=== PATIENT | female | born 1935 | race Caucasian/White ===

== ENCOUNTER → 2018-06-23 11:07 | Outpatient (CLI) | payer MEDICARE, SELFPAY ==
[2018-06-23 12:11] LABS: Prothrombin Time 27.8 sec (9.3-10.8)
== END ==
DX: I26.99 Other pulmonary embolism without acute cor pulmonale (principal); Z79.01 Long term (current) use of anticoagulants
CPT/HCPCS: 36415; 85610

== ENCOUNTER 2018-07-22 13:01 | Outpatient (CLI) | payer MEDICARE, SELFPAY ==
[2018-07-22 14:17] LABS: Prothrombin Time 27.9 sec (9.3-10.8)
== END 2018-07-22 13:21 ==
DX: I26.99 Other pulmonary embolism without acute cor pulmonale (principal); Z79.01 Long term (current) use of anticoagulants
CPT/HCPCS: 36415; 85610

== ENCOUNTER 2018-09-18 12:52 | Outpatient (CLI) | payer MEDICARE, SELFPAY ==
[2018-09-18 13:20] LABS: INR 2.2 (1.0-3.5); Prothrombin Time 20.5 sec (9.3-10.8)
== END 2018-09-18 13:12 ==
DX: I26.99 Other pulmonary embolism without acute cor pulmonale (principal); Z79.1 Long term (current) use of non-steroidal anti-inflammatories (NSAID)
CPT/HCPCS: 36415; 85610

== ENCOUNTER 2018-10-14 12:44 | Outpatient (CLI) | payer MEDICARE, SELFPAY ==
--- NOTE | 2018-10-14 12:45 | DI.RAD_ITS ---
SYMPTOMS/DIAGNOSIS: RT HIP PAIN, ALYSSA ROSA, M25.551 AP PELVIS: Comparison 03/18/17. There are again seen post surgical changes of bilateral total hip replacements. No evidence of hardware failure is seen. The bones are intact and normally mineralized. The soft tissues are unremarkable. IMPRESSION: Stable bilateral THR.
== END 2018-10-14 13:04 ==
PROVIDERS: Visit Provider Orthopaedic Surgery
DX: M25.551 Pain in right hip (principal); Z96.643 Presence of artificial hip joint, bilateral
CPT/HCPCS: 72170

== ENCOUNTER 2018-10-14 12:46 | Outpatient (CLI) | payer MEDICARE, SELFPAY ==
[2018-10-14 13:10] LABS: INR 2.5 (1.0-3.5)
== END 2018-10-14 13:06 ==
DX: I26.99 Other pulmonary embolism without acute cor pulmonale (principal); Z79.01 Long term (current) use of anticoagulants
CPT/HCPCS: 36415; 72170; 85610

== ENCOUNTER → 2018-10-17 08:49 | Outpatient (BNVA) | payer MEDICARE, SELFPAY | PROVIDERS: Visit Provider Orthopaedic Surgery | DX: M79.604 Pain in right leg (principal); I10 Essential (primary) hypertension | CPT/HCPCS: 99211; 99213 ==

== ENCOUNTER 2018-11-19 16:14 | Outpatient (CLI) | payer MEDICARE, SELFPAY ==
[2018-11-19 16:58] LABS: INR 2.9 (0.9-1.1); Prothrombin Time 29.7 sec (9.3-11.0)
== END 2018-11-19 16:34 ==
DX: I26.99 Other pulmonary embolism without acute cor pulmonale (principal); Z79.01 Long term (current) use of anticoagulants
CPT/HCPCS: 36415; 85610

== ENCOUNTER → 2018-11-25 08:45 | Outpatient (BNVA) | payer MEDICARE, SELFPAY | PROVIDERS: Visit Provider Orthopaedic Surgery | DX: M17.0 Bilateral primary osteoarthritis of knee (principal); I10 Essential (primary) hypertension | CPT/HCPCS: 20610; 99213; J7325 ==

== ENCOUNTER 2018-12-06 09:51 | Outpatient (CLI) | payer MEDICARE, SELFPAY ==
[2018-12-06 12:01] LABS: ALT 30 U/L (12-78); AST 18 U/L (15-37); Albumin 3.9 g/dL (3.4-5.0); Alkaline Phosphatase 74 U/L (46-116); Anion Gap 6.5 mmol/L (3-11); BUN 31 mg/dL (7-18); Bilirubin, Total 0.9 mg/dL (0.2-1.0); CO2 30.5 mmol/L (21.0-32.0); CREATININE 0.86 mg/dL (0.55-1.02); Chloride 104 mmol/L (98-107); Glucose 96 mg/dL (70-100); Sodium 141 mmol/L (136-145); TSH (W/Ref FT4) 2.39 uIU/mL (0.358-3.74); Total Protein 6.7 g/dL (6.4-8.2)
== END 2018-12-06 10:11 ==
DX: E03.9 Hypothyroidism, unspecified (principal); I10 Essential (primary) hypertension; G47.00 Insomnia, unspecified
CPT/HCPCS: 36415; 80053; 84443

== ENCOUNTER 2019-01-20 07:56 | Outpatient (CLI) | payer MEDICARE, SELFPAY ==
--- NOTE | 2019-01-20 12:00 | DI.MAMMO_ITS ---
SYMPTOMS/DIAGNOSIS: SCREENING, Z12.31 MAMMOGRAM: Mammograms were interpreted according to the usual protocol including computer analysis with CAD system, tomosynthesis and C view imaging. Comparison is made with prior examinations. Breast density B. No suspicious masses or microcalcifications are seen. The skin and axilla are unremarkable. There is appears to be artifact over the posterior right breast on the mediolateral oblique view. A repeat view of the right MLO should be obtained at no charge to the patient. IMPRESSION: No evidence for malignancy. Category 0. MQSA ASSESSMENT OF FINDINGS: Incomplete: Needs additional imaging evaluation. Category 0. Patient will receive a letter notifying them of these results. BI-RADS category B. There are scattered areas of fibroglandular density.
== END 2019-01-20 08:16 ==
DX: Z12.31 Encounter for screening mammogram for malignant neoplasm of breast (principal); N64.59 Other signs and symptoms in breast; R92.8 Other abnormal and inconclusive findings on diagnostic imaging of breast
CPT/HCPCS: 77063; 77067

== ENCOUNTER 2019-01-29 00:39 | Outpatient (CLI) | payer MEDICARE, SELFPAY ==
--- NOTE | 2019-01-29 10:00 | DI.MAMMO_ITS ---
SYMPTOMS/DIAGNOSIS: F/U MAMMO, ARTIFACT OVER POSTERIOR RT BREAST ON MLO VIEW REPEAT MLO VIEWS OF THE RIGHT BREAST: Additional images are interpreted according to the usual protocol including tomosynthesis and 2D imaging. The follow up images are of good technical quality and reveal no findings to suggest a malignancy. Category I examination. Yearly screening mammography is recommended. Breast density Category B. MQSA ASSESSMENT OF FINDINGS: Negative. Category 1. Patient will receive a letter notifying them of these results. BI-RADS category B. There are scattered areas of fibroglandular density.
== END 2019-01-29 00:59 ==
DX: Z12.31 Encounter for screening mammogram for malignant neoplasm of breast (principal); R92.8 Other abnormal and inconclusive findings on diagnostic imaging of breast; N64.59 Other signs and symptoms in breast
CPT/HCPCS: 77063; 77067

== ENCOUNTER 2019-02-18 12:29 | Outpatient (CLI) | payer MEDICARE, SELFPAY ==
[2019-02-18 13:09] LABS: INR 2.5 (0.9-1.1); Prothrombin Time 24.8 sec (9.3-11.0)
== END 2019-02-18 12:49 ==
DX: I26.99 Other pulmonary embolism without acute cor pulmonale (principal); Z79.01 Long term (current) use of anticoagulants
CPT/HCPCS: 36415; 85610

== ENCOUNTER 2019-03-10 09:49 | Outpatient (CLI) | payer MEDICARE, SELFPAY ==
[2019-03-10 11:21] LABS: INR 2.4 (0.9-1.1)
== END 2019-03-10 10:09 ==
DX: I26.99 Other pulmonary embolism without acute cor pulmonale (principal); Z79.01 Long term (current) use of anticoagulants
CPT/HCPCS: 36415; 85610

== ENCOUNTER 2019-03-26 09:41 | Outpatient (CLI) | payer MEDICARE, SELFPAY ==
[2019-03-26 10:14] LABS: INR 2.3 (0.9-1.1); Prothrombin Time 22.7 sec (9.3-11.0)
== END 2019-03-26 10:01 ==
DX: I26.99 Other pulmonary embolism without acute cor pulmonale (principal); Z79.01 Long term (current) use of anticoagulants
CPT/HCPCS: 36415; 85610

== ENCOUNTER 2019-04-28 10:14 | Outpatient (CLI) | payer MEDICARE, SELFPAY ==
[2019-04-28 11:13] LABS: INR 2.4 (0.9-1.1); Prothrombin Time 23.9 sec (9.3-11.0)
== END 2019-04-28 10:34 ==
DX: I26.99 Other pulmonary embolism without acute cor pulmonale (principal); Z79.01 Long term (current) use of anticoagulants
CPT/HCPCS: 36415; 85610

== ENCOUNTER → 2019-05-26 09:43 | Outpatient (BNVA) | payer MEDICARE, SELFPAY | PROVIDERS: Visit Provider Orthopaedic Surgery | DX: M17.0 Bilateral primary osteoarthritis of knee (principal); M17.11 Unilateral primary osteoarthritis, right knee; M17.12 Unilateral primary osteoarthritis, left knee; I10 Essential (primary) hypertension | CPT/HCPCS: 20610; 99213; J7325 ==

== ENCOUNTER 2019-05-28 10:21 | Outpatient (CLI) | payer MEDICARE, SELFPAY ==
[2019-05-28 11:14] LABS: INR 2.8 (0.9-1.1); Prothrombin Time 28.4 sec (9.3-11.0)
== END 2019-05-28 10:41 ==
DX: I26.99 Other pulmonary embolism without acute cor pulmonale (principal); Z79.01 Long term (current) use of anticoagulants
CPT/HCPCS: 36415; 85610

== ENCOUNTER 2019-06-30 13:31 | Outpatient (CLI) | payer MEDICARE, SELFPAY ==
[2019-06-30 14:35] LABS: INR 2.9 (0.9-1.1); Prothrombin Time 29.1 sec (9.3-11.0)
== END 2019-06-30 13:51 ==
DX: I26.99 Other pulmonary embolism without acute cor pulmonale (principal); Z79.01 Long term (current) use of anticoagulants
CPT/HCPCS: 36415; 85610

== ENCOUNTER 2019-07-30 09:35 | Outpatient (CLI) | payer MEDICARE, SELFPAY ==
[2019-07-30 10:05] LABS: INR 2.6 (0.9-1.1); Prothrombin Time 25.8 sec (9.3-11.0)
== END 2019-07-30 09:55 ==
DX: I26.99 Other pulmonary embolism without acute cor pulmonale (principal); Z79.01 Long term (current) use of anticoagulants
CPT/HCPCS: 36415; 85610

== ENCOUNTER 2019-09-08 10:35 | Outpatient (CLI) | payer MEDICARE, SELFPAY ==
[2019-09-08 11:52] LABS: INR 2.1 (0.9-1.1); Prothrombin Time 20.8 sec (9.3-11.0)
== END 2019-09-08 10:55 ==
DX: I26.99 Other pulmonary embolism without acute cor pulmonale (principal); Z79.01 Long term (current) use of anticoagulants
CPT/HCPCS: 36415; 85610

== ENCOUNTER 2019-10-12 13:48 | Outpatient (CLI) | payer MEDICARE, SELFPAY ==
[2019-10-12 14:30] LABS: INR 2.7 (0.9-1.1); Prothrombin Time 26.9 sec (9.3-11.0)
== END 2019-10-12 14:08 ==
DX: I26.99 Other pulmonary embolism without acute cor pulmonale (principal); Z79.01 Long term (current) use of anticoagulants
CPT/HCPCS: 36415; 85610

== ENCOUNTER 2019-11-12 10:18 | Outpatient (CLI) | payer MEDICARE, SELFPAY ==
[2019-11-12 10:45] LABS: INR 2.7 (0.9-1.1); Prothrombin Time 26.9 sec (9.3-11.0)
== END 2019-11-12 10:38 ==
DX: I26.99 Other pulmonary embolism without acute cor pulmonale (principal); Z79.01 Long term (current) use of anticoagulants
CPT/HCPCS: 36415; 85610

== ENCOUNTER → 2019-11-23 08:47 | Outpatient (BNVA) | payer MEDICARE, SELFPAY | PROVIDERS: Visit Provider Student in an Organized Health Care Education/Training Program | DX: M17.11 Unilateral primary osteoarthritis, right knee (principal); M17.12 Unilateral primary osteoarthritis, left knee; M25.561 Pain in right knee; M25.562 Pain in left knee | CPT/HCPCS: 20610; 99214; J7325 ==

== ENCOUNTER 2019-12-19 01:38 | Outpatient (CLI) | payer MEDICARE, SELFPAY ==
[2019-12-19 09:28] LABS: INR 2.4 (0.9-1.1); Prothrombin Time 23.9 sec (9.3-11.0)
[2019-12-19 11:12] LABS: ALT 26 U/L (14-59); AST 22 U/L (15-37); Alkaline Phosphatase 76 U/L (46-116); BUN 22 mg/dL (7-18); Bilirubin, Total 0.9 mg/dL (0.2-1.0); CREATININE 0.74 mg/dL (0.55-1.02); Calcium 8.8 mg/dL (8.5-10.1); Chloride 102 mmol/L (98-107); Glucose 83 mg/dL (74-106); Potassium 3.9 mmol/L (3.5-5.1); Sodium 141 mmol/L (136-145); TSH (W/Ref FT4) 4.26 uIU/mL (0.36-3.74); Total Protein 7.1 g/dL (6.4-8.2)
[2019-12-19 11:42] LABS: FREE T4 0.93 ng/dL (0.76-1.46)
== END 2019-12-19 01:58 ==
DX: E03.9 Hypothyroidism, unspecified (principal); E05.00 Thyrotoxicosis with diffuse goiter without thyrotoxic crisis or storm; I10 Essential (primary) hypertension; F32.9 Major depressive disorder, single episode, unspecified; I26.99 Other pulmonary embolism without acute cor pulmonale; Z79.01 Long term (current) use of anticoagulants; G47.33 Obstructive sleep apnea (adult) (pediatric); R94.31 Abnormal electrocardiogram [ECG] [EKG]; M15.9 Polyosteoarthritis, unspecified
CPT/HCPCS: 36415; 80053; 84439; 84443; 85610

== ENCOUNTER 2020-01-22 02:08 | Outpatient (CLI) | payer MEDICARE, SELFPAY ==
--- NOTE | 2020-01-22 13:28 | DI.MAMMO_ITS ---
EXAM: MG MAMMO SCREENING CLINICAL HISTORY: SCREENING, Z12.39 TECHNIQUE: Bilateral full field digital CC and MLO mammographic images were obtained with 3D tomosyn thesis and utilizing computer aided detection (CAD). COMPARISON: Available for comparison. FINDINGS: Masses/Architectural Distortion: None seen. Microcalcifications: No suspicious pleomorphic-type are seen. Skin Thickening/Nipple Retraction: None. IMPRESSION: 1. No significant interval change with no specific features of malignancy noted. 2. Unless there is more urgent need, screening mammography is recommended, as per [employer] guidelines. BI-RADS Cat 1 - Negative Breast Density - Category B - Scattered areas of fibroglandular density A negative radiographic report should not delay biopsy if a dominant or clinically suspicious mass is present. Up to ten percent of cancers are not identified on mammography. A negative report may reinforce clinical impression. Adenosis and dense breasts may obscure an underlying neoplasm. False positive reports average 6 to 10%. Patient will receive a letter notifying them of these results.
== END 2020-01-22 02:28 ==
DX: Z12.31 Encounter for screening mammogram for malignant neoplasm of breast (principal)
CPT/HCPCS: 77063; 77067

== ENCOUNTER 2020-01-26 02:17 | Outpatient (CLI) | payer MEDICARE, SELFPAY ==
[2020-01-26 09:51] LABS: INR 2.1 (0.9-1.1); Prothrombin Time 20.6 sec (9.3-11.0)
[2020-01-26 10:37] LABS: Calculated LDL 151 mg/dL (<100); Cholesterol 249 mg/dL (<200); HDL Cholesterol 78 mg/dL (40-60); TSH (W/Ref FT4) 4.23 uIU/mL (0.36-3.74); Triglyceride 100 mg/dL (<150)
[2020-01-26 10:55] LABS: FREE T4 0.81 ng/dL (0.76-1.46)
== END 2020-01-26 02:37 ==
DX: E78.5 Hyperlipidemia, unspecified (principal); E05.00 Thyrotoxicosis with diffuse goiter without thyrotoxic crisis or storm; G47.00 Insomnia, unspecified; I26.99 Other pulmonary embolism without acute cor pulmonale; Z79.01 Long term (current) use of anticoagulants
CPT/HCPCS: 36415; 80061; 84439; 84443; 85610

== ENCOUNTER → 2020-05-23 08:56 | Outpatient (BNVA) | payer MEDICARE, SELFPAY | PROVIDERS: Visit Provider Student in an Organized Health Care Education/Training Program | DX: M17.11 Unilateral primary osteoarthritis, right knee (principal); M17.12 Unilateral primary osteoarthritis, left knee; I10 Essential (primary) hypertension | CPT/HCPCS: 20610; 99212; 99213; J7325 ==

== ENCOUNTER 2020-08-17 01:22 | Outpatient (CLI) | payer MEDICARE, SELFPAY ==
[2020-08-17 11:51] LABS: INR 2.7 (0.9-1.1); Prothrombin Time 26.1 sec (9.3-11.0)
== END 2020-08-17 01:42 ==
DX: I26.99 Other pulmonary embolism without acute cor pulmonale (principal); Z79.01 Long term (current) use of anticoagulants
CPT/HCPCS: 36415; 85610

== ENCOUNTER 2020-09-20 01:56 | Outpatient (CLI) | payer MEDICARE, SELFPAY ==
[2020-09-20 10:01] LABS: Prothrombin Time 24.1 sec (9.3-11.0)
[2020-09-20 10:09] LABS: INR 2.4 (0.9-1.1)
== END 2020-09-20 02:16 ==
DX: Z79.01 Long term (current) use of anticoagulants (principal); I26.99 Other pulmonary embolism without acute cor pulmonale
CPT/HCPCS: 36415; 85610

== ENCOUNTER 2020-10-24 02:36 | Outpatient (CLI) | payer MEDICARE, SELFPAY ==
[2020-10-24 11:37] LABS: INR 1.7 (0.9-1.1)
== END 2020-10-24 02:56 ==
DX: I26.99 Other pulmonary embolism without acute cor pulmonale (principal); Z79.01 Long term (current) use of anticoagulants
CPT/HCPCS: 36415; 85610

== ENCOUNTER 2020-11-07 15:21 | Outpatient (CLI) | payer MEDICARE, SELFPAY ==
[2020-11-07 12:53] LABS: INR 2.6 (0.9-1.1); Prothrombin Time 25.2 sec (9.3-11.0)
== END 2020-11-07 15:41 ==
DX: I26.99 Other pulmonary embolism without acute cor pulmonale (principal); Z79.01 Long term (current) use of anticoagulants
CPT/HCPCS: 36415; 85610

== ENCOUNTER 2020-11-22 02:58 | Outpatient (CLI) | payer MEDICARE, SELFPAY ==
[2020-11-22 13:37] LABS: INR 2.9 (0.9-1.1); Prothrombin Time 28.2 sec (9.3-11.0)
== END 2020-11-22 03:18 ==
DX: I26.99 Other pulmonary embolism without acute cor pulmonale (principal); Z79.01 Long term (current) use of anticoagulants
CPT/HCPCS: 36415; 85610

== ENCOUNTER → 2020-11-28 08:53 | Outpatient (BNVA) | payer MEDICARE, SELFPAY | PROVIDERS: Visit Provider Student in an Organized Health Care Education/Training Program | DX: M17.11 Unilateral primary osteoarthritis, right knee (principal); M17.12 Unilateral primary osteoarthritis, left knee | CPT/HCPCS: 20610; 99212; J7325 ==

== ENCOUNTER 2021-01-12 04:07 | Outpatient (CLI) | payer MEDICARE, SELFPAY ==
[2021-01-12 12:08] LABS: ALT 24 U/L (14-59); AST 19 U/L (15-37); Albumin 3.9 g/dL (3.4-5.0); Alkaline Phosphatase 74 U/L (46-116); BUN 26 mg/dL (7-18); Bilirubin, Total 0.7 mg/dL (0.2-1.0); CREATININE 0.8 mg/dL (0.55-1.02); Calcium 8.9 mg/dL (8.5-10.1); Chloride 101 mmol/L (98-107); Glucose 88 mg/dL (74-106); Potassium 4.1 mmol/L (3.5-5.1); Sodium 138 mmol/L (136-145); TSH (W/Ref FT4) 3.64 uIU/mL (0.36-3.74)
== END 2021-01-12 04:08 | disposition home or self-care (01) ==
LOC: LBO 04:07
DX: I10 Essential (primary) hypertension (principal); E05.00 Thyrotoxicosis with diffuse goiter without thyrotoxic crisis or storm
CPT/HCPCS: 36415; 80053; 84443

== ENCOUNTER 2021-01-24 10:37 | Outpatient (REF) | payer MEDICARE, SELFPAY ==
--- NOTE | 2021-01-24 09:00 | SKI_PTH ---
PATIENT: Aziza Victor LOC: [facility] U#:[id number] AGE/SX: 85/F ROOM: RE01/24/[address]: Caroline Greenberg APRN : 1935 BED: DIS: 01/24/2021 SPEC #: [id number] RECD: 01/24/21 12:53 STATUS: VIKTOR REQ #: [id number] LUIS ARMANDO: 01/24/21 09:[address]: Caroline Greenberg DEPT: Surgical Specimen RECD BY: Melanie Reis Tissues: 1 - SKIN CYST/TAG/DEBRIDEMENT Procedures: GROSS AND MICRO LEVEL 3 Comments: [id number]
== END 2021-01-24 10:38 | disposition home or self-care (01) ==
LOC: LBN 10:37
DX: B07.8 Other viral warts (principal); Z85.828 Personal history of other malignant neoplasm of skin
CPT/HCPCS: 88304

== ENCOUNTER 2021-02-01 01:46 | Outpatient (CLI) | payer MEDICARE, SELFPAY ==
--- NOTE | 2021-02-01 10:49 | DI.MAMMO_ITS ---
EXAM: MG MAMMO SCREENING CLINICAL HISTORY: screening,Z12.39. TECHNIQUE: Bilateral full field digital CC and MLO mammographic images were obtained with 3D tomosyn thesis and utilizing computer aided detection (CAD). COMPARISON: Prior mammograms dating back to 2010, the most recent being January 2020. FINDINGS: There are no new spiculated masses nor malignant appearing microcalcification groups. Peripherally calcified small benign oil cyst in the medial right breast is unchanged. There is no significant architectural distortion nor skin thickening-retraction. IMPRESSION: No radiographic evidence of malignancy. BI-RADS Category 1 - Negative Breast Density - Category B - Scattered areas of fibroglandular density Breast density Category C or D implies that the patient has dense breast tissue. Dense breast tissue can make it harder to find cancer on a mammogram. Dense breast tissue is also associated with an incr eased risk of breast cancer. This information about the result of the mammogram report was provided to the patient to raise their awareness. Use this report when you speak with the patient about their risks for breast cancer, which includes their family history. At that time, you may recommend additional screening tests (Ultrasoun d or MRI) as these tests may add significant information. A negative radiographic report should not delay biopsy if a dominant or clinically suspicious mass is present. Up to ten percent of cancers are not identified on mammography. A negative report may reinforce clinical impression. Adenosis and dense breasts may obscure an underlying neoplasm. False positive reports average 6 to 10%. Patient will receive a letter notifying them of these results.
== END 2021-02-01 02:06 ==
DX: Z12.31 Encounter for screening mammogram for malignant neoplasm of breast (principal)
CPT/HCPCS: 77063; 77067

== ENCOUNTER 2021-03-06 04:28 | Outpatient (CLI) | payer MEDICARE, SELFPAY ==
[2021-03-06 13:15] LABS: INR 2.5 (0.9-1.1); Prothrombin Time 24.6 sec (9.3-11.0)
== END 2021-03-06 04:29 | disposition home or self-care (01) ==
LOC: LBO 04:28
DX: I26.99 Other pulmonary embolism without acute cor pulmonale (principal); Z79.01 Long term (current) use of anticoagulants
CPT/HCPCS: 36415; 85610

== ENCOUNTER 2021-04-07 02:06 | Outpatient (CLI) | payer MEDICARE, SELFPAY ==
[2021-04-07 16:35] LABS: INR 1.7 (0.9-1.1); Prothrombin Time 17.2 sec (9.3-11.0)
== END 2021-04-07 02:07 | disposition home or self-care (01) ==
LOC: LBO 02:07
DX: I26.99 Other pulmonary embolism without acute cor pulmonale (principal); Z79.01 Long term (current) use of anticoagulants
CPT/HCPCS: 36415; 85610

== ENCOUNTER 2021-04-18 04:02 | Outpatient (CLI) | payer MEDICARE, SELFPAY ==
[2021-04-18 08:25] LABS: INR 2.4 (0.9-1.1); Prothrombin Time 23.9 sec (9.3-11.0)
== END 2021-04-18 04:03 | disposition home or self-care (01) ==
LOC: LBO 04:02
DX: I26.99 Other pulmonary embolism without acute cor pulmonale (principal); Z79.01 Long term (current) use of anticoagulants
CPT/HCPCS: 36415; 85610

== ENCOUNTER 2021-04-26 03:07 | Outpatient (CLI) | payer MEDICARE, SELFPAY ==
[2021-04-26 12:59] LABS: INR 2.8 (0.9-1.1); Prothrombin Time 27.5 sec (9.3-11.0)
== END 2021-04-26 03:08 | disposition home or self-care (01) ==
LOC: LOS 03:08
DX: I26.99 Other pulmonary embolism without acute cor pulmonale (principal); Z79.01 Long term (current) use of anticoagulants
CPT/HCPCS: 36415; 85610

== ENCOUNTER 2021-05-23 04:07 | Outpatient (CLI) | payer MEDICARE, SELFPAY ==
[2021-05-23 08:32] LABS: INR 2.5 (0.9-1.1); Prothrombin Time 24.5 sec (9.3-11.0)
== END 2021-05-23 04:08 | disposition home or self-care (01) ==
LOC: LBO 04:07
DX: I26.99 Other pulmonary embolism without acute cor pulmonale (principal); Z79.01 Long term (current) use of anticoagulants
CPT/HCPCS: 36415; 85610

== ENCOUNTER 2021-06-08 11:05 | Outpatient (CLI) | payer MEDICARE, SELFPAY ==
--- OUTSIDE RECORDS SUMMARY | 2021-06-08 11:07 | XMS_ITS ---
:1935 Author Care Team Providers Name Role Phone ELENA ALIZE Primary Care Provider [phone] ELENA HERRMANN Referring Provider [phone] ELENA HERRMANN Primary Care Provider [phone] Allergies Code Code System Name Reaction Severity Status Onset 108364 RxNorm Escitalopram ? ? Active ? 50253 RxNorm Simvastatin ? ? Active ? Sulfa ? ? Active ? (Sulfonamide Antibiotics) Medications Name Status Start Date Stop Date ? ? acetaminophen 500 mg tablet Active ? Not available Take 2 tablets twice a day by oral route as needed. amlodipine 2.5 mg tablet Active ? Not kerry ilable Take 1 tablet every day by oral route. bupropion HCl 100 mg tablet Active ? Not available Take 1 tablet twice a day by oral route. Claritin-D 12 Hour Active ? Not available levothyroxine 50 mcg tablet Active ? Not available Take 1 tablet every day by oral route. losartan 100 mg tablet Active ? Not avail able Take 1 tablet every day by oral route. multivitamin tablet Active ? Not availabl e Take by oral route. Vitamin D2 10 mcg (400 unit) tablet Active ? Not available Take 1 tablet every day by oral route. warfarin 5 mg tablet Active ? Not availab le TAKE 0-2 TABLET (5 MG) BY ORAL ROUTE ONCE DAILY Problems Name Status Onset Date Source ? Hypothyroidism Active ? ? Depressive Disorder Active ? ? Hypertensive Disorder Active ? ? Sleep Apnea Active ? ? Procedures None recorded. Results Lab Results None recorded. Past Encounters None recorded. Social History None recorded. Vaccine List None recorded. Plan of Care Reminders Provider Appointments None ? ? recorded. Lab None ? ? recorded. Referral None ? ? recorded. Procedures None ? ? recorded. Surgeries None ? ? recorded. Imaging None ? ? recorded. Vitals Height Weight BMI Blood Pressure 167.01 cm 72.57 kg 26 kg/m2 146/60 mm[Hg]
--- OUTSIDE RECORDS SUMMARY | 2021-06-08 11:07 | XMS_ITS ---
:1935 Author Care Team Providers Name Role Phone [facility] Primary Care Provider [phone] ELENA HERRMANN Primary Care Provider [phone] Allergies Code Code System Name Reaction Severity Status Onset 368208 RxNorm Lexapro ? ? Active ? 96702 RxNorm Simvastatin ? ? Active ? Sulfa ? ? Active ? (Sulfonamide Antibiotics) Medications Name Status Start Date Stop Date ? ? acetaminophen 500 mg tablet Active ? Not available Take 1000 mg twice a day by oral route. amlodipine 2.5 mg tablet Active ? Not kerry ilable Take 1 tablet every day by oral route. bupropion HCl 100 mg tablet Active ? Not available Take 1 tablet every day by oral route. doxepin 10 mg capsule Completed ? 05/10/2020 Take 1 PO QHS Flonase Allergy Relief 50 mcg/actuation nasal spray,suspension A ctive ? Not available [place] 1 spray every day by intranasal route as needed. levothyroxine 50 mcg tablet Active ? Not available Take 1 tablet every day by oral route. loratadine 10 mg tablet Active ? Not avai lable Take 1 tablet every day by oral route as needed. losartan 100 mg tablet Active ? Not avail able Take 1 tablet every day by oral route. multivitamin Active ? Not available 1 tab daily Silenor 3 mg tablet Completed ? 02/09/2020 Take 1 tablet every day by oral route at bedtime for 30 days. triamcinolone acetonide 0.5 % topical cream Active ? Not available APPLY A THIN LAYER TO THE AFFECTED AREA(S) BY TOPICAL ROUTE 2 T IMES PER DAY warfarin Active ? Not available 5mg four days week. 2.5mg three days week Problems Name Status Onset Date Source ? Polyp of Colon Active 06/24/2019 ? Graves' Disease Active 06/24/2019 ? Hyperlipidemia Active 06/24/2019 ? Depressive Disorder Active 06/24/2019 ? Obstructive Sleep Apnea Syndrome Active 06/24/2019 ? Otitis Externa Active 06/24/2019 ? Hypertensive Disorder Active 06/24/2019 ? Pulmonary Embolism Active 06/24/2019 ? Chronic Rhinitis Active 06/24/2019 ? Genuine Stress Incontinence Active 06/24/2019 ? Chronic Dermatitis Active 06/24/2019 ? Eczema Active 06/24/2019 ? Osteoarthritis of Knee Active 06/24/2019 ? Low Back Pain Active 06/24/2019 ? Electrocardiogram Abnormal Active 06/24/2019 ? Insomnia Active 09/01/2019 ? Procedures None recorded. Results Lab Results None recorded. Past Encounters 11/23/2020 Obstructive Sleep Apnea Syndrome; Insomn ia Suzanne Leo POULTRY SCALDER: [address] [place] [phone], Ph. Social History Tobacco Smoking Status Former Smoker Notes: quit in 1966 Vaccine List None recorded. Plan of Care Reminders Provider Appointments None ? ? recorded. Lab None ? ? recorded. Referral None ? ? recorded. Procedures None ? ? recorded. Surgeries None ? ? recorded. Imaging None ? ? recorded. Vitals 11/23/2020 09:00AM Office 30 Weight Blood Pressure 73.94 kg 128/60 mm[Hg] 11/17/2019 10:30AM Office 30 Height Weight BMI Blood Pressure 165.1 cm 73.94 kg 27.1 kg/m2 138/64 mm[Hg] 09/01/2019 11:15AM Office 30 Height Weight BMI Blood Pressure 165.1 cm 72.21 kg 26.5 kg/m2 130/70 mm[Hg] 06/25/2019 09:15AM New Patient 47 Height Weight BMI Blood Pressure 165.1 cm 71.99 kg 26.4 kg/m2 120/70 mm[Hg]
== END 2021-06-08 11:06 | disposition home or self-care (01) ==
LOC: DIORS 11:05
PROVIDERS: Visit Provider Student in an Organized Health Care Education/Training Program
DX: M17.12 Unilateral primary osteoarthritis, left knee (principal); M17.11 Unilateral primary osteoarthritis, right knee
CPT/HCPCS: 20610; J7325

== ENCOUNTER 2021-06-27 03:47 | Outpatient (CLI) | payer MEDICARE, SELFPAY ==
[2021-06-27 11:19] LABS: INR 2.6 (0.9-1.1); Prothrombin Time 25.3 sec (9.3-11.0)
== END 2021-06-27 03:48 | disposition home or self-care (01) ==
LOC: LBO 03:47
DX: I26.99 Other pulmonary embolism without acute cor pulmonale (principal); Z79.01 Long term (current) use of anticoagulants
CPT/HCPCS: 36415; 85610

== ENCOUNTER 2021-07-31 02:51 | Outpatient (CLI) | payer MEDICARE, SELFPAY ==
[2021-07-31 10:34] LABS: Prothrombin Time 29.6 sec (9.3-11.0)
== END 2021-07-31 02:52 | disposition home or self-care (01) ==
LOC: LBO 02:51
DX: I26.99 Other pulmonary embolism without acute cor pulmonale (principal); Z79.01 Long term (current) use of anticoagulants
CPT/HCPCS: 36415; 85610

== ENCOUNTER 2021-09-07 02:03 | Outpatient (CLI) | payer MEDICARE, SELFPAY ==
[2021-09-07 10:47] LABS: INR 2.6 (0.9-1.1); Prothrombin Time 25.6 sec (9.3-11.0)
== END 2021-09-07 02:04 | disposition home or self-care (01) ==
LOC: LBO 02:04
DX: Z51.81 Encounter for therapeutic drug level monitoring (principal)
CPT/HCPCS: 36415; 85610

== ENCOUNTER 2021-10-06 02:45 | Outpatient (CLI) | payer MEDICARE, SELFPAY ==
[2021-10-06 09:14] LABS: INR 2.7 (0.9-1.1); Prothrombin Time 26.1 sec (9.3-11.0)
== END 2021-10-06 02:46 | disposition home or self-care (01) ==
LOC: LBO 02:45
DX: Z51.81 Encounter for therapeutic drug level monitoring (principal)
CPT/HCPCS: 36415; 85610

== ENCOUNTER 2021-11-15 04:17 | Outpatient (CLI) | payer MEDICARE, SELFPAY ==
[2021-11-15 14:04] LABS: INR 2.6 (0.9-1.1); Prothrombin Time 25.7 sec (9.3-11.0)
== END 2021-11-15 04:18 | disposition home or self-care (01) ==
LOC: LBO 04:17
DX: Z51.81 Encounter for therapeutic drug level monitoring (principal)
CPT/HCPCS: 36415; 85610

== ENCOUNTER → 2021-12-11 13:30 | Outpatient (BNVA) | payer MEDICARE, SELFPAY | PROVIDERS: Visit Provider Student in an Organized Health Care Education/Training Program | DX: M17.11 Unilateral primary osteoarthritis, right knee (principal); M17.12 Unilateral primary osteoarthritis, left knee | CPT/HCPCS: 20610; J7325 ==

== ENCOUNTER 2022-01-05 04:25 | Outpatient (CLI) | payer MEDICARE, SELFPAY ==
[2022-01-05 14:11] LABS: INR 2.5 (0.9-1.1); Prothrombin Time 24.7 sec (9.3-11.0)
== END 2022-01-05 04:26 | disposition home or self-care (01) ==
LOC: LBO 04:25
DX: Z51.81 Encounter for therapeutic drug level monitoring (principal); I26.99 Other pulmonary embolism without acute cor pulmonale
CPT/HCPCS: 36415; 85610

== ENCOUNTER 2022-02-09 02:29 | Outpatient (CLI) | payer MEDICARE, SELFPAY ==
[2022-02-09 11:50] LABS: INR 2.4 (0.9-1.1); Prothrombin Time 23.2 sec (9.3-11.0)
== END 2022-02-09 02:30 | disposition home or self-care (01) ==
DX: Z51.81 Encounter for therapeutic drug level monitoring (principal)
CPT/HCPCS: 36415; 85610

== ENCOUNTER 2022-03-13 02:21 | Outpatient (CLI) | payer MEDICARE, SELFPAY | END 2022-03-13 02:22 | disposition home or self-care (01) | LOC: LBO 02:21 ==

== ENCOUNTER 2022-03-16 01:31 | Outpatient (CLI) | payer MEDICARE, SELFPAY ==
--- NOTE | 2022-03-16 08:22 | DI.MAMMO_ITS ---
Exam(s) MAMMO SCREENING EXAM: MAMMO SCREENING CLINICAL HISTORY: screening,z12.39. TECHNIQUE: Bilateral full field digital CC and MLO mammographic images were obtained with 3D tomosyn thesis and utilizing computer aided detection (CAD). COMPARISON: Prior mammograms were reviewed, the most recent being January 2021. FINDINGS: There has been no significant change in the appearance and distribution of the fibroglandular tissue. Benign peripherally calcified small oil cyst in the medial aspect the right breast is unchanged There are no new spiculated masses nor malignant appearing microcalcification groups. There is no significant architectural distortion nor skin thickening-retraction. IMPRESSION: No radiographic evidence of malignancy. BI-RADS Category 1 - Negative Breast Density - Category B - Scattered areas of fibroglandular density Breast density Category C or D implies that the patient has dense breast tissue. Dense breast tissue can make it harder to find cancer on a mammogram. Dense breast tissue is also associated with an incr eased risk of breast cancer. This information about the result of the mammogram report was provided to the patient to raise their awareness. Use this report when you speak with the patient about their risks for breast cancer, which includes their family history. At that time, you may recommend additional screening tests (Ultrasoun d or MRI) as these tests may add significant information. A negative radiographic report should not delay biopsy if a dominant or clinically suspicious mass is present. Up to ten percent of cancers are not identified on mammography. A negative report may reinforce clinical impression. Adenosis and dense breasts may obscure an underlying neoplasm. False positive reports average 6 to 10%. Patient will receive a letter notifying them of these results.
== END 2022-03-16 01:51 ==
DX: Z12.31 Encounter for screening mammogram for malignant neoplasm of breast (principal); N60.01 Solitary cyst of right breast
CPT/HCPCS: 36415; 77063; 77067; 80053; 80061; 84443; 85610

== ENCOUNTER 2022-03-16 02:54 | Outpatient (CLI) | payer MEDICARE, SELFPAY ==
[2022-03-16 08:45] LABS: INR 2.4 (0.9-1.1); Prothrombin Time 23.5 sec (9.3-11.0)
[2022-03-16 10:26] LABS: ALT 25 U/L (14-59); AST 19 U/L (15-37); Alkaline Phosphatase 77 U/L (46-116); Anion Gap 8.1 mmol/L (3-11); BUN 23 mg/dL (7-18); CO2 27.9 mmol/L (21.0-32.0); CREATININE 0.8 mg/dL (0.55-1.02); Calcium 8.5 mg/dL (8.5-10.1); Calculated LDL 157 mg/dL (<100); Chloride 102 mmol/L (98-107); Cholesterol 259 mg/dL (<200); Glucose 97 mg/dL (74-106); HDL Cholesterol 87 mg/dL (40-60); Potassium 4.2 mmol/L (3.5-5.1); Sodium 138 mmol/L (136-145); TSH (W/Ref FT4) 2.62 uIU/mL (0.36-3.74); Total Protein 7.2 g/dL (6.4-8.2); Triglyceride 76 mg/dL (<150)
== END 2022-03-16 02:55 | disposition home or self-care (01) ==
LOC: LBO 02:55
DX: E05.00 Thyrotoxicosis with diffuse goiter without thyrotoxic crisis or storm (principal); E78.5 Hyperlipidemia, unspecified; I48.91 Unspecified atrial fibrillation; Z79.01 Long term (current) use of anticoagulants
CPT/HCPCS: 36415; 80053; 80061; 84443; 85610

== ENCOUNTER 2022-04-18 03:51 | Outpatient (CLI) | payer MEDICARE, SELFPAY ==
[2022-04-18 16:57] LABS: INR 2.6 (0.9-1.1); Prothrombin Time 24.5 sec (9.3-11.0)
== END 2022-04-18 03:52 | disposition home or self-care (01) ==
LOC: LBO 03:51
DX: I48.91 Unspecified atrial fibrillation (principal); Z79.01 Long term (current) use of anticoagulants
CPT/HCPCS: 36415; 85610

== ENCOUNTER 2022-06-08 01:20 | Outpatient (CLI) | payer MEDICARE, SELFPAY ==
--- OUTSIDE RECORDS SUMMARY | 2022-06-08 01:23 | XMS_ITS | Encounter Summary ---
:1935 Author Organization [facility] [place] [address] Care Team Providers Name Role Phone Unknown Primary Care Provider Unavailable Encounter Details Date Type Department Care Team Description 04/12/2020 External Results Medical Records Provider, Scanning [facility] [place] [address] Social History Tobacco Use Types Packs/Day Years Used Date Former Smoker Sex Assigned at Date Recorded Not on file documented as of this encounter Plan of Treatment Upcoming Encounters Date Type Specialty Care Team Description 07/23/2022 Office Visit Ophthalmology Lalit Willoughby MD [facility] OPHTHALMOLOGY [place], [place] [address] (Wo rk) documented as of this encounter Procedures Procedure Name Priority Date/Time Associated Diagnosis Comme nts SURGICAL PATHOLOGY Routine 04/12/2020 Results f or this SCAN procedure are i n the results section . documented in this encounter Results Scan Doc: Surgical Pathology (04/12/2020) Narrative This result has an attachment that is no t available. Historical Provider MD ABREU MGR SCAN EXT ORDR/RSLT documented in this encounter Visit Diagnoses Not on filedocumented in this encounter Care Teams Farm Manager Relationship Specialty Start Date End Date Unknown PCP - General 10/03/10 06/15/20 None documented as of this encounter
--- OUTSIDE RECORDS SUMMARY | 2022-06-08 01:23 | XMS_ITS | Clinical Summary ---
:1935 Author Organization [facility] Address [address] [place] [address] Care Team Providers Name Role Phone Astrid Neil MD Primary Care Provider Social History Tobacco Use Types Packs/Day Years Used Date Never Assessed Sex Assigned at Date Recorded Not on file Plan of Treatment Health Maintenance Due Date Last Done Comments Fall Risk Screening 2002 Insurance Payer Benefit Plan Subscriber ID Effective Phone Address Typ e / Group Dates MEDICARE MEDICARE A/B [id number] 2002-Pres [address] edicare ent [id number] [place] [address] [facility] [id number] 2020-Pres [phone] [address] [facility] ent [phone] [place] [address] ([place]) [place] [address] Care Teams Business Analyst Sales Operations Relationship Specialty Start Date End Date Astrid Neil MD PCP - General 01/23/[address] [place] [address] [address] [place], [place] [phone]
--- OUTSIDE RECORDS SUMMARY | 2022-06-08 01:23 | XMS_ITS | Encounter Summary ---
:1935 Author Organization [facility] Address [address] [place] [address] Care Team Providers Name Role Phone Unavailable Primary Care Provider Unavailable Encounter Details Date Type Department Care Team Description 09/26/2000 Results Only [facility] [place] - Kelly Florez, Chr istopher, conversion DO [address]IM [address] [place], [place] [id number] [place] [id number] (Wo rk) Social History Tobacco Use Types Packs/Day Years Used Date Never Assessed Sex Assigned at Date Recorded Not on file documented as of this encounter Plan of Treatment Not on filedocumented as of this encounter Procedures Procedure Name Priority Date/Time Associated Diagnosis Comme [facility] SURGICAL PATHOLOGY Routine 09/26/2000 0:00 EST Re sults for this procedure are i n the results section. documented in this encounter Results SURGICAL PATHOLOGY (09/26/2000 0:00 EST) Pathology Report: SURGICAL PATHOLOGY REPORT NIRALI NOLASCO Reports generated via electronic interface contain cody ginal data; LAB however they are lacking the format of the original re port. Caution should be taken when reading/interpreting unfo rmatted reports. Name: ? FEDERICO VICTOR TTE ? Accession #: ? [id number] ? : ? 1935 (Age: 65) ??F ? Collect Date: ? 09/26/2000 ? Location: ? [facility] ? Receive Date: ? 000 ? Provider: EVERT FLOREZ DO Copy to: PETER TEXIEIRA MD ? Final Pathologic Diagnosis: A. ?Cecum, biopsy: 1. ?Acute cryptitis and detached fragment of lymphoid follicle. B. ?Colon, biopsy at 60.0 cm: 1. ?Hyperplastic polyp. Document reviewed and electronically signed by: ANJELICA MICHELLE MD Report ??Date: 09/30/2000 15:29 By the signature above, the attending physician certif ies that he/she has personally conducted a gross and/or microscopic examin ation of the described specimens and rendered or confirmed the above diagnosi s. Specimen(s) Received: ? Biopsy: A. ?Cecum (#1) B. ?@ 60 cm (#2) Clinical History: ? Hs of adenomatous polyps Gross Description: ? Received in [place]e' s fixative labelled Nuevo and 1. Bx cecum is a jimenez irregular 0.3 x 0.2 x 0.2 cm soft tissue fragmen t. ??The specimen is entirely submitted as (A). Received in Hollande' s fixa tive labelled Kayleigh and 2. Bx at ??60 is a jimenez irregular 0.5 x 0.2 x 0.2 cm soft tissue fragmen t. ??The specimen is entirely submitted as (B). ??(Lakshmi Sheehan)/[facility] End of Report Specimen Performing Organization Address City/State/ZIP Code Phon e Number [facility] [address] [place] [address] SERVICES [facility] [address] [place] [address] documented in this encounter Visit Diagnoses Not on filedocumented in this encounter
--- OUTSIDE RECORDS SUMMARY | 2022-06-08 01:23 | XMS_ITS | Encounter Summary ---
:1935 Author Organization [facility] [place] [address] Care Team Providers Name Role Phone Caroline Greenberg DERIAN Primary Care Provider Reason for Visit Reason Onset Date Comments Follow-up 10/20/2020 Encounter Details Date Type Department Care Team Description 10/20/2020 Telephone Ophthalmology at [facility] Lalit Bhagat MD Follow-up [facility] [place] [address] OPHTHALMOLOGY DEPT [phone] [place], [place] [address] (Wo rk) Social History Tobacco Use Types Packs/Day Years Used Date Former Smoker Smokeless Tobacco: Former User Alcohol Use Standard Drinks/Week Comments Yes 0 (1 standard drink = 0.6 oz pure alcoho l) Sex Assigned at Date Recorded Not on file documented as of this encounter Miscellaneous Notes Telephone Encounter - Eusebia Sullivan - 10/20/2020 2:35 PM EST Patient scheduled Telephone Encounter - Kimberly Mercado - 10/20/2020 11:43 AM EST Called and left message to call and schedule appointments with Dr Willoughby: for at least first 2 pleasetry for Saturday injection clinics: Avastin OS #1/3 Today 6 weeks Avastin OS #2/3 MSO only 6 weeks Avastin OS #3/3 MSO only 6 weeks for Re-eval FV+MSO with DFE/OCT documented in this encounter Plan of Treatment Upcoming Encounters Date Type Specialty Care Team Description 07/23/2022 Office Visit Ophthalmology Lalit Willoughby MD [facility] ER OPHTHALMOLOGY [place], [place] [address] (Wo rk) documented as of this encounter Visit Diagnoses Not on filedocumented in this encounter Care Teams Financial Sales Representative Relationship Specialty Start Date End Date Caroline Greenberg APRN PCP - General Family Medicine 06/16/[address] [place] [address] documented as of this encounter
--- OUTSIDE RECORDS SUMMARY | 2022-06-08 01:23 | XMS_ITS | Encounter Summary ---
:1935 Author Organization [facility] [place] [address] Care Team Providers Name Role Phone Caroline Greenberg APRN Primary Care Provider Reason for Visit Reason Comments Procedure Avastin OU for Wet AMD Encounter Details Date Type Department Care Team Description 07/01/2021 Procedure visit Ophthalmology at Lalit Willoughby Exudati ve age-related [facility] NMD macular degeneration of [facility] both eyes with active Drive [address] [place], [place] OPHTHALMOLOGY neovasculariza tion [phone] DEPT [phone] [place] [address] Social History Tobacco Use Types Packs/Day Years Used Date Former Smoker Quit: 1966 Smokeless Tobacco: Former User Alcohol Use Standard Drinks/Week Comments Yes 0 (1 standard drink = 0.6 oz pure alcoho l) Sex Assigned at Date Recorded Not on file documented as of this encounter Patient Instructions Patient InstructionsBrooke Taylor - 07/01/2021 10:15 AM EDT Today you had your both eye(s) injected with a medication called Avastin. -Please pay attention to your future scheduled appointments if you are having repeat injections. Future injections in the same eye must be at least 28 days apart. -Please, do not rub or wipe your eye for 24-48 hours after the injection as it would create more irritation.If you feel you must, close your eyes, dab gently, and use the sterile pink saline bullets toflush your eyes. -Try to avoid getting tap water or bath water in the eye for 48 hours. Do not swim for 48 hours. -Caution about driving: We always recommend having a cdl a driver on the day you get an injection. If you do not feel comfortable driving after your procedure, please allow your vision to recover or make alternate arrangements. - Here are the Normal and Expected side effects: -Do not be surprised or worried if you have a few bloody tears after the injection. You may have a small blood spot on the white of your eye (subconjunctival hemorrhage) or the appearance of a small blister or bump where the injection was given. -You may notice your vision seems a bit hazy and you may see floaters. -All of these things should gradually become less noticeable over the next few days. -You may also have some mild irritation or a foreign body sensation for up to 24 hours. - Here are the Not Normal and Not Expected side effects: Call [phone] (Eye Clinic) DAY or NIGHT, HOLIDAY or WEEKEND if you experience any of the following: = Severe, increasing pain in the eye = Significant, dramatic vision loss = Redness on and around the eye that gets worse, not better = Severe light sensitivity Call 911 or go to the Emergency room immediately if you experience = Chest pain = Abdominal pain = Weakness or numbness on any part of your body = Slurred speech = Or any other symptoms of concern documented in this encounter Progress Notes Brooke Taylor - 07/01/2021 10:15 AM EDT ASSESSMENT: 1. Exudative age-related macular degeneration of both eyes with active choroidal neovascularization treating right eye Q4 weeks, and continue left eye Q 8 weeks. Today: 4-5 weeks Avastin OU MSO only. PLAN: Date for next injection on 07/24 is too soon. Please cancel future appointments and instead Please schedule the followin-5 weeks Avastin OD MSO only. 4-5 weeks DFE/OCT. Re-eval with planned Avastin OU. FV + MSO. DFE in procedure room OK. Lalit Willoughby MD documented in this encounter Plan of Treatment Upcoming Encounters Date Type Specialty Care Team Description 07/23/2022 Office Visit Ophthalmology Lalit Willoughby MD [facility] OPHTHALMOLOGY [place], [place] [address] (Wo rk) documented as of this encounter Procedures Procedure Name Priority Date/Time Associated Diagnosis Comme nts INTRAVITREAL Routine 07/01/2021 10:30 Exudative age-related Re sults for INJECTION AM EDT macular degeneration of this procedure PHARMACOLOGIC AGENT both eyes with active are in the - OS - LEFT EYE choroidal results neovascularization section. INTRAVITREAL Routine 07/01/2021 10:30 Exudative age-related Re sults for INJECTION AM EDT macular degeneration of this procedure PHARMACOLOGIC AGENT both eyes with active are in the - OD - RIGHT EYE choroidal results neovascularization section. documented in this encounter Results Intravitreal Injection Pharmacologic Agent - OS - Left Eye (07/01/2021 10:30 AM EDT) Anatomical Region Laterality Modality Other Specimen (Source) Anatomical Location Collection Method / Collectio n Time Received Time / Laterality Volume Narrative 07/01/2021 10:30 AM EDT Pre Operative Diagnosis: Age-related Exudative Macular Degenerati on with Choroidal Neovascularization Post Operative Diagnosis: Age-related Exudative Macular Degenerati on with Choroidal Neovascularization Procedure: Intravitreal injection of Christi stin 1.25 mg left eye Assist: Supervisor Garment Manufacturing Anesthesia: Topical Proparacaine and Top ical 4% Lidocaine Complications: None Procedure: The patient was taken to the minor treat ment suite where the patient was reidentified using name and birthdate as critical identifiers. The correct eye as the operative site was reidentifi ed by preplaced site donnie, and the consent form was actively reviewed by mauricio tracey credit assistant and the surgeon. The left eye was prepped including insti llation of Betadine 5% into the left cul de sac for 5 minutes, facial pr ep with ophthalmic Betadyie and placement of a lid speculum. The Surgeon performed hand washing preop eratively, used gloves, and wore a face mask or used no talking technique during the procedure, as did the surgical elastic knitter hand frame. After topical anesthesia of the injectio n site using multiple Q-tips soaked in 4% Lidocaine, Bevacizumab (Christi stin) 1.25 mg was injected with a 30 gauge needle directed toward the cent er of the vitreous cavity, a measured 4 mm posterior to the limbus at the 0430 o'clock meridian. The patient demonstrated a minimum of counti ng fingers vision post injection, and received a post injection drop of Be tadine OS. An optional patch OS was offered to the patient, and the oneil ent was asked to call the Eye Clinic or Eye Doctor sales promotion representative, should the y develop pain in the treated eye, increasing redness or a discharge from t he eye. Condition on Discharge: Stable. Lalit Willoughby MD OPHTHALMOLOGY SERVICES ORDER ROWENA Intravitreal Injection Pharmacologic Agent - OD - Right Eye (07/01/2021 10:30 AM EDT) Anatomical Region Laterality Modality Other Specimen (Source) Anatomical Location Collection Method / Collectio n Time Received Time / Laterality Volume Narrative 07/01/2021 10:30 AM EDT Pre Operative Diagnosis: Age-related Exudative Macular Degenerat ion with Choroidal neovascularization Post Operative Diagnosis: Age-related Exudative Macular Degenerat ion with Choroidal neovascularization Procedure: Intravitreal injection of Christi stin 1.25 mg right eye Assist: Supervisor Garment Manufacturing Anesthesia: Topical proparacaine and top ical 4% lidocaine Complications: None Procedure: The patient was taken to the minor treat ment suite where the patient was reidentified using name and birthdate as critical identifiers. The correct eye as the operative site was reidentifi ed by preplaced site donnie, and the consent form was actively reviewed by mauricio tracey credit assistant and the surgeon. The right eye was prepped including inst illation of Betadine 5% into the right cul de sac for 5 minutes, facial p rep with ophthalmic Betadine, placement of a lid speculum. The Surgeon performed hand washing preop eratively, used gloves, and wore a face mask or used no talking technique during the procedure, as did the surgical elastic knitter hand frame. After topical anesthesia of the injectio n site using multiple Q-tips soaked in Lidocaine, Bevacizumab (Avasti n) 1.25 mg was injected with a 30 gauge needle directed toward the center of the vitreous cavity, a measured 4 mm posterior to the limbus at the ??07 30 o'clock meridian. The patient demonstrated a minimum of counting finge rs vision post injection, and received a post injection drop of Betadi ne OD. An optional patch OD was offered to the patient, and the patient was asked to call the Eye Clinic or Eye Doctor sales promotion representative, should they devel op pain in the treated eye, increasing redness or a discharge from t he eye. Condition on Discharge: Stable. Lalit Willoughby MD OPHTHALMOLOGY SERVICES ORDER ROWENA documented in this encounter Visit Diagnoses Diagnosis Exudative age-related macular degenerati on of both eyes with active choroidal neovascularization documented in this encounter Administered Medications Inactive Administered Medications - up to 3 most recent administrations Medication Order MAR Action Action Date Dose Rate Site BEVACizumab (Avastin) Given 07/01/2021 11:00 AM EDT 1.25 mg Left Eye ophthalmic injection 1.25 mg 1.25 mg, Intravitreal, ONCE, 1 dose, On 07/01/21 at 1100, For ophthalmic use only. Syringe contains 0.1 mL of overfill , Routine BEVACizumab (Avastin) ophthalmic Given 07/01/2021 11:00 AM EDT 1 .25 mg Right Eye injection 1.25 mg 1.25 mg, Intravitreal, ONCE, 1 dose, On 07/01/21 at 1100, For ophthalmic use only. Syringe contains 0.1 mL of overfill , Routine documented in this encounter Care Teams Dipper And Baker Relationship Specialty Start Date End Date Caroline Greenberg APRN PCP - General Family Medicine 06/16/[address] [place] [address] documented as of this encounter
--- OUTSIDE RECORDS SUMMARY | 2022-06-08 01:23 | XMS_ITS | Encounter Summary ---
:1935 Author Organization [facility] Address [facility] [place] [address] Care Team Providers Name Role Phone Caroline Greenberg APRN Primary Care Provider Reason for Visit Reason Comments Procedure Encounter Details Date Type Department Care Team Description 10/17/2020 Procedure visit Ophthalmology at Lalit Willoughby Exudati ve age-related [facility] NMD macular degeneration of [facility] left eye with active Drive [address] [place] OPHTHALMOLOGY neovasculariza tion [phone] DEPT [phone] [place] [address] Social History Tobacco Use Types Packs/Day Years Used Date Former Smoker Smokeless Tobacco: Former User Alcohol Use Standard Drinks/Week Comments Yes 0 (1 standard drink = 0.6 oz pure alcoho l) Sex Assigned at Date Recorded Not on file documented as of this encounter Patient Instructions Patient InstructionsAlexa Pinon - 10/17/2020 6:30 PM EST Today you had your left eye(s) injected with a medication called Avastin. [...] about driving: We always recommend having a truck driver helper on the day you get an injection. [...] Normal and Not Expected side effects: Call [phone] (Eye Clinic) DAY or NIGHT, HOLIDAY or [...] symptoms of concern documented in this encounter Plan of Treatment Upcoming Encounters Date Type Specialty Care Team Description 07/23/2022 Office Visit Ophthalmology Lalit Willoughby MD [facility] OPHTHALMOLOGY [place] [address] (Wo rk) documented as of this encounter Procedures Procedure Name Priority Date/Time Associated Diagnosis Comme nts INTRAVITREAL Routine 10/17/2020 12:33 Exudative age-related Re sults for INJECTION PM EST macular degeneration of this procedure PHARMACOLOGIC AGENT left eye with active are in the - OS - LEFT EYE choroidal results neovascularization section. documented in this encounter Results Intravitreal Injection Pharmacologic Agent - OS - Left Eye (10/17/2020 12:33 PM EST) Anatomical Region Laterality Modality Other Specimen (Source) Anatomical Location Collection Method / Collectio n Time Received Time / Laterality Volume Narrative 10/17/2020 12:33 PM EST Pre Operative Diagnosis: Age-related Exudative Macular Degenerati on with Choroidal Neovascularization Post Operative Diagnosis: Age-related Exudative Macular Degenerati on with Choroidal Neovascularization Procedure: Intravitreal injection of Christi stin 1.25 mg left eye Assist: Athlete Marketing Agent Anesthesia: Topical Proparacaine and Top ical 4% Lidocaine Complications: None Procedure: The patient was taken to the minor treat ment suite where the patient was reidentified using name and birthdate as critical identifiers. The correct eye as the operative site was reidentifi ed by preplaced site donnie, and the consent form was actively reviewed by mauricio tracey loan assistant and the surgeon. The left eye was prepped including insti llation of Betadine 5% into the left cul de sac for 5 minutes, facial pr ep with ophthalmic Betadyie and placement of a lid speculum. The Surgeon performed hand washing preop eratively, used gloves, and wore a face mask or used no talking technique during the procedure, as did the medical surgical tech. After topical anesthesia of the injectio n [...] call the Eye Clinic or Eye Doctor logistics operations manager, should the y develop pain in the treated eye, increasing redness or a discharge from t he eye. Condition on Discharge: Stable. Lalit Willoughby MD OPHTHALMOLOGY SERVICES ORDER ROWENA documented in this encounter Visit Diagnoses Diagnosis Exudative age-related macular degenerati on of left eye with active choroidal neovascularization documented in this encounter Care Teams Imaging Nurse Relationship Specialty Start Date End Date Caroline Greenberg, PET FEEDER PCP - General Family Medicine 06/16/[address] [place] [address] documented as of this encounter
--- OUTSIDE RECORDS SUMMARY | 2022-06-08 01:23 | XMS_ITS | Encounter Summary ---
:1935 Author Organization [facility] [place] [address] Care Team Providers Name Role Phone Caroline Greenberg APRN Primary Care Provider Reason for Visit Reason Comments Procedure Avastin #2/3 OU Macular Degeneration OU Encounter Details Date Type Department Care Team Description 10/27/2021 Procedure visit Ophthalmology at Lalit Willoughby Exudati ve age-related [facility] MD Leia macular degeneration of [facility] both eyes with active Drive [address] [place], [place] OPHTHALMOLOGY neovasculariza tion [address] DEPT [phone] [place] [address] Social History Tobacco Use Types Packs/Day Years Used Date Former Smoker Quit: 1966 Smokeless Tobacco: Former User Alcohol Use Standard Drinks/Week Comments Yes 0 (1 standard drink = 0.6 oz pure alcoho l) Sex Assigned at Date Recorded Not on file documented as of this encounter Patient Instructions Patient InstructionsSaira Lopez - 10/27/2021 1:15 PM EST Today you had your both eye(s) injected [...] about driving: We always recommend having a diesel truck driver on the day you get an [...] Normal and Not Expected side effects: Call [phone] (Eye Clinic) DAY or NIGHT, HOLIDAY or [...] concern documented in this encounter Progress Notes Lalit Willoughby MD - 10/27/2021 1:15 PM EST ASSESSMENT: 1. Exudative age-related macular degeneration of both eyes with active choroidal neovascularization Avastin OU #2/3 today PLAN: Follow up as scheduled 8 weeks Avastin OU #3/3 MSO only 8 weeks for Re-eval FV+MSO with DFE/OCT. DFE in procedure room OK. I, Bib Wong, have performed the documentation for this encounter in the presence of and actingas a scribe for Lalit Willoughby MD. I performed the services which were documented by the scribe, and I agree with the accuracy of the documentation in this encounter. documented in this encounter Plan of Treatment Upcoming Encounters Date Type Specialty Care Team Description 07/23/2022 Office Visit Ophthalmology Lalit Willoughby MD [facility] OPHTHALMOLOGY [place], [place] [address] (Wo rk) documented as of this encounter Procedures Procedure Name Priority Date/Time Associated Diagnosis Comme nts INTRAVITREAL Routine 10/27/2021 2:35 Exudative age-related Res ults for INJECTION PM EST macular degeneration of this procedure PHARMACOLOGIC AGENT both eyes with active are in the - OD - RIGHT EYE choroidal results neovascularization section. INTRAVITREAL Routine 10/27/2021 2:35 Exudative age-related Res ults for INJECTION PM EST macular degeneration of this procedure PHARMACOLOGIC AGENT both eyes with active are in the - OS - LEFT EYE choroidal results neovascularization section. documented in this encounter Results Intravitreal Injection Pharmacologic Agent - OD - Right Eye (10/27/2021 2:35 PM EST) Anatomical Region Laterality Modality Other Specimen (Source) Anatomical Location Collection Method / Collectio n Time Received Time / Laterality Volume Narrative 10/27/2021 2:35 PM EST Pre Operative Diagnosis: Age-related Exudative Macular Degenerat ion with Choroidal neovascularization Post Operative Diagnosis: Age-related Exudative Macular Degenerat ion with Choroidal neovascularization Procedure: Intravitreal injection of Christi stin 1.25 mg right eye Assist: Optimization Manager Anesthesia: Topical proparacaine and top ical 4% lidocaine Complications: None Procedure: The patient was taken to the minor treat ment suite where the patient was reidentified using name and birthdate as critical identifiers. The correct eye as the operative site was reidentifi ed by preplaced site donnie, and the consent form was actively reviewed by mauricio tracey personal injury legal assistant and the surgeon. The right eye was prepped including inst illation of Betadine 5% into the right cul de sac for 5 minutes, facial p rep with ophthalmic Betadine, placement of a lid speculum. The Surgeon performed hand washing preop eratively, used gloves, and wore a face mask or used no talking technique during the procedure, as did the surgical manager. After topical anesthesia of the injectio n [...] call the Eye Clinic or Eye Doctor rack production worker, should they devel op pain in the treated eye, increasing redness or a discharge from t he eye. Condition on Discharge: Stable. Lalit Willoughby MD OPHTHALMOLOGY SERVICES ORDER ROWENA Intravitreal Injection Pharmacologic Agent - OS - Left Eye (10/27/2021 2:35 PM EST) Anatomical Region Laterality Modality Other Specimen (Source) Anatomical Location Collection Method / Collectio n Time Received Time / Laterality Volume Narrative 10/27/2021 2:35 PM EST Pre Operative Diagnosis: Age-related Exudative Macular Degenerati on with Choroidal Neovascularization Post Operative Diagnosis: Age-related Exudative Macular Degenerati on with Choroidal Neovascularization Procedure: Intravitreal injection of Christi stin 1.25 mg left eye Assist: Optimization Manager Anesthesia: Topical Proparacaine and Top ical 4% Lidocaine Complications: None Procedure: The patient was taken to the minor treat ment suite where the patient was reidentified using name and birthdate as critical identifiers. The correct eye as the operative site was reidentifi ed by preplaced site donnie, and the consent form was actively reviewed by mauricio tracey personal injury legal assistant and the surgeon. The left eye was prepped including insti llation of Betadine 5% into the left cul de sac for 5 minutes, facial pr ep with ophthalmic Betadyie and placement of a lid speculum. The Surgeon performed hand washing preop eratively, used gloves, and wore a face mask or used no talking technique during the procedure, as did the surgical manager. After topical anesthesia of the injectio n [...] call the Eye Clinic or Eye Doctor rack production worker, should the y develop pain in the treated eye, increasing redness or a discharge from t he eye. Condition on Discharge: Stable. Lalit Willoughby MD OPHTHALMOLOGY SERVICES ORDER ROWENA documented in this encounter Visit Diagnoses Diagnosis Exudative age-related macular degenerati on of both eyes with active choroidal neovascularization documented in this encounter Care Teams Regulatory Compliance Coordinator Relationship Specialty Start Date End Date Caroline Greenberg, DERIAN PCP - General Family Medicine 06/16/[address] [place] [address] documented as of this encounter
--- OUTSIDE RECORDS SUMMARY | 2022-06-08 01:23 | XMS_ITS | Encounter Summary ---
:1935 Author Organization [facility] Address [address] [place] [address] Care Team Providers Name Role Phone Dionicio Caroline Collin MENARD Primary Care Provider Reason for Visit Reason Comments Procedure Encounter Details Date Type Department Care Team Description 09/17/2020 Procedure visit Ophthalmology at Lalit Willoughby Exudati ve age-related [facility] NMD macular degeneration of [facility] left eye with active [address] [place] OPHTHALMOLOGY neovasculariza tion [id number] DEPT [phone] [place] [address] Social History Tobacco Use Types Packs/Day Years Used Date Former Smoker Smokeless Tobacco: Former User Sex Assigned at Date Recorded Not on file documented as of this encounter Patient Instructions Patient InstructionsAlexa Pinon - 09/17/2020 9:15 AM EST Today you had your left eye(s) [...] driving: We always recommend having a cdl company driver on the day you get an [...] Normal and Not Expected side effects: Call [phone] (Eye Clinic) DAY or NIGHT, HOLIDAY or [...] encounter Progress Notes Lalit Willoughby MD - 09/17/2020 9:15 AM EST ASSESSMENT: 1. Exudative age-related macular degeneration of left eye with active choroidal neovascularization Avastin #3/3 OS for new Wet AMD PLAN: Follow up as scheduled: 4-6 weeks for Re-eval FV+MSO with DFE/OCT, Planned Avastin OS Lalit Willoughby MD documented in this encounter Plan of Treatment Upcoming Encounters Date Type Specialty Care Team Description 07/23/2022 Office Visit Ophthalmology Lalit Willoughby MD [facility] OPHTHALMOLOGY [place], [place] [address] (Wo rk) documented as of this encounter Procedures Procedure Name Priority Date/Time Associated Diagnosis Comme nts INTRAVITREAL Routine 09/17/2020 9:52 Exudative age-related Res ults for INJECTION AM EST macular degeneration of this procedure PHARMACOLOGIC AGENT left eye with active are in the - OS - LEFT EYE choroidal results neovascularization section. documented in this encounter Results Intravitreal Injection Pharmacologic Agent - OS - Left Eye (09/17/2020 9:52 AM EST) Anatomical Region Laterality Modality Other Specimen (Source) Anatomical Location Collection Method / Collectio n Time Received Time / Laterality Volume Narrative 09/17/2020 9:52 AM EST Pre Operative Diagnosis: Age-related Exudative Macular Degenerati on with Choroidal Neovascularization Post Operative Diagnosis: Age-related Exudative Macular Degenerati on with Choroidal Neovascularization Procedure: Intravitreal injection of Christi stin 1.25 mg left eye Assist: Online Journalist Anesthesia: Topical Proparacaine and Top ical 4% Lidocaine Complications: None Procedure: The patient was taken to the minor treat ment suite where the patient was reidentified using name and birthdate as critical identifiers. The correct eye as the operative site was reidentifi ed by preplaced site donnie, and the consent form was actively reviewed by mauricio tracey assistant reading teacher and the surgeon. The left eye was prepped including insti llation of Betadine 5% into the left cul de sac for 5 minutes, facial pr ep with ophthalmic Betadyie and placement of a lid speculum. The Surgeon performed hand washing preop eratively, used gloves, and wore a face mask or used no talking technique during the procedure, as did the evaluation assistant. After topical anesthesia of the injectio n [...] call the Eye Clinic or Eye Doctor account resolution expert, should the y develop pain in the [...] Action Action Date Dose Rate Site BEVACizumab (AVASTIN) Given 09/17/2020 10:15 AM EST 1.25 mg Left Eye ophthalmic injection 1.25 mg 1.25 mg, Intravitreal, ONCE, 1 dose, On 09/17/20 at 1015, For ophthalmic use only. Syringe contains 0.1 mL of overfill , Routine documented in this encounter Care Teams Awnings Mechanic Relationship Specialty Start Date End Date Caroline Greenberg, DERIAN PCP - General Family Medicine 06/16/[address] [place] [address] documented as of this encounter
--- OUTSIDE RECORDS SUMMARY | 2022-06-08 01:23 | XMS_ITS | Encounter Summary ---
:1935 Author Organization [facility] [place] [address] Care Team Providers Name Role Phone Caroline Greenberg Collin MENARD Primary Care Provider Reason for Visit Reason Onset Date Comments Eye Problem 04/03/2021 Calling with selam e reading difficulty Encounter Details Date Type Department Care Team Description 04/03/2021 Telephone Ophthalmology at [facility] Lalit Bhagat, Eye Problem (Calling [facility] Alexia marquez [place] [address] [facility] difficulty) [phone] OPHTHALMOLOGY DE PT [place], [place] [address] Social History Tobacco Use Types Packs/Day Years Used Date Former Smoker Smokeless Tobacco: Former User Alcohol Use Standard Drinks/Week Comments Yes 0 (1 standard drink = 0.6 oz pure alcoho l) Sex Assigned at Date Recorded Not on file documented as of this encounter Miscellaneous Notes Telephone Encounter - Astrid Matthews COT - 04/04/2021 4:50 PM EDT Patient advised per NB review. Okay to keep scheduled appt as is. Telephone Encounter - Astrid Matthews COT - 04/03/2021 2:30 PM EDT Patient reporting general foggy vision RE and was told by NB to report any RE changes. She denies any smudge or central area of concern like LE, more a foggy feeling at distance and near. Discussed possibility of cataract progression vs AMD changes. She has pending appt in 2 1/2 weeks with NB and comfortable just keeping that appointment. She will report these changes to drug abuse technician at start of exam and will forward this to NB for FYI as well. Telephone Encounter - Astrid Matthews COT - 04/03/2021 9:24 AM EDT Patient states via VM; sees Dr. Willoughby for injections and was advised to call with any changes. Has pending appt 04/17 but is aware of increased difficulty reading. This is not an emergency Lalit Willoughby MD at 02/24/2021 ??1:00 PM Author Type: Physician Status: Signed Controls Engineer: Lalit Willoughby MD (Physician) ASSESSMENT: 1. Exudative age-related macular degeneration of left eye with active choroidal neovascularization 2. 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 Combined forms of age-related cataract of both eyes ?? New wet AMD noted June 2020 left eye. Treatments extended to 6-8 weeks. ?? Visual Acuity ?? Visual Acuity (Snellen - Linear) ?? Right Left ?? Dist cc 20/40 +1 20/50 +1 ?? Dist ph cc NI NI ?? Near cc 20/20-3 20/25-3 ?? Correction: Glasses ? OD: Moderate/advanced dry AMD OS: collapsed PED OU lens status: 1-2+ NS, 2+ Cortical ?? OCT: Stable. OD with trace IRF, OS dry PED ? PLAN: ?? Extend treatments to 8 weeks ?? Avastin OS #1/3 Today ?? Please schedule the followin weeks Avastin OS #2/3 MSO only 8 weeks Avastin OS #3/3 MSO only 8 weeks for Re-eval FV+MSO with DFE/OCT ?? Sooner PRN ? I, Stefany Mccain, have performed the documentation for this encounter in the presence of and actingas a scribe for Lalit Willoughby MD. I performed the services which were documented by the scribe, and I agree with the accuracy of the documentation in this encounter. ?? Lalit Willoughby MD ?? documented in this encounter Plan of Treatment Upcoming Encounters Date Type Specialty Care Team Description 07/23/2022 Office Visit Ophthalmology Lalit Willoughby MD [facility] [address] DR OPHTHALMOLOGY [place], [place] [address] (Wo rk) documented as of this encounter Visit Diagnoses Not on filedocumented in this encounter Care Teams V Block Saw Operator Relationship Specialty Start Date End Date Caroline Greenberg APRN PCP - General Family Medicine 06/16/[address] [place] [address] documented as of this encounter
--- OUTSIDE RECORDS SUMMARY | 2022-06-08 01:23 | XMS_ITS | Encounter Summary ---
:1935 Author Organization [facility] [place] [address] Care Team Providers Name Role Phone Caroline Greenberg APRN Primary Care Provider Reason for Visit Reason Comments Macular Degeneration Encounter Details Date Type Department Care Team Description 04/17/2021 Procedure visit Ophthalmology at Lalit Willoughby Exudati ve age-related [facility] NMD macular degeneration of [facility] left eye with active Drive [address] [address] [place] OPHTHALMOLOGY neovasculariza tion [id number] DEPT [phone] [place] [id number] Social History Tobacco Use Types Packs/Day Years Used Date Former Smoker Smokeless Tobacco: Former User Alcohol Use Standard Drinks/Week Comments Yes 0 (1 standard drink = 0.6 oz pure alcoho l) Sex Assigned at Date Recorded Not on file documented as of this encounter Patient Instructions Patient InstructionsBrooke Taylor - 04/17/2021 2:45 PM EDT Today you had your left eye(s) injected [...] driving: We always recommend having a diesel pile driver operator on the day you get an injection. [...] Normal and Not Expected side effects: Call [phone] (Eye Clinic) DAY or NIGHT, HOLIDAY or [...] encounter Progress Notes Lalit Willoughby MD - 04/17/2021 2:45 PM EDT ASSESSMENT: 1. Exudative age-related macular degeneration of left eye with active choroidal neovascularization 8 weeks Avastin OS #2/3 MSO only OCT shows new Wet AMD OD developing. PLAN: Will start treating right eye Q4 weeks, and continue left eye Q 8 weeks. Cancel future appointments and instead Please schedule the following: Within 2 weeks for MSO only Avastin OD # 1. 4-5 weeks Avastin OD MSO only 4-5 weeks Avastin OU (Both eyes) MSO only. 4-5 weeks Avastin OD MSO only. 4-5 weeks DFE/OCT. Re-eval with planned Avastin OU. FV + MSO. Sooner PRN Lalit Willoughby MD documented in this encounter Plan of Treatment Upcoming Encounters Date Type Specialty Care Team Description 07/23/2022 Office Visit Ophthalmology Lalit Willoughby MD [facility] [place], [place] [address] (Wo rk) documented as of this encounter Procedures Procedure Name Priority Date/Time Associated Diagnosis Comme nts OCT RETINA - OU - Routine 04/17/2021 4:08 Exudative age-relate d Results for BOTH EYES PM EDT macular degeneration of this procedure left eye with active are in the choroidal results neovascularization section. INTRAVITREAL Routine 04/17/2021 4:04 Exudative age-related Res ults for INJECTION PM EDT macular degeneration of this procedure PHARMACOLOGIC AGENT left eye with active are in the - OS - LEFT EYE choroidal results neovascularization section. documented in this encounter Results OCT Retina - OU - Both Eyes (04/17/2021 4:08 PM EDT) Anatomical Region Laterality Modality Other Specimen (Source) Anatomical Location Collection Method / Collectio n Time Received Time / Laterality Volume Narrative 04/17/2021 4:08 PM EDT Right Eye Quality was good. Scan locations include d subfoveal. Progression has worsened. Findings include normal observ ations, abnormal foveal contour, pigment epithelial detachment. Left Eye Quality was good. Scan locations include d subfoveal. Progression has been stable. Findings include normal observat ions, abnormal foveal contour, subretinal scarring. Notes OD: drusen, CNV developing with IRF and PED OS: collapsed PED Lalit Willoughby MD OPHTHALMOLOGY SERVICES ORDER ROWENA Intravitreal Injection Pharmacologic Agent - OS - Left Eye (04/17/2021 4:04 PM EDT) Anatomical Region Laterality Modality Other Specimen (Source) Anatomical Location Collection Method / Collectio n Time Received Time / Laterality Volume Narrative 04/17/2021 4:04 PM EDT Pre Operative Diagnosis: Age-related Exudative Macular Degenerati on with Choroidal Neovascularization Post Operative Diagnosis: Age-related Exudative Macular Degenerati on with Choroidal Neovascularization Procedure: Intravitreal injection of Christi stin 1.25 mg left eye Assist: Chief Business Development Officer Anesthesia: Topical Proparacaine and Top ical 4% Lidocaine Complications: None Procedure: The patient was taken to the minor treat ment suite where the patient was reidentified using name and birthdate as critical identifiers. The correct eye as the operative site was reidentifi ed by preplaced site donnie, and the consent form was actively reviewed by mauricio tracey assistant director of plant operations and the surgeon. The left eye was prepped including insti llation of Betadine 5% into the left cul de sac for 5 minutes, facial pr ep with ophthalmic Betadyie and placement of a lid speculum. The Surgeon performed hand washing preop eratively, used gloves, and wore a face mask or used no talking technique during the procedure, as did the ophthalmology surgical technician. After topical anesthesia of the injectio n [...] call the Eye Clinic or Eye Doctor contract negotiation specialist, should the y develop pain in the [...] Date Dose Rate Site BEVACizumab (Avastin) Given 04/17/2021 4:30 PM EDT 1.25 mg Left Eye ophthalmic injection 1.25 mg 1.25 mg, Intravitreal, ONCE, 1 dose, On Sat04/17/21 at 1630, For ophthalmic use only. Syringe contains 0.1 mL of overfill , Routine documented in this encounter Care Teams Business Analyst Sales Operations Relationship Specialty Start Date End Date Caroline Greenberg, WOOD HEEL FLAP RUBBER PCP - General Family Medicine 06/16/[address] [facility] [address] [place] [address] documented as of this encounter
--- OUTSIDE RECORDS SUMMARY | 2022-06-08 01:23 | XMS_ITS | Encounter Summary ---
:1935 Author Organization [facility] [place] [address] Care Team Providers Name Role Phone Unknown Primary Care Provider Unavailable Encounter Details Date Type Department Care Team Description 04/11/2020 Hospital [facility] [place] [address] Social History Tobacco Use Types Packs/Day Years Used Date Former Smoker Sex Assigned at Date Recorded Not on file documented as of this encounter Medications at Time of Discharge Medication Sig Dispensed Refills Start Date End Date oxygen-air delivery 0 09/12/2013 systems (HORIZON NASAL CPAP SYSTEM MISC) levothyroxine (SYNTHROID) Take 50 mcg by 0 50 mcg tablet mouth daily. warfarin (COUMADIN) 5 mg Take 5 mg by mouth 0 tablet daily. 4 days weekly patient takes 1 tablet; all other days of the week patient takes 2.5 mg. polyethylene glycol 0 11/14/2010 (MIRALAX) 17 gram packet ACETAMINOPHEN (TYLENOL 0 11/14/2010 ORAL) LOSARTAN POTASSIUM Take 100 mg by 0 (LOSARTAN ORAL) mouth. BUPROPION HCL (WELLBUTRIN Take 100 mg by 0 06/16/2020 ORAL) mouth. AMLODIPINE BESYLATE Take 2.5 mg by 0 0 06/16/2020 (AMLODIPINE ORAL) mouth. documented as of this encounter Plan of Treatment Upcoming Encounters Date Type Specialty Care Team Description 07/23/2022 Office Visit Ophthalmology Lalit Willoughby MD [facility] O[place]THALMOLOGY [place], [place] [address] (Wo rk) documented as of this encounter Procedures Procedure Name Priority Date/Time Associated Diagnosis Comme nts SURGICAL PATHOLOGY Routine 04/11/2020 1:10 PM Res ults for this REPORT EDT procedure are i n the results section. documented in this encounter Results Surgical Pathology Report (04/11/2020 1:10 PM EDT) Component Value Ref Test Analysis Performed At [facility] gist Range Method Time Signature Surgical [id number] ? Location: [facility] Pathology [place] Report The signing pathologist has (i) examined the relevant preparation(s) for the [facility] specimen(s) and (ii) rendered or confirmed the diagnosis(es) . HOSPITAL LABORATORY . ?Surgic al Pathology DIAGNOSIS CORRECTED REPORT (See Discussion) A. Right shoulder, skin punch biopsy: - ??Seborrheic keratosis B. Left shoulder, skin punch biopsy: - Verrucoid epidermal hyperp lasia, ?? consistent with portion of seborrheic keratosis (see discussion) Electronically signed by: ??Dayami Koo MD Verified: ??04/13/2020 ?Dermatopathologist Performed at: ??-[facility] Dept. of [place]ology, [place], [place] DISCUSSION Should the biopsy represents small component of larger or clinically heterogeneous lesion, then the diagnosis may not be extrapolated to the l esions in its entirety. ??Clinical correl ation is recommended to determine if this is digital media representative of the lesion. Correction Note: ??Opened in error. ??T here are no other changes to the text of this report. _ ADDITIONAL STUDIES B. Multiple step-leveled sections were reviewed. SPECIMEN(S) SUBMITTED A - right shoulder, 2 mm punch (1) B - left shoulder, 2 mm punch (1) CLINICAL INFORMATION A - skin lesion increasing in size B - Skin lesion becoming darker Both appear to be seborrheic keratosis Referring Identifier: ?(not provided) SPECIMEN PROCESSING A - Labeled/Fixative: Right shoulder, formalin. Quantity/Size: ??Single, 0.4 x 0.3 cm. Tissue Description: Punch bi opsy of laurent-white skin and subcutaneous tissue, excised to 0.4 cm. There is an ecce ntric 0.3 x 0.2 x 0.2 cm coarsely lobulated, granular nodule. Sections/Processing: Bisected and entirely submitted in 1 cassette labeled A1. B - Labeled/Fixative: Left shoulder, formalin. Quantity/Size: ??Single, 0.3 cm diameter. Tissue Description: Punch bi opsy of laurent-jimenez skin and subcutaneous tissue, excised to 0.2 cm. Sections/Processing: Submitted en toto in 1 cassette labeled B1. ??shb Specimen (Source) Anatomical Collection Method Collection Time Re ceived Time Location / / Volume Laterality 04/11/2020 1:10 PM EDT Case Perez DO PATHOLOGY/CYTOLOGY ORDERABL ES Performing Organization Address City/State/[place] [address] documented in this encounter Visit Diagnoses Not on filedocumented in this encounter Care Teams Carbonator Relationship Specialty Start Date End Date Unknown PCP - General 10/03/10 06/15/20 None documented as of this encounter
--- OUTSIDE RECORDS SUMMARY | 2022-06-08 01:23 | XMS_ITS | Encounter Summary ---
:1935 Author Organization [facility] Address [address] [place] [address] Care Team Providers Name Role Phone Astrid Glover MD Primary Care Provider Encounter Details Date Type Department Care Team Description 10/19/2013 Results Only [facility] Case Florez , Laboratory Services - [address] [place] [address] [place], [place] [address] [phone] Social History Tobacco Use Types Packs/Day Years Used Date Never Assessed Sex Assigned at Date Recorded Not on file documented as of this encounter Plan of Treatment Not on filedocumented as of this encounter Procedures Procedure Name Priority Date/Time Associated Diagnosis Comme [facility] SURGICAL PATHOLOGY Routine 10/19/2013 9:15 EST Re sults for this procedure are i n the results section. documented in this encounter Results SURGICAL PATHOLOGY (10/19/2013 9:15 EST) Pathology Report: SURGICAL PATHOLOGY REPORT NIRALI NOLASCO Reports generated via electronic interface contain cody ginal data; LAB however they are lacking the format of the original re port. Caution should be taken when reading/interpreting unfo rmatted reports. Name: ? FDEERICO VICTOR ? Accession #: ? [id number] ? : ? 1935 (Age: 78) ??F ? Collect Date: ? 10/19/2013 ? Location: ? [facility] ? Receive Date: ? 013 ? Provider: CASE FLOREZ DO Copy to: ASTRID GLOVER MD ? Final Pathologic Diagnosis: SKIN OF CHEEK, LEFT, EXCISION: - Hypertrophic actinic keratosis. ??See comment. Comment: The features are those of a hypertrophic actinic kerat osis. ??The lesion is encompassed by the excision specimen. ??Also present w ithin the excision are smaller actinic keratoses, some of which extend to margins. ??(Dr. Corral)/critical [facility] hospital Document reviewed and electronically signed by: ADA CORRAL MD Report ??Date: 10/22/2013 12:54 By the signature above, the attending physician certif ies that he/she has personally conducted a gross and/or microscopic examin ation of the described specimens and rendered or confirmed the above diagnosi s. Specimen(s) Received: Lesion left cheek Clinical History: Skin lesion left cheek, gradual increase in size Gross Description: ? Received in formalin labelled with proper patient identification (initials H, C) and lesion left cheek is an unoriented elliptical excision of jimenez-laurent, focally laurent-white skin (1.0 x 0.6 cm and is excised t o a depth of 0.3 cm). There is a slightly eccentri c ovoid white and granular, focally jimenez and crusted papule that measures 0.6 x 0 .4 x 0.1 cm. The margins are inked. The specimen is serially sectioned and entirely submitted as 1 central sections and 2 tips, reverse en face. Gricel Dye 10/21/2013 10:05 AM End of Report Specimen Performing Organization Address City/State/ZIP Code Phon e Number [facility] [address] [place] [address] [facility] [address] [place] [address] documented in this encounter Visit Diagnoses Not on filedocumented in this encounter Care Teams Net Mvc Developer Relationship Specialty Start Date End Date Astrid Glover MD PCP - General 01/23/[address] [place] [address] [place] [address] documented as of this encounter
--- OUTSIDE RECORDS SUMMARY | 2022-06-08 01:23 | XMS_ITS | Encounter Summary ---
:1935 Author Organization [facility] [address] Care Team Providers Name Role Phone Gerrychelly Caroline Collin MENARD Primary Care Provider Reason for Visit Reason Comments Macular Degeneration Encounter Details Date Type Department Care Team Description 02/24/2021 Office Visit Ophthalmology at [facility] C Lalit Willoughby, Exudative age-related macula r degeneration of left eye with active choroidal neovascularization; [facility] Advanced nonexudative age-related macula r degeneration of right eye with subfoveal involvement; [facility] Combined forms of age-relate [place] [address] CENTER [phone] OPHTHALMOLOGY DEPT [place], [place] [address] Social History Tobacco Use Types Packs/Day Years Used Date Former Smoker Smokeless Tobacco: Former User Alcohol Use Standard Drinks/Week Comments Yes 0 (1 standard drink = 0.6 oz pure alcoho l) Sex Assigned at Date Recorded Not on file documented as of this encounter Progress Notes Lalit Willoughby MD - 02/24/2021 1:00 PM EDT ASSESSMENT: 1. Exudative age-related macular degeneration of left eye with active choroidal neovascularization 2. 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 Combined forms of age-related cataract of both eyes New wet AMD noted June 2020 left eye. Treatments extended to 6-8 weeks. Visual Acuity Visual Acuity (Snellen - Linear) Right Left Dist cc 20/40 +1 20/50 +1 Dist ph cc NI NI Near cc 20/20-3 20/25-3 Correction: Glasses OD: Moderate/advanced dry AMD OS: collapsed PED OU lens status: 1-2+ NS, 2+ Cortical OCT: Stable. OD with trace IRF, OS dry PED PLAN: Extend treatments to 8 weeks Avastin OS #1/3 Today Please schedule the followin weeks Avastin OS #2/3 MSO only 8 weeks Avastin OS #3/3 MSO only 8 weeks for Re-eval FV+MSO with DFE/OCT Sooner PRN I, Stefany Mccain, have performed the documentation for this encounter in the presence of and actingas a scribe for Lalit Willoughby MD. I performed the services which were documented by the scribe, and I agree with the accuracy of the documentation in this encounter. Lalit Willoughby MD documented in this encounter Plan of Treatment Upcoming Encounters Date Type Specialty Care Team Description 07/23/2022 Office Visit Ophthalmology Lalit Willoughby MD [facility] [address] OPHTHALMOLOGY [place], [place] [address] (Wo rk) documented as of this encounter Procedures Procedure Name Priority Date/Time Associated Diagnosis Comme nts OCT RETINA - OU - Routine 02/24/2021 2:25 PM Exudative age-rel ated Results for this BOTH EYES EDT macular degeneration procedu re are in of left eye with the results active choroidal section. 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 Scan locations include d subfoveal. Progression has been stable. Findings include normal observat ions, abnormal foveal contour. Left Eye Quality was good. Scan locations include d subfoveal. Progression has been stable. Findings include normal observat ions, abnormal foveal contour, subretinal scarring. Notes OD: drusen, trace IRF OS: collapsed PED Lalit Willoughby MD OPHTHALMOLOGY SERVICES ORDER ROWENA documented in this encounter Visit Diagnoses Diagnosis Exudative age-related macular degenerati on of left eye with active choroidal neovascularization Advanced nonexudative age-related macula r degeneration of right eye with subfoveal involvement Combined forms of age-related cataract o f both eyes Other and combined forms of senile catar act documented in this encounter Care Teams Slag Wheeler Relationship Specialty Start Date End Date Caroline Greenberg APRN PCP - General Family Medicine 06/16/[address] [place] [address] documented as of this encounter
--- OUTSIDE RECORDS SUMMARY | 2022-06-08 01:23 | XMS_ITS | Encounter Summary ---
:1935 [place] [address] Care Team Providers Name Role Phone Caroline Greenberg Collin MENARD Primary Care Provider Reason for Visit Reason Comments Macular Degeneration ARMD + CNV Encounter Details Date Type Department Care Team Description 02/12/2022 Office Visit Ophthalmology at [facility] C Lalit Willoughby Exudative age-related [facility] MD Leia macular degeneration of [facility] both eyes with active [place], [place] [address] [phone] OPHTHALMOLOGY neovascularization [phone] [place] [address] Social History Tobacco Use Types Packs/Day Years Used Date Former Smoker Quit: 1966 Smokeless Tobacco: Former User Alcohol Use Standard Drinks/Week Comments Yes 0 (1 standard drink = 0.6 oz pure alcoho l) Sex Assigned at Date Recorded Not on file documented as of this encounter Progress Notes Lalit Willoughby MD - 02/12/2022 1:00 PM EDT ASSESSMENT: 1. Exudative age-related macular degeneration of both eyes with active choroidal neovascularization New wet AMD noted June 2020 left eye, April 2021 Right eye Currently Q8 week OU. Visual Acuity Visual Acuity (Snellen - Linear) Right Left Dist cc 20/40 -2 20/40 +2 Near cc 20/30 20/30 Correction: Glasses OU lens status: 2+ NS, 2+ Cortical OCT: Stable. OD with CNV, OS dry PED PLAN: Doing well OU with now stable wet AMD OU. Ok to see local optom or Dr. Wells for MRX. Avastin OU #1/3 Today 8 weeks Avastin OU #2/3 MSO only 8 weeks Avastin OU #3/3 MSO only 8 weeks for Re-eval FV+MSO with DFE/OCT. DFE in procedure room OK. documented in this encounter Plan of Treatment Upcoming Encounters Date Type Specialty Care Team Description 07/23/2022 Office Visit Ophthalmology Lalit Willoughby MD [facility] DR OPHTHALMOLOGY [place], [place] [address] (Wo rk) documented as of this encounter Visit Diagnoses Diagnosis Exudative age-related macular degenerati on of both eyes with active choroidal neovascularization documented in this encounter Care Teams Test Tube Maker Relationship Specialty Start Date End Date Caroline Greenberg APRN PCP - General Family Medicine 06/16/[address] [place] [address] documented as of this encounter
--- OUTSIDE RECORDS SUMMARY | 2022-06-08 01:23 | XMS_ITS | Encounter Summary ---
:1935 Author Organization [facility] Address [address] [place] [address] Care Team Providers Name Role Phone Unavailable Primary Care Provider Unavailable Encounter Details Date Type Department Care Team Description 06/27/2007 Results Only [facility] - Kelly Florez, Chr istopher, conversion DO [address] [place], [place] [id number] [place] [id number] (Wo rk) Social History Tobacco Use Types Packs/Day Years Used Date Never Assessed Sex Assigned at Date Recorded Not on file documented as of this encounter Plan of Treatment Not on filedocumented as of this encounter Procedures Procedure Name Priority Date/Time Associated Diagnosis Comme nts SURGICAL PATHOLOGY Routine 06/27/2007 0:00 EDT Re sults for this procedure are i n the results section. documented in this encounter Results SURGICAL PATHOLOGY (06/27/2007 0:00 EDT) Pathology Report: SURGICAL PATHOLOGY REPORT [facility] Reports generated via electronic interface contain cody ginal data; LAB however they are lacking the format of the original re port. Caution should be taken when reading/interpreting unfo rmatted reports. Name: ? FEDERICO VICTOR TTE ? Accession #: ? [id number] ? : ? 1935 (Age: 72) ??F ? Collect Date: ? 06/27/2007 ? Location: ? [facility] ? Receive Date: ? 007 ? Provider: EVERT FLOREZ DO Copy to: PETER GLOVER MD ? Final Pathologic Diagnosis: ? Skin of forehead, excision: - Melanocytic nevus, intradermal type. Document reviewed and electronically signed by: Kirby Mccann MD Report ??Date: 07/02/2007 17:24 By the signature above, the attending physician certif ies that he/she has personally conducted a gross and/or microscopic examin ation of the described specimens and rendered or confirmed the above diagnosi s. Specimen(s) Received: ? Skin lesion forehead Clinical History: ? Skin lesion R forehead Gross Description: ? Received in formalin labelled Kayleigh and skin lesion right forehead is a 0.9 x 0.5 cm ellipse of jimenez skin with tissue to a depth of 0.2 cm. ??On the epidermal surface is a 0.4 c m in diameter pale jimenez smooth-surfaced nodule. ??The resection surface is inked a nd the specimen is bisected and submitted in toto in one cassette. ??(Dr. Raygoza)/[facility] End of Report Specimen Performing Organization Address City/State/ZIP Code Phon e Number [facility] [address] [place] [address] SERVICES [facility] [address] [place] [address] documented in this encounter Visit Diagnoses Not on filedocumented in this encounter
--- OUTSIDE RECORDS SUMMARY | 2022-06-08 01:23 | XMS_ITS | Encounter Summary ---
:1935 Author Organization [facility] [place] [address] Care Team Providers Name Role Phone Caroline Greenberg DERIAN Primary Care Provider Reason for Visit Reason Onset Date Comments Triage 05/18/2022 Encounter Details Date Type Department Care Team Description 05/18/2022 Telephone Public Health at [facility] C Holly Garcia [place] [address] Social History Tobacco Use Types Packs/Day Years Used Date Former Smoker Quit: 1966 Smokeless Tobacco: Former User Alcohol Use Standard Drinks/Week Comments Yes 0 (1 standard drink = 0.6 oz pure alcoho l) Sex Assigned at Date Recorded Not on file documented as of this encounter Miscellaneous Notes Telephone Encounter - Holly Garcia RN - 05/18/2022 8:03 AM EDT Pt called regarding Covid-19 Exposure yesterday. She is asymptomatic today. Counseling provided thatshe should keep today's appt at [facility] [place] [place] Ophthalmology. Symptoms of Covid-19 reviewed, with pt teach back of si/sx. Pt verbalizes understanding to arrange Covid-19 testing and call her PCP if sx develop. documented in this encounter Plan of Treatment Upcoming Encounters Date Type Specialty Care Team Description 07/23/2022 Office Visit Ophthalmology Lalit Willoughby MD [facility] DR OPHTHALMOLOGY DE [place], [place] [address] (Wo rk) documented as of this encounter Visit Diagnoses Not on filedocumented in this encounter Care Teams Cob Sawyer Relationship Specialty Start Date End Date Caroline Greenberg APRN PCP - General Family Medicine 06/16/[address] [place] [address] documented as of this encounter
--- OUTSIDE RECORDS SUMMARY | 2022-06-08 01:23 | XMS_ITS | Encounter Summary ---
:1935 Author Organization [facility] [place] [address] Care Team Providers Name Role Phone Caroline Greenberg APRN Primary Care Provider Encounter Details Date Type Department Care Team Description 02/12/2022 Procedure visit Ophthalmology at Lalit Willoughby Exudati ve age-related [facility] MD Leia macular degeneration of [facility] MEDICAL both eyes with active [address] [place], [place] OPHTHALMOLOGY neovasculariza tion [phone] DEPT [phone] [place] [address] Social History Tobacco Use Types Packs/Day Years Used Date Former Smoker Quit: 1966 Smokeless Tobacco: Former User Alcohol Use Standard Drinks/Week Comments Yes 0 (1 standard drink = 0.6 oz pure alcoho l) Sex Assigned at Date Recorded Not on file documented as of this encounter Patient Instructions Patient InstructionsSe Keene COA - 02/12/2022 1:47 PM EDT Today you had your both eye(s) [...] about driving: We always recommend having a lyft driver on the day you get an [...] Normal and Not Expected side effects: Call [phone] (Eye Clinic) DAY or NIGHT, HOLIDAY or [...] Office Visit Ophthalmology Lalit Willoughby MD [facility] OPHTHALMOLOGY [place] [address] (Wo rk) documented as of this encounter Procedures Procedure Name Priority Date/Time Associated Diagnosis Comme nts INTRAVITREAL Routine 02/12/2022 2:11 Exudative age-related Res ults for INJECTION PM EDT macular degeneration of this procedure PHARMACOLOGIC AGENT both eyes with active are in the AMB - OU - BOTH EYES choroidal results neovascularization section. documented in this encounter Results Intravitreal Injection of Pharmacologic Agent - OU - BOTH EYES (02/12/2022 2:11 PM EDT) Anatomical Region Laterality Modality Other Specimen (Source) Anatomical Location Collection Method / Collectio n Time Received Time / Laterality Volume Narrative 02/12/2022 2:11 PM EDT Pre Operative Diagnosis: Age-related Exudative Macular Degenerati on with Choroidal Neovascularization Post Operative Diagnosis: Age-related Exudative Macular Degenerati on with Choroidal Neovascularization Procedure: Intravitreal injection of Christi stin 1.25 mg left eye Assist: Director Of User Experience Anesthesia: Topical Proparacaine and Top ical 4% Lidocaine Complications: None Procedure: The patient was taken to the minor treat ment suite where the patient was reidentified using name and birthdate as critical identifiers. The correct eye as the operative site was reidentifi ed by preplaced site donnie, and the consent form was actively reviewed by kyung assistant chief nursing officer and the surgeon. The left eye was prepped including insti llation of Betadine 5% into the left cul de sac for 5 minutes, facial pr ep with ophthalmic Betadyie and placement of a lid speculum. The Surgeon performed hand washing preop eratively, used gloves, and wore a face mask or used no talking technique during the procedure, as did the surgical rn. After topical anesthesia of the injectio n [...] call the Eye Clinic or Eye Doctor commissions specialist, should the y develop pain in the treated eye, increasing redness or a discharge from t he eye. Condition on Discharge: Stable. Pre Operative Diagnosis: Age-related Exudative Macular Degenerat ion with Choroidal neovascularization Post Operative Diagnosis: Age-related Exudative Macular Degenerat ion with Choroidal neovascularization Procedure: Intravitreal injection of Christi stin 1.25 mg right eye Assist: Director Of User Experience Anesthesia: Topical proparacaine and top ical 4% lidocaine Complications: None Procedure: The patient was taken to the minor treat ment suite where the patient was reidentified using name and birthdate as critical identifiers. The correct eye as the operative site was reidentifi ed by preplaced site donnie, and the consent form was actively reviewed by mauricio tracey assistant chief nursing officer and the surgeon. The right eye was prepped including inst illation of Betadine 5% into the right cul de sac for 5 minutes, facial p rep with ophthalmic Betadine, placement of a lid speculum. The Surgeon performed hand washing preop eratively, used gloves, and wore a face mask or used no talking technique during the procedure, as did the surgical rn. After topical anesthesia of the injectio n [...] call the Eye Clinic or Eye Doctor commissions specialist, should they devel op pain in the [...] Date Dose Rate Site BEVACizumab (Avastin) Given 02/12/2022 2:30 PM EDT 1.25 mg Left Eye ophthalmic injection 1.25 mg 1.25 mg, Intravitreal, ONCE, 1 dose, On Sat02/12/22 at 1430, For ophthalmic use only. Syringe contains 0.1 mL of overfill , Routine BEVACizumab (Avastin) ophthalmic Given 02/12/2022 2:30 PM EDT 1. 25 mg Right Eye injection 1.25 mg 1.25 mg, Intravitreal, ONCE, 1 dose, On Sat02/12/22 at 1430, For ophthalmic use only. Syringe contains 0.1 mL of overfill , Routine documented in this encounter Care Teams Cloth Tester Quality Relationship Specialty Start Date End Date Caroline Greenberg, METALLOGRAPHIC TECHNICIAN PCP - General Family Medicine 06/16/[address] [place] [address] [address] [place] [address] (work) documented as of this encounter
--- OUTSIDE RECORDS SUMMARY | 2022-06-08 01:23 | XMS_ITS | Encounter Summary ---
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 r degeneration of both eyes with active choroidal neovascular ization Encounter Details Date Type Department Care Team Description 09/01/2021 Office Visit Ophthalmology at [facility] C Lalit Willoughby, Exudative age-related macula r degeneration of both eyes with active choroidal neovascularization; [facility] Combined forms of age-related [place] [address] CENTER [phone] OPHTHALMOLOGY DEPT [place], [place] [address] Social History Tobacco Use Types Packs/Day Years Used Date Former Smoker Quit: 1966 Smokeless Tobacco: Former User Alcohol Use Standard Drinks/Week Comments Yes 0 (1 standard drink = 0.6 oz pure alcoho l) Sex Assigned at Date Recorded Not on file documented as of this encounter Progress Notes Lalit Willoughby MD - 09/01/2021 10:45 AM EDT ASSESSMENT: 1. Exudative age-related macular degeneration of both eyes with active choroidal neovascularization 2. Combined forms of age-related cataract of both eyes New wet AMD noted June 2020 left eye, April 2021 Right eye Initially treating right eye Q4 weeks, and continue left eye Q 8 weeks. Visual Acuity Visual Acuity (Snellen - Linear) Right Left Dist cc 20/40 -2 20/40 -2 Dist ph cc NI NI Near cc 20/40 20/25 Correction: Glasses OU lens status: 2+ NS, 2+ Cortical OCT: Stable. OD with improved CNV, OS dry PED PLAN: Doing well OU with now stable wet AMD OU. Try and get both eyes on same schedule Q6-8 weeks. Avastin OU #1/3 Today 8 weeks Avastin OU #2/3 MSO only 8 weeks Avastin OU #3/3 MSO only 8 weeks for Re-eval FV+MSO with DFE/OCT. DFE in procedure room [place]. documented in this encounter Plan of Treatment Upcoming Encounters Date Type Specialty Care Team Description 07/23/2022 Office Visit Ophthalmology Lalit Willoughby MD [facility] OPHTHALMOLOGY [place], [place] [address] (Wo rk) documented as of this encounter Procedures Procedure Name Priority Date/Time Associated Diagnosis Comme nts OCT RETINA - OU - Routine 09/01/2021 11:45 Exudative age-relat ed Results for this BOTH EYES AM EDT macular degeneration procedu re are in of both eyes with the result s active choroidal section. neovascularizati on Combined forms of age-related cataract of both eyes documented in this encounter Results OCT Retina - OU - Both Eyes (09/01/2021 11:45 AM EDT) Anatomical Region Laterality Modality Other Specimen (Source) Anatomical Location Collection Method / Collectio n Time Received Time / Laterality Volume Narrative 09/01/2021 11:45 AM EDT Right Eye Quality was good. Scan locations include d subfoveal. Progression has improved. Findings include normal observ ations, abnormal foveal contour, pigment epithelial detachment, subretina l scarring. Left Eye Quality was good. Scan locations include d subfoveal. Progression has been stable. Findings include normal observat ions, abnormal foveal contour, subretinal scarring. Notes OD: Stable CNV OS: collapsed PED Lalit Willoughby MD OPHTHALMOLOGY SERVICES ORDER ROWENA documented in this encounter Visit Diagnoses Diagnosis Exudative age-related macular degenerati on of both eyes with active choroidal neovascularization Combined forms of age-related cataract o f both eyes Other and combined forms of senile catar act documented in this encounter Care Teams Barrel Rifler Hook Relationship Specialty Start Date End Date Caroline Greenberg, SENIOR ACCOUNT DIRECTOR PCP - General Family Medicine 06/16/[address] [place] [address] documented as of this encounter
--- OUTSIDE RECORDS SUMMARY | 2022-06-08 01:23 | XMS_ITS | Encounter Summary ---
:1935 Author Organization [facility] [place] [address] Care Team Providers Name Role Phone Caroline Greenberg APRN Primary Care Provider Reason for Visit Reason Comments Procedure #2/3 MSO Avastin OS Encounter Details Date Type Department Care Team Description 12/02/2020 Procedure visit Ophthalmology at Lalit Willoughby Exudati ve age-related [facility] [place] macular degeneration of [facility] left eye with active Drive [address] [place], [place] OPHTHALMOLOGY neovasculariza tion [phone] DEPT [phone] [place] [address] Social History Tobacco Use Types Packs/Day Years Used Date Former Smoker Smokeless Tobacco: Former User Alcohol Use Standard Drinks/Week Comments Yes 0 (1 standard drink = 0.6 oz pure alcoho l) Sex Assigned at Date Recorded Not on file documented as of this encounter Patient Instructions Patient InstructionsJoanna Ramirez - 12/02/2020 11:00 AM EST Today you had your left [...] about driving: We always recommend having a drop hammer pile driver operator on the day you [...] Normal and Not Expected side effects: Call [phone] (Eye Clinic) DAY or NIGHT, HOLIDAY or [...] encounter Progress Notes Lalit Willoughby MD - 12/02/2020 11:00 AM EST ASSESSMENT: 1. Exudative age-related macular degeneration of left eye with active choroidal neovascularization Avastin OS #2/3 Today PLAN: Follow up as scheduled 01/14/2021 for Avastin OS #3/3 MSO only 02/24/2021 for Re-eval FV+MSO with DFE/OCT I, Stefany Mccain, have performed the documentation [...] Willoughby MD [facility] [address] [place], [place] [address] (Wo rk) documented as of this encounter Procedures Procedure Name Priority Date/Time Associated Diagnosis Comme nts INTRAVITREAL Routine 12/02/2020 1:12 Exudative age-related Res ults for INJECTION PM EST macular degeneration of this procedure PHARMACOLOGIC AGENT left eye with active are in the - OS - LEFT EYE choroidal results neovascularization section. documented in this encounter Results Intravitreal Injection Pharmacologic Agent - OS - Left Eye (12/02/2020 1:12 PM EST) Anatomical Region Laterality Modality Other Specimen (Source) Anatomical Location Collection Method / Collectio n Time Received Time / Laterality Volume Narrative 12/02/2020 1:12 PM EST Pre Operative Diagnosis: Age-related Exudative Macular Degenerati on with Choroidal Neovascularization Post Operative Diagnosis: Age-related Exudative Macular Degenerati on with Choroidal Neovascularization Procedure: Intravitreal injection of Christi stin 1.25 mg left eye Assist: Fashion Adviser Anesthesia: Topical Proparacaine and Top ical 4% Lidocaine Complications: None Procedure: The patient was taken to the minor treat ment suite where the patient was reidentified using name and birthdate as critical identifiers. The correct eye as the operative site was reidentifi ed by preplaced site donnie, and the consent form was actively reviewed by mauricio tracey judicial administrative assistant and the surgeon. The left eye was prepped including insti llation of Betadine 5% into the left cul de sac for 5 minutes, facial pr ep with ophthalmic Betadyie and placement of a lid speculum. The Surgeon performed hand washing preop eratively, used gloves, and wore a face mask or used no talking technique during the procedure, as did the surgical first assistant. After topical anesthesia of the injectio [...] call the Eye Clinic or Eye Doctor production support developer, should the y develop pain in the [...] Date Dose Rate Site BEVACizumab (Avastin) Given 12/02/2020 1:30 PM EST 1.25 mg Left Eye ophthalmic injection 1.25 mg 1.25 mg, Intravitreal, ONCE, 1 dose, On Sat12/02/20 at 1330, For ophthalmic use only. Syringe contains 0.1 mL of overfill , Routine documented in this encounter Care Teams Upkeep Mechanic Relationship Specialty Start Date End Date Caroline Greenberg, DERIAN PCP - General Family Medicine 06/16/[address] [place] [address] documented as of this encounter
--- OUTSIDE RECORDS SUMMARY | 2022-06-08 01:23 | XMS_ITS | Encounter Summary ---
:1935 Author Organization [facility] [place] [address] Care Team Providers Name Role Phone Caroline Greenberg APRN Primary Care Provider Reason for Visit Reason Comments Procedure Avastin OU #3/ Encounter Details Date Type Department Care Team Description 05/18/2022 Procedure visit Ophthalmology at Lalit Willoughby Exudati ve age-related [facility] NMD macular degeneration of [facility] both eyes with active Drive [address] lopez [place], [place] OPHTHALMOLOGY neovasculariza tion [phone] DEPT [phone] [place] [address] Social History Tobacco Use Types Packs/Day Years Used Date Former Smoker Quit: 1966 Smokeless Tobacco: Former User Alcohol Use Standard Drinks/Week Comments Yes 0 (1 standard drink = 0.6 oz pure alcoho l) Sex Assigned at Date Recorded Not on file documented as of this encounter Patient Instructions Patient InstructionsNorm Carrizales COA - 05/18/2022 2:45 PM EDT Today you had your both [...] about driving: We always recommend having a milk pickup driver on the day you get an [...] Normal and Not Expected side effects: Call [phone] (Eye Clinic) DAY or NIGHT, HOLIDAY or [...] encounter Progress Notes Lalit Willoughby MD - 05/18/2022 2:45 PM EDT ASSESSMENT: 1. Exudative age-related macular degeneration of both eyes with active choroidal neovascularization 8 weeks Avastin OU #3/3 MSO only PLAN: Follow up as scheduled: 8 weeks for Re-eval FV+MSO with DFE/OCT. DFE in procedure room OK. I have seen the patient in person and reviewed the resident's history and I agree with the details as written. The assessment and plan were formulated in discussion with me and I agree with them as documented. Lalit Willoughby MD documented in this encounter Miscellaneous Notes Addendum Note - Lalit Willoughby MD - 05/18/2022 2:45 PM EDT Addended by: LALIT WILLOUGHBY on: 05/18/2022 06:09 PM Modules accepted: Level of Service documented in this encounter Plan of Treatment Upcoming Encounters Date Type Specialty Care Team Description 07/23/2022 Office Visit Ophthalmology Lalit Willoughby MD [facility] ER DR OPHTHALMOLOGY [place], [place] [address] (Wo rk) documented as of this encounter Procedures Procedure Name Priority Date/Time Associated Diagnosis Comme nts INTRAVITREAL Routine 05/18/2022 3:36 Exudative age-related Res ults for INJECTION PM EDT macular degeneration of this procedure PHARMACOLOGIC AGENT both eyes with active are in the AMB - OU - BOTH EYES choroidal results neovascularization section. documented in this encounter Results Intravitreal Injection of Pharmacologic Agent - OU - BOTH EYES (05/18/2022 3:36 PM EDT) Anatomical Region Laterality Modality Other Specimen (Source) Anatomical Location Collection Method / Collectio n Time Received Time / Laterality Volume Narrative 05/18/2022 6:08 PM EDT Pre-Op Patient understands the risks and benefi ts of the treatment as outlined on the consent. Anesthesia Right Eye Topical anesthesia was used. Notes Pre Operative Diagnosis: Age-related Exudative Macular Degenerati on with Choroidal Neovascularization Post Operative Diagnosis: Age-related Exudative Macular Degenerati on with Choroidal Neovascularization Procedure: Intravitreal injection of Christi stin 1.25 mg left eye Assist: Belt Builder Anesthesia: Topical Proparacaine and Top ical 4% Lidocaine Complications: None Procedure: The patient was taken to the minor treat ment suite where the patient was reidentified using name and birthdate as critical identifiers. The correct eye as the operative site was reidentifi ed by preplaced site donnie, and the consent form was actively reviewed by mauricio tracey business office assistant and the surgeon. The left eye was prepped including insti llation of Betadine 5% into the left cul de sac for 5 minutes, facial pr ep with ophthalmic Betadyie and placement of a lid speculum. The Surgeon performed hand washing preop eratively, used gloves, and wore a face mask or used no talking technique during the procedure, as did the surgical instrument repair specialist. After topical anesthesia of the injectio n [...] call the Eye Clinic or Eye Doctor online publisher, should the y develop pain in the treated eye, increasing redness or a discharge from t he eye. Condition on Discharge: Stable. Pre Operative Diagnosis: Age-related Exudative Macular Degenerat ion with Choroidal neovascularization Post Operative Diagnosis: Age-related Exudative Macular Degenerat ion with Choroidal neovascularization Procedure: Intravitreal injection of Christi stin 1.25 mg right eye Assist: Belt Builder Anesthesia: Topical proparacaine and top ical 4% lidocaine Complications: None Procedure: The patient was taken to the minor treat ment suite where the patient was reidentified using name and birthdate as critical identifiers. The correct eye as the operative site was reidentifi ed by preplaced site donnie, and the consent form was actively reviewed by mauricio tracey business office assistant and the surgeon. The right eye was prepped including inst illation of Betadine 5% into the right cul de sac for 5 minutes, facial p rep with ophthalmic Betadine, placement of a lid speculum. The Surgeon performed hand washing preop eratively, used gloves, and wore a face mask or used no talking technique during the procedure, as did the surgical instrument repair specialist. After topical anesthesia of the injectio n [...] call the Eye Clinic or Eye Doctor online publisher, should they devel op pain in the [...] Date Dose Rate Site BEVACizumab (Avastin) Given 05/18/2022 4:00 PM EDT 1.25 mg Left Eye ophthalmic injection 1.25 mg 1.25 mg, Intravitreal, ONCE, 1 dose, On Sat05/18/22 at 1600, For ophthalmic use only. Syringe contains 0.1 mL of overfill , Routine BEVACizumab (Avastin) ophthalmic Given 05/18/2022 4:00 PM EDT 1. 25 mg Right Eye injection 1.25 mg 1.25 mg, Intravitreal, ONCE, 1 dose, On Sat05/18/22 at 1600, For ophthalmic use only. Syringe contains 0.1 mL of overfill , Routine documented in this encounter Care Teams Pmp Project Manager Relationship Specialty Start Date End Date Caroline Greenberg APRN PCP - General Family Medicine 06/16/[address] [place] [address] documented as of this encounter
--- OUTSIDE RECORDS SUMMARY | 2022-06-08 01:23 | XMS_ITS | Encounter Summary ---
:1935 Author Organization [facility] [place] [address] Care Team Providers Name Role Phone Gerrycehlly Caroline Collin MENARD Primary Care Provider Reason for Visit Reason Onset Date Comments Follow-up 09/07/2021 Encounter Details Date Type Department Care Team Description 09/07/2021 Telephone Ophthalmology at [facility] Lalit Bhagat MD Follow-up [facility] [place] [address] OPHTHALMOLOGY DEPT [phone] [place], [place] [address] (Wo rk) Social History Tobacco Use Types Packs/Day Years Used Date Former Smoker Quit: 1966 Smokeless Tobacco: Former User Alcohol Use Standard Drinks/Week Comments Yes 0 (1 standard drink = 0.6 oz pure alcoho l) Sex Assigned at Date Recorded Not on file documented as of this encounter Miscellaneous Notes Telephone Encounter - Kimberly Mercado - 09/18/2021 1:34 PM EST Left second message, sending a letter as well Telephone Encounter - Kimberly Mercado - 09/07/2021 10:30 AM EDT Called and left message to call and schedule next series of injections: : Avastin OU #1/3 Today 8 weeks Avastin OU #2/3 MSO only(around 10/27/21) 8 weeks Avastin OU #3/3 MSO only 8 weeks for Re-eval FV+MSO with DFE/OCT. DFE in procedure room OK. documented in this encounter Plan of Treatment Upcoming Encounters Date Type Specialty Care Team Description 07/23/2022 Office Visit Ophthalmology Lalit Willoughby MD [facility] ER DR OPHTHALMOLOGY [place], [place] [address] (Wo rk) documented as of this encounter Visit Diagnoses Not on filedocumented in this encounter Care Teams Plastics Process Hand Relationship Specialty Start Date End Date Caroline Greenberg, DERIAN PCP - General Family Medicine 06/16/[address] [place] [address] documented as of this encounter
--- OUTSIDE RECORDS SUMMARY | 2022-06-08 01:23 | XMS_ITS | Encounter Summary ---
:1935 Author Organization [facility] [place] [address] Care Team Providers Name Role Phone Caroline Greenberg Collin MENARD Primary Care Provider Reason for Visit Reason Comments Procedure Macular Degeneration Encounter Details Date Type Department Care Team Description 10/17/2020 Office Visit Ophthalmology at [facility] Lalit Willoughby Advanced nonexudative age-re lated macular degeneration of right eye with subfoveal involvement; [facility] MD Leia Exudative age-related macular degenerati on of left eye with active choroidal neovascularization Drive [facility] [address] OPHTHALMOLOGY [phone] [place] [address] Social History Tobacco Use Types Packs/Day Years Used Date Former Smoker Smokeless Tobacco: Former User Alcohol Use Standard Drinks/Week Comments Yes 0 (1 standard drink = 0.6 oz pure alcoho l) Sex Assigned at Date Recorded Not on file documented as of this encounter Progress Notes Lalit Willoughby MD - 10/17/2020 10:45 AM EST ASSESSMENT: 1. 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 Exudative age-related macular degeneration of left eye with active choroidal neovascularization Now s/p monthly Avastin x3 OS for new we tAMD noted June 2020. Visual Acuity Visual Acuity (Snellen - Linear) Right Left Dist cc 20/30 +2 20/70 +2 Dist ph cc NI NI Near cc 20/25+2 20/30-2 Correction: Glasses OD: MOderate/advanced dry AMD OS: *collapsed PED with improved leakage. PLAN: Extend treatments to 6-8 weeks. Avastin OS #1/3 Today 6 weeks Avastin OS #2/3 MSO only 6 weeks Avastin OS #3/3 MSO only 6 weeks for Re-eval FV+MSO with DFE/OCT Sooner PRN Lalit Dupree. MD Case documented in this encounter Plan of Treatment Upcoming Encounters Date Type Specialty Care Team Description 07/23/2022 Office Visit Ophthalmology Lalit Willoughby MD [facility] ER DR OPHTHALMOLOGY [place], [place] [address] (Wo rk) documented as of this encounter Procedures Procedure Name Priority Date/Time Associated Diagnosis Comme nts OCT RETINA - OU - Routine 10/17/2020 12:08 Advanced nonexudati ve Results for this BOTH EYES PM EST age-related macular procedur e are in degeneration of right eye th e results with subfoveal i nvolvement section. Exudative age-related macular degeneration of left eye with active choroidal neovascularization documented in this encounter Results OCT Retina - OU - Both Eyes (10/17/2020 12:08 PM EST) Anatomical Region Laterality Modality Other Specimen (Source) Anatomical Location Collection Method / Collectio n Time Received Time / Laterality Volume Narrative 10/17/2020 12:08 PM EST Right Eye Quality was good. Scan locations include d subfoveal. Progression has been stable. Findings include normal observat ions, abnormal foveal contour. Left Eye Quality was good. Scan locations include d subfoveal. Progression has improved. Findings include normal observ ations, abnormal foveal contour, subretinal scarring. Notes OD: drusen OS: collapsed PED Lalit Willoughby MD OPHTHALMOLOGY SERVICES ORDER ROWENA documented in this encounter Visit Diagnoses Diagnosis Advanced nonexudative age-related macula r degeneration of right eye with subfoveal involvement Exudative age-related macular degenerati on of left eye with active choroidal neovascularization documented in this encounter Care Teams Executive Secretary Social Welfare Relationship Specialty Start Date End Date Caroline Greenberg, LABORER VINEYARD PCP - General Family Medicine 06/16/[address] [place] [address] documented as of this encounter
--- OUTSIDE RECORDS SUMMARY | 2022-06-08 01:23 | XMS_ITS | Encounter Summary ---
:1935 Author Organization [facility] [place] [address] Care Team Providers Name Role Phone Caroline Greenberg APRN Primary Care Provider Reason for Visit Reason Comments Procedure Avastin OD for WET AMD Encounter Details Date Type Department Care Team Description 05/29/2021 Procedure visit Ophthalmology at Lalit Willoughby Exudati ve age-related [facility] NMD macular degeneration of [facility] both eyes with active Drive [address] [place], [place] OPHTHALMOLOGY neovasculariza tion [address] DEPT [phone] [place] [address] Social History Tobacco Use Types Packs/Day Years Used Date Former Smoker Quit: 1966 Smokeless Tobacco: Former User Alcohol Use Standard Drinks/Week Comments Yes 0 (1 standard drink = 0.6 oz pure alcoho l) Sex Assigned at Date Recorded Not on file documented as of this encounter Patient Instructions Patient InstructionsSaira Lopez - 05/29/2021 9:45 AM EDT Today you had your right eye(s) injected with a medication called Avastin today. -Please pay attention to your future scheduled [...] about driving: We always recommend having a racing driver on the day you get an [...] Normal and Not Expected side effects: Call [phone] (Eye Clinic) DAY or NIGHT, HOLIDAY or [...] encounter Progress Notes Lalit Willoughby MD - 05/29/2021 9:45 AM EDT ASSESSMENT: 1. Exudative age-related macular degeneration of both eyes with active choroidal neovascularization 4-5 weeks Avastin OD MSO only treating right eye Q4 weeks, and continue left eye Q 8 weeks. PLAN: Follow up as scheduled: 4-5 weeks Avastin OU (Both eyes) MSO only. 4-5 weeks Avastin OD MSO only. 4-5 weeks DFE/OCT. Re-eval with planned Avastin OU. FV + MSO. Sooner PRN Lalit Dupree. MD Case documented in this encounter Plan of Treatment Upcoming Encounters Date Type Specialty Care Team Description 07/23/2022 Office Visit Ophthalmology Lalit iWlloughby MD [facility] ER OPHTHALMOLOGY [place], [place] [address] (Wo rk) documented as of this encounter Procedures Procedure Name Priority Date/Time Associated Diagnosis Comme nts INTRAVITREAL Routine 05/29/2021 10:27 Exudative age-related Re sults for INJECTION AM EDT macular degeneration of this procedure PHARMACOLOGIC AGENT both eyes with active are in the - OD - RIGHT EYE choroidal results neovascularization section. documented in this encounter Results Intravitreal Injection Pharmacologic Agent - OD - Right Eye (05/29/2021 10:27 AM EDT) Anatomical Region Laterality Modality Other Specimen (Source) Anatomical Location Collection Method / Collectio n Time Received Time / Laterality Volume Narrative 05/29/2021 10:27 AM EDT Pre Operative Diagnosis: Age-related Exudative Macular Degenerat ion with Choroidal neovascularization Post Operative Diagnosis: Age-related Exudative Macular Degenerat ion with Choroidal neovascularization Procedure: Intravitreal injection of Christi stin 1.25 mg right eye Assist: Dowel Sander Operator Anesthesia: Topical proparacaine and top ical 4% lidocaine Complications: None Procedure: The patient was taken to the minor treat ment suite where the patient was reidentified using name and birthdate as critical identifiers. The correct eye as the operative site was reidentifi ed by preplaced site donnie, and the consent form was actively reviewed by mauricio tracey fiscal assistant and the surgeon. The right eye was prepped including inst illation of Betadine 5% into the right cul de sac for 5 minutes, facial p rep with ophthalmic Betadine, placement of a lid speculum. The Surgeon performed hand washing preop eratively, used gloves, and wore a face mask or used no talking technique during the procedure, as did the surgical services manager. After topical anesthesia of the injectio [...] call the Eye Clinic or Eye Doctor health education aide, should they devel op pain in the [...] Date Dose Rate Site BEVACizumab (Avastin) Given 05/29/2021 10:45 AM EDT 1.25 mg Right Eye ophthalmic injection 1.25 mg 1.25 mg, Intravitreal, ONCE, 1 dose, On 05/29/21 at 1045, For ophthalmic use only. Syringe contains 0.1 mL of overfill , Routine documented in this encounter Care Teams Rn Lvn Relationship Specialty Start Date End Date Caroline Greenberg, BATTER MIXER HELPER PCP - General Family Medicine 06/16/20 [facility] [address] [place] [address] documented as of this encounter
--- OUTSIDE RECORDS SUMMARY | 2022-06-08 01:23 | XMS_ITS | Encounter Summary ---
:1935 Author Organization [facility] [place] [address] Care Team Providers Name Role Phone Caroline Greenberg APRN Primary Care Provider Reason for Visit Reason Comments Procedure Encounter Details Date Type Department Care Team Description 04/02/2022 Procedure visit Ophthalmology at Lalit Willoughby Exudati ve age-related [facility] [place] [facility] NMD macular degeneration of [facility] both eyes with active Drive [address] [place], [place] OPHTHALMOLOGY neovasculariza tion [phone] DEPT [phone] [place] [address] Social History Tobacco Use Types Packs/Day Years Used Date Former Smoker Quit: 1966 Smokeless Tobacco: Former User Alcohol Use Standard Drinks/Week Comments Yes 0 (1 standard drink = 0.6 oz pure alcoho l) Sex Assigned at Date Recorded Not on file documented as of this encounter Patient Instructions Patient InstructionsAlexa Pinon - 04/02/2022 2:20 PM EDT Today you had your both [...] about driving: We always recommend having a class c truck driver on the day you get [...] Normal and Not Expected side effects: Call [phone] (Eye Clinic) DAY or NIGHT, HOLIDAY or [...] encounter Progress Notes Lalit Willoughby MD - 04/02/2022 1:45 PM EDT ASSESSMENT: 1. 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 DFE in procedure room OK. documented in this encounter Plan of Treatment Upcoming Encounters Date Type Specialty Care Team Description 07/23/2022 Office Visit Ophthalmology Lalit Willoughby MD [facility] OPHTHALMOLOGY [place] [id number] (Wo rk) documented as of this encounter Procedures Procedure Name Priority Date/Time Associated Diagnosis Comme nts INTRAVITREAL Routine 04/02/2022 3:26 Exudative age-related Res ults for INJECTION PM EDT macular degeneration of this procedure PHARMACOLOGIC AGENT both eyes with active are in the AMB - OU - BOTH EYES choroidal results neovascularization section. documented in this encounter Results Intravitreal Injection of Pharmacologic Agent - OU - BOTH EYES (04/02/2022 3:26 PM EDT) Anatomical Region Laterality Modality Other Specimen (Source) Anatomical Location Collection Method / Collectio n Time Received Time / Laterality Volume Narrative 04/02/2022 3:26 PM EDT Pre Operative Diagnosis: Age-related Exudative Macular Degenerati on with Choroidal Neovascularization Post Operative Diagnosis: Age-related Exudative Macular Degenerati on with Choroidal Neovascularization Procedure: Intravitreal injection of Christi stin 1.25 mg left eye Assist: Outcomes Analyst Anesthesia: Topical Proparacaine and Top ical 4% Lidocaine Complications: None Procedure: The patient was taken to the minor treat ment suite where the patient was reidentified using name and birthdate as critical identifiers. The correct eye as the operative site was reidentifi ed by preplaced site donnie, and the consent form was actively reviewed by mauricio tracey religious assistant and the surgeon. The left eye was prepped including insti llation of Betadine 5% into the left cul de sac for 5 minutes, facial pr ep with ophthalmic Betadyie and placement of a lid speculum. The Surgeon performed hand washing preop eratively, used gloves, and wore a face mask or used no talking technique during the procedure, as did the assembler surgical garment. After topical anesthesia of the injectio n [...] call the Eye Clinic or Eye Doctor dumper central concrete mixing plant, should the y develop pain in the treated eye, increasing redness or a discharge from t he eye. Condition on Discharge: Stable. Pre Operative Diagnosis: Age-related Exudative Macular Degenerat ion with Choroidal neovascularization Post Operative Diagnosis: Age-related Exudative Macular Degenerat ion with Choroidal neovascularization Procedure: Intravitreal injection of Christi stin 1.25 mg right eye Assist: Outcomes Analyst Anesthesia: Topical proparacaine and top ical 4% lidocaine Complications: None Procedure: The patient was taken to the minor treat ment suite where the patient was reidentified using name and birthdate as critical identifiers. The correct eye as the operative site was reidentifi ed by preplaced site donnie, and the consent form was actively reviewed by mauricio tracey religious assistant and the surgeon. The right eye was prepped including inst illation of Betadine 5% into the right cul de sac for 5 minutes, facial p rep with ophthalmic Betadine, placement of a lid speculum. The Surgeon performed hand washing preop eratively, used gloves, and wore a face mask or used no talking technique during the procedure, as did the assembler surgical garment. After topical anesthesia of the injectio n [...] call the Eye Clinic or Eye Doctor dumper central concrete mixing plant, should they devel op pain in the [...] Date Dose Rate Site BEVACizumab (Avastin) Given 04/02/2022 3:45 PM EDT 1.25 mg Left Eye ophthalmic injection 1.25 mg 1.25 mg, Intravitreal, ONCE, 1 dose, On Sat04/02/22 at 1545, For ophthalmic use only. Syringe contains 0.1 mL of overfill , Routine BEVACizumab (Avastin) ophthalmic Given 04/02/2022 3:45 PM EDT 1. 25 mg Right Eye injection 1.25 mg 1.25 mg, Intravitreal, ONCE, 1 dose, On 04/02/22 at 1545, For ophthalmic use only. Syringe contains 0.1 mL of overfill , Routine documented in this encounter Care Teams Combustion Analyst Relationship Specialty Start Date End Date Caroline Greenberg APRN PCP - General Family Medicine 06/16/[address] [place] [address] [address] [place] [address] documented as of this encounter
--- OUTSIDE RECORDS SUMMARY | 2022-06-08 01:23 | XMS_ITS | Encounter Summary ---
:1935 Author Organization [facility] [place] [address] Care Team Providers Name Role Phone Caroline Greenberg APRN Primary Care Provider Reason for Visit Reason Comments Procedure Encounter Details Date Type Department Care Team Description 01/14/2021 Procedure visit Ophthalmology at Lalit Willoughby Exudati ve age-related [facility] NMD macular degeneration of [facility] left eye with active Drive [address]opez [place], [place] OPHTHALMOLOGY neovasculariza tion [phone] DEPT [phone] [place] [address] Social History Tobacco Use Types Packs/Day Years Used Date Former Smoker Smokeless Tobacco: Former User Alcohol Use Standard Drinks/Week Comments Yes 0 (1 standard drink = 0.6 oz pure alcoho l) Sex Assigned at Date Recorded Not on file documented as of this encounter Patient Instructions Patient InstructionsBrooke Taylor - 01/14/2021 10:30 AM EST Today you had your left [...] about driving: We always recommend having a otr flatbed driver on the day you get an [...] Normal and Not Expected side effects: Call [phone] (Eye Clinic) DAY or NIGHT, HOLIDAY or [...] encounter Progress Notes Lalit Willoughby MD - 01/14/2021 10:30 AM EST ASSESSMENT: 1. Exudative age-related macular degeneration of left eye with active choroidal neovascularization Avastin OS #3/3 Today PLAN: Follow up as scheduled 02/24/2021 for Re-eval FV+MSO with DFE/OCT Lalit Willoughby MD documented in this encounter Plan of Treatment Upcoming Encounters Date Type Specialty Care Team Description 07/23/2022 Office Visit Ophthalmology Lalit Willoughby MD [facility] OPHTHALMOLOGY [place], [place] [address] (Wo rk) documented as of this encounter Procedures Procedure Name Priority Date/Time Associated Diagnosis Comme nts INTRAVITREAL Routine 01/14/2021 10:34 Exudative age-related Re sults for INJECTION AM EST macular degeneration of this procedure PHARMACOLOGIC AGENT left eye with active are in the - OS - LEFT EYE choroidal results neovascularization section. documented in this encounter Results Intravitreal Injection Pharmacologic Agent - OS - Left Eye (01/14/2021 10:34 AM EST) Anatomical Region Laterality Modality Other Specimen (Source) Anatomical Location Collection Method / Collectio n Time Received Time / Laterality Volume Narrative 01/14/2021 10:34 AM EST Pre Operative Diagnosis: Age-related Exudative Macular Degenerati on with Choroidal Neovascularization Post Operative Diagnosis: Age-related Exudative Macular Degenerati on with Choroidal Neovascularization Procedure: Intravitreal injection of Christi stin 1.25 mg left eye Assist: Trail Construction Worker Anesthesia: Topical Proparacaine and Top ical 4% Lidocaine Complications: None Procedure: The patient was taken to the minor treat ment suite where the patient was reidentified using name and birthdate as critical identifiers. The correct eye as the operative site was reidentifi ed by preplaced site donnie, and the consent form was actively reviewed by mauricio tracey occupational therapy assistant and the surgeon. The left eye was prepped including insti llation of Betadine 5% into the left cul de sac for 5 minutes, facial pr ep with ophthalmic Betadyie and placement of a lid speculum. The Surgeon performed hand washing preop eratively, used gloves, and wore a face mask or used no talking technique during the procedure, as did the neurosurgical nurse practitioner. After topical anesthesia of the injectio n [...] call the Eye Clinic or Eye Doctor evp chief exploration officer, should the y develop pain in the [...] Date Dose Rate Site BEVACizumab (Avastin) Given 01/14/2021 11:00 AM EST 1.25 mg Left Eye ophthalmic injection 1.25 mg 1.25 mg, Intravitreal, ONCE, 1 dose, On 01/14/21 at 1100, For ophthalmic use only. Syringe contains 0.1 mL of overfill , Routine documented in this encounter Care Teams Controller Instructor Relationship Specialty Start Date End Date Caroline Greenberg APRN PCP - General Family Medicine 06/16/[address] [place] [address] documented as of this encounter
--- OUTSIDE RECORDS SUMMARY | 2022-06-08 01:23 | XMS_ITS | Encounter Summary ---
:1935 Author Organization [facility] [place] [address] Care Team Providers Name Role Phone Caroline Greenberg APRN Primary Care Provider Reason for Visit Reason Comments Procedure Encounter Details Date Type Department Care Team Description 09/01/2021 Procedure visit Ophthalmology at [facility]it Willoughby Exudati ve age-related [facility] [place] macular degeneration of [facility] both eyes with active Drive [address]opez [place], [place] OPHTHALMOLOGY neovasculariza tion [phone] DEPT [phone] [place] [address] Social History Tobacco Use Types Packs/Day Years Used Date Former Smoker Quit: 1966 Smokeless Tobacco: Former User Alcohol Use Standard Drinks/Week Comments Yes 0 (1 standard drink = 0.6 oz pure alcoho l) Sex Assigned at Date Recorded Not on file documented as of this encounter Patient Instructions Patient InstructionsAlexa Pinon - 09/01/2021 5:15 PM EDT Today you had your both [...] about driving: We always recommend having a tractor trailer driver on the day you get an [...] Normal and Not Expected side effects: Call [phone] (Eye Clinic) DAY or NIGHT, HOLIDAY or [...] Office Visit Ophthalmology Lalit Willoughby MD [facility] OPHTHALMOLOGY [place] [address] (Wo rk) documented as of this encounter Procedures Procedure Name Priority Date/Time Associated Diagnosis Comme nts INTRAVITREAL Routine 09/01/2021 12:17 Exudative age-related Re sults for INJECTION PM EDT macular degeneration of this procedure PHARMACOLOGIC AGENT both eyes with active are in the - OD - RIGHT EYE choroidal results neovascularization section. INTRAVITREAL Routine 09/01/2021 12:17 Exudative age-related Re sults for INJECTION PM EDT macular degeneration of this procedure PHARMACOLOGIC AGENT both eyes with active are in the - OS - LEFT EYE choroidal results neovascularization section. 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 The correct eye as the operative site was reidentifi ed by preplaced site donnie, and the consent form was actively reviewed by mauricio tracey assistant to the ceo and the surgeon. The right eye was [...] call the Eye Clinic or Eye Doctor religion professor, should they devel op pain in the treated eye, increasing redness or a discharge from t he eye. Condition on Discharge: Stable. Lalit Willoughby MD OPHTHALMOLOGY SERVICES ORDER ROWENA Intravitreal Injection Pharmacologic Agent - OS - Left Eye (09/01/2021 12:17 PM EDT) Anatomical Region Laterality Modality Other Specimen (Source) Anatomical Location Collection Method / Collectio n Time Received Time / Laterality Volume Narrative 09/01/2021 12:17 PM EDT Pre Operative Diagnosis: Age-related Exudative Macular Degenerati on with Choroidal Neovascularization Post Operative Diagnosis: Age-related Exudative Macular Degenerati on with Choroidal Neovascularization Procedure: Intravitreal injection of Christi stin 1.25 mg left eye Assist: Structural Analysis Engineer Anesthesia: Topical Proparacaine and Top ical 4% Lidocaine Complications: None Procedure: The patient was taken to the minor treat ment suite where the patient was reidentified using name and birthdate as critical identifiers. The correct eye as the operative site was reidentifi ed by preplaced site donnie, and the consent form was actively reviewed by mauricio tracey assistant to the ceo and the surgeon. The left eye was [...] call the Eye Clinic or Eye Doctor religion professor, should the y develop pain in the [...] Date Dose Rate Site BEVACizumab (Avastin) Given 09/01/2021 12:45 PM EDT 1.25 mg Left Eye ophthalmic injection 1.25 mg 1.25 mg, Intravitreal, ONCE, 1 dose, On Sat09/01/21 at 1245, For ophthalmic use only. Syringe contains 0.1 mL of overfill , Routine BEVACizumab (Avastin) ophthalmic Given 09/01/2021 12:45 PM EDT 1 .25 mg Right Eye injection 1.25 mg 1.25 mg, Intravitreal, ONCE, 1 dose, On Sat09/01/21 at 1245, For ophthalmic use only. Syringe contains 0.1 mL of overfill , Routine documented in this encounter Care Teams Fios Line Installer Relationship Specialty Start Date End Date Caroline Greenberg, BRAN MIXER PCP - General Family Medicine 06/16/[address] [place] [address] [address] [place] [address] documented as of this encounter
--- OUTSIDE RECORDS SUMMARY | 2022-06-08 01:23 | XMS_ITS | Encounter Summary ---
:1935 Author Organization [facility] [place] [address] Care Team Providers Name Role Phone Caroline Greenberg APRN Primary Care Provider Reason for Visit Reason Comments Procedure Avastin OU for CNVM Encounter Details Date Type Department Care Team Description 12/22/2021 Procedure visit Ophthalmology at Lalit Willoughby Exudati ve age-related [facility] [place] NMD macular degeneration of [facility] both eyes with active Drive [address]opez [place], [place] OPHTHALMOLOGY neovasculariza tion [phone] DEPT [phone] [place] [address] Social History Tobacco Use Types Packs/Day Years Used Date Former Smoker Quit: 1966 Smokeless Tobacco: Former User Alcohol Use Standard Drinks/Week Comments Yes 0 (1 standard drink = 0.6 oz pure alcoho l) Sex Assigned at Date Recorded Not on file documented as of this encounter Patient Instructions Patient InstructionsAlexa Pinon - 12/22/2021 1:11 PM EST Today you had your both [...] about driving: We always recommend having a helper/driver on the day you get an injection. [...] Normal and Not Expected side effects: Call [phone] (Eye Clinic) DAY or NIGHT, HOLIDAY or [...] encounter Progress Notes Lalit Willoughby MD - 12/22/2021 1:30 PM EST ASSESSMENT: 1. Exudative age-related macular degeneration of both eyes with active choroidal neovascularization Avastin OU #3/3 today PLAN: Follow up as scheduled 8 weeks for Re-eval FV+MSO with DFE/OCT. DFE in procedure room [place]. I, Heidi Marrero, have performed the documentation for this encounter [...] Visit Ophthalmology Lalit Willoughby MD [facility] OPHTHALMOLOGY [place], [place] [address] (Wo rk) documented as of this encounter Procedures Procedure Name Priority Date/Time Associated Diagnosis Comme nts INTRAVITREAL Routine 12/22/2021 2:31 Exudative age-related Res ults for INJECTION PM EST macular degeneration of this procedure PHARMACOLOGIC AGENT both eyes with active are in the - OD - RIGHT EYE choroidal results neovascularization section. INTRAVITREAL Routine 12/22/2021 2:31 Exudative age-related Res ults for INJECTION PM EST macular degeneration of this procedure PHARMACOLOGIC AGENT both eyes with active are in the - OS - LEFT EYE choroidal results neovascularization section. documented in this encounter Results Intravitreal Injection Pharmacologic Agent - OD - Right Eye (12/22/2021 2:31 PM EST) Anatomical Region Laterality Modality Other Specimen (Source) Anatomical Location Collection Method / Collectio n Time Received Time / Laterality Volume Narrative 12/22/2021 2:31 PM EST Pre Operative Diagnosis: Age-related Exudative Macular Degenerat ion with Choroidal neovascularization Post Operative Diagnosis: Age-related Exudative Macular Degenerat ion with Choroidal neovascularization Procedure: Intravitreal injection of Christi stin 1.25 mg right eye Assist: Infantry Weapons Officer Anesthesia: Topical proparacaine and top ical 4% lidocaine Complications: None Procedure: The patient was taken to the minor treat ment suite where the patient was reidentified using name and birthdate as critical identifiers. The correct eye as the operative site was reidentifi ed by preplaced site donnie, and the consent form was actively reviewed by mauricio e general assistant and the surgeon. The right eye was prepped including inst illation of Betadine 5% into the right cul de sac for 5 minutes, facial p rep with ophthalmic Betadine, placement of a lid speculum. The Surgeon performed hand washing preop eratively, used gloves, and wore a face mask or used no talking technique during the procedure, as did the surgical training specialist. After topical anesthesia of the injectio [...] call the Eye Clinic or Eye Doctor parking control officer, should they devel op pain in the treated eye, increasing redness or a discharge from t he eye. Condition on Discharge: Stable. Lalit Willoughby MD OPHTHALMOLOGY SERVICES ORDER ROWENA Intravitreal Injection Pharmacologic Agent - OS - Left Eye (12/22/2021 2:31 PM EST) Anatomical Region Laterality Modality Other Specimen (Source) Anatomical Location Collection Method / Collectio n Time Received Time / Laterality Volume Narrative 12/22/2021 2:31 PM EST Pre Operative Diagnosis: Age-related Exudative Macular Degenerati on with Choroidal Neovascularization Post Operative Diagnosis: Age-related Exudative Macular Degenerati on with Choroidal Neovascularization Procedure: Intravitreal injection of Christi stin 1.25 mg left eye Assist: Infantry Weapons Officer Anesthesia: Topical Proparacaine and Top ical 4% Lidocaine Complications: None Procedure: The patient was taken to the minor treat ment suite where the patient was reidentified using name and birthdate as critical identifiers. The correct eye as the operative site was reidentifi ed by preplaced site donnie, and the consent form was actively reviewed by mauricio tracey general assistant and the surgeon. The left eye was prepped including insti llation of Betadine 5% into the left cul de sac for 5 minutes, facial pr ep with ophthalmic Betadyie and placement of a lid speculum. The Surgeon performed hand washing preop eratively, used gloves, and wore a face mask or used no talking technique during the procedure, as did the surgical training specialist. After topical anesthesia of the injectio [...] call the Eye Clinic or Eye Doctor parking control officer, should the y develop pain in [...] Date Dose Rate Site BEVACizumab (Avastin) Given 12/22/2021 3:00 PM EST 1.25 mg Left Eye ophthalmic injection 1.25 mg 1.25 mg, Intravitreal, ONCE, 1 dose, On Sat12/22/21 at 1500, For ophthalmic use only. Syringe contains 0.1 mL of overfill , Routine BEVACizumab (Avastin) ophthalmic Given 12/22/2021 3:00 PM EST 1. 25 mg Right Eye injection 1.25 mg 1.25 mg, Intravitreal, ONCE, 1 dose, On Sat12/22/21 at 1500, For ophthalmic use only. Syringe contains 0.1 mL of overfill , Routine documented in this encounter Care Teams School Counselor Relationship Specialty Start Date End Date Caroline Greenberg, MEDIA STRATEGIST PCP - General Family Medicine 06/16/[address] [place] [address] documented as of this encounter
--- OUTSIDE RECORDS SUMMARY | 2022-06-08 01:23 | XMS_ITS | Encounter Summary ---
:1935 Author Organization [facility] [place] [address] Care Team Providers Name Role Phone Caroline Greenberg APRN Primary Care Provider Reason for Visit Reason Comments Procedure Encounter Details Date Type Department Care Team Description 02/24/2021 Procedure visit Ophthalmology at Lalit Willoughby Exudati ve age-related [facility] NMD macular degeneration of [facility] left eye with active Drive [address] lopez [place], [place] OPHTHALMOLOGY neovasculariza tion [address] DEPT [phone] [place] [address] Social History Tobacco Use Types Packs/Day Years Used Date Former Smoker Smokeless Tobacco: Former User Alcohol Use Standard Drinks/Week Comments Yes 0 (1 standard drink = 0.6 oz pure alcoho l) Sex Assigned at Date Recorded Not on file documented as of this encounter Patient Instructions Patient Christine Woodruff - 02/24/2021 4:30 PM EDT Today you had your left [...] about driving: We always recommend having a concrete pile driver operator on the day you [...] Normal and Not Expected side effects: Call [phone] (Eye Clinic) DAY or NIGHT, HOLIDAY or [...] 07/23/2022 Office Visit Ophthalmology Lalit Willoughby MD [facility] OPHTHALMOLOGY [place] [address] (Wo rk) documented as of this encounter Procedures Procedure Name Priority Date/Time Associated Diagnosis Comme nts INTRAVITREAL Routine 02/24/2021 3:17 Exudative age-related Res ults for INJECTION PM EDT macular degeneration of this procedure PHARMACOLOGIC AGENT left eye with active are in the - OS - LEFT EYE choroidal results neovascularization section. documented in this encounter Results Intravitreal Injection Pharmacologic Agent - OS - Left Eye (02/24/2021 3:17 PM EDT) Anatomical Region Laterality Modality Other Specimen (Source) Anatomical Location Collection Method / Collectio n Time Received Time / Laterality Volume Narrative 02/24/2021 3:17 PM EDT Pre Operative Diagnosis: Age-related Exudative Macular Degenerati on with Choroidal Neovascularization Post Operative Diagnosis: Age-related Exudative Macular Degenerati on with Choroidal Neovascularization Procedure: Intravitreal injection of Christi stin 1.25 mg left eye Assist: Maritime Officer Anesthesia: Topical Proparacaine and Top ical 4% Lidocaine Complications: None Procedure: The patient was taken to the minor treat ment suite where the patient was reidentified using name and birthdate as critical identifiers. The correct eye as the operative site was reidentifi ed by preplaced site donnie, and the consent form was actively reviewed by mauricio tracey housing assistant and the surgeon. The left eye was prepped including insti llation of Betadine 5% into the left cul de sac for 5 minutes, facial pr ep with ophthalmic Betadyie and placement of a lid speculum. The Surgeon performed hand washing preop eratively, used gloves, and wore a face mask or used no talking technique during the procedure, as did the production assistant. After topical anesthesia of the injectio [...] call the Eye Clinic or Eye Doctor vice president of instruction, should the y develop pain in the [...] Date Dose Rate Site BEVACizumab (Avastin) Given 02/24/2021 3:45 PM EDT 1.25 mg Left Eye ophthalmic injection 1.25 mg 1.25 mg, Intravitreal, ONCE, 1 dose, On Sat02/24/21 at 1545, For ophthalmic use only. Syringe contains 0.1 mL of overfill , Routine documented in this encounter Care Teams Rack Room Worker Relationship Specialty Start Date End Date Caroline Greenberg, COMPUTER SYSTEMS AUDITOR PCP - General Family Medicine 06/16/[address] [place] [address] documented as of this encounter
--- OUTSIDE RECORDS SUMMARY | 2022-06-08 01:23 | XMS_ITS | Encounter Summary ---
:1935 Author Organization [facility] Address [facility] [place] [address] Care Team Providers Name Role Phone Dionicio Caroline Collin MENARD Primary Care Provider Reason for Visit Reason Comments Procedure Encounter Details Date Type Department Care Team Description 08/15/2020 Procedure visit Ophthalmology at Lalit Willoughby Exudati ve age-related [facility] NMD macular degeneration of [facility] left eye with active Drive [facility] [address] [place] OPHTHALMOLOGY neovascular[place] tion [address] DEPT [phone] [place] [address] Social History Tobacco Use Types Packs/Day Years Used Date Former Smoker Smokeless Tobacco: Former User Sex Assigned at Date Recorded Not on file documented as of this encounter Patient Instructions Patient InstructionsPadmaja Calderon N - 08/15/2020 9:15 AM EDT Today you had your left eye(s) [...] about driving: We always recommend having a dedicated truck driver on the day you get [...] Normal and Not Expected side effects: Call [phone] (Eye Clinic) DAY or NIGHT, HOLIDAY or [...] encounter Progress Notes Lalit Willoughby MD - 08/15/2020 9:15 AM EDT ASSESSMENT: 1. Exudative age-related macular degeneration of left eye with active choroidal neovascularization Avastin #2/3 OS for new Wet AMD PLAN: Follow up as scheduled: 4-6 weeks Avastin OS #3/3 MSO only 4-6 weeks for Re-eval FV+MSO with DFE/OCT, Planned Avastin OS IPavel, have performed the documentation for this encounter in the presence of and acting as a scribe for Lalit Willoughby MD. I performed the services which were documented by the scribe, and I agree with the accuracy of the documentation in this encounter. Lalit Willoughby MD documented in this encounter Plan of Treatment Upcoming Encounters Date Type Specialty Care Team Description 07/23/2022 Office Visit Ophthalmology Lalit Willoughby MD [facility] OPHTHAL[facility]OLOGY [place], [place] [address] (Wo rk) documented as of this encounter Procedures Procedure Name Priority Date/Time Associated Diagnosis Comme nts INTRAVITREAL Routine 08/15/2020 10:16 Exudative age-related Re sults for INJECTION AM EDT macular degeneration of this procedure PHARMACOLOGIC AGENT left eye with active are in the - OS - LEFT EYE choroidal results neovascularization section. documented in this encounter Results Intravitreal Injection Pharmacologic Agent - OS - Left Eye (08/15/2020 10:16 AM EDT) Anatomical Region Laterality Modality Other Specimen (Source) Anatomical Location Collection Method / Collectio n Time Received Time / Laterality Volume Narrative 08/15/2020 10:16 AM EDT Pre Operative Diagnosis: Age-related Exudative Macular Degenerati on with Choroidal Neovascularization Post Operative Diagnosis: Age-related Exudative Macular Degenerati on with Choroidal Neovascularization Procedure: Intravitreal injection of Christi stin 1.25 mg left eye Assist: Student Officer Anesthesia: Topical Proparacaine and Top ical 4% Lidocaine Complications: None Procedure: The patient was taken to the minor treat ment suite where the patient was reidentified using name and birthdate as critical identifiers. The correct eye as the operative site was reidentifi ed by preplaced site donnie, and the consent form was actively reviewed by mauricio tracey editorial assistant and the surgeon. The left eye was prepped including insti llation of Betadine 5% into the left cul de sac for 5 minutes, facial pr ep with ophthalmic Betadyie and placement of a lid speculum. The Surgeon performed hand washing preop eratively, used gloves, and wore a face mask or used no talking technique during the procedure, as did the child care assistant. After topical anesthesia of the injectio [...] call the Eye Clinic or Eye Doctor carton folder, should the y develop pain in the [...] Date Dose Rate Site BEVACizumab (AVASTIN) Given 08/15/2020 10:45 AM EDT 1.25 mg Left Eye ophthalmic injection 1.25 mg 1.25 mg, Intravitreal, ONCE, 1 dose, On Sat08/15/20 at 1045, For ophthalmic use only. Syringe contains 0.1 mL of overfill , Routine documented in this encounter Care Teams Sales And Service Officer Relationship Specialty Start Date End Date Caroline Greenberg, FENDER MECHANIC PCP - General Family Medicine 06/16/[address] [place] [address] documented as of this encounter
--- OUTSIDE RECORDS SUMMARY | 2022-06-08 01:23 | XMS_ITS | Encounter Summary ---
:1935 Author Organization [facility] Address [address] [place] [address] Care Team Providers Name Role Phone Astrid Neil MD Primary Care Provider Encounter Details Date Type Department Care Team Description 01/24/2021 Lab Requisition [facility] Caroline Greenberg, PEARL HAND Encounter for other Pathology & [address] [facility] [place], [place] [address] [facility] [address] [place], [place] [phone] (Wo rk) [id number] [phone] Social History Tobacco Use Types Packs/Day Years Used Date Never Assessed Sex Assigned at Date Recorded Not on file documented as of this encounter Plan of Treatment Not on filedocumented as of this encounter Procedures Procedure Name Priority Date/Time Associated Diagnosis Comme nts SURGICAL PATHOLOGY Today 01/24/2021 9:00 EDT Encounter for o ther Results for this general examination procedur e are in the results section. documented in this encounter Results SURGICAL PATHOLOGY (01/24/2021 9:00 EDT) Final Diagnosis A. SKIN OF NECK, RIGHT, SHAVE BIOPSY: [facility] - Verruca vulgaris, inflamed. CENTER LABORATORY SERVICES Attestation By the signature [facility] Electronica lly below, the attending CENTER signed by physician Shayna certifies LABORATORY Lizbeth flores MD on that they have 1) SERVICES 01/25/2021 at 0924 personally conducted a gross and/or microscopic examination of the described specimen(s), and/or personally interpreted the results of laboratory testing of the described specimen(s), and 2) personally rendered or confirmed the above diagnosis. Clinical History Right neck skin tag [facility] round, 3 mm in CENTER diameter; previous LABORATORY history of skin SERVICES cancer; facial lesion Gross Description A. [facility] Received in formalin ana d with proper patient identification (initials H, C) and right neck (skin tag) is a portion of white speckled black verrucoid skin (0.6 x 0.4 x 0.4 cm). The margin is inked CENTER blue. The tissue is bisected and entirely submitted i n A1. LABORATORY SERVICES SHENG VAUGHN(ASCP) 01/24/2021 16:07 Performing Lab [facility] LAB [facility] LABORATORY SERVICES Scanned Images [facility] LABORATORY SERVICES Specimen Tissue - Skin (tissue) specimen (specime n) Performing Organization Address City/State/ZIP Code Phon e Number [facility] [address] [place] [address] SERVICES documented in this encounter Visit Diagnoses Diagnosis Encounter for other general examination documented in this encounter Care Teams Pricing Actuary Relationship Specialty Start Date End Date Astrid Neil MD PCP - General 01/23/[address] [place] [address] [place], [place] [address] documented as of this encounter
--- OUTSIDE RECORDS SUMMARY | 2022-06-08 01:23 | XMS_ITS | Encounter Summary ---
:1935 Author Organization [facility] [place] [address] Care Team Providers Name Role Phone Caroline Greenberg APRN Primary Care Provider Reason for Visit Reason Comments Procedure Wet AMD OU Encounter Details Date Type Department Care Team Description 08/04/2021 Procedure visit Ophthalmology at Lalit Willoughby Exudati ve age-related [facility] NMD macular degeneration of [facility] both eyes with active Drive [address] lopez [place], [place] OPHTHALMOLOGY neovasculariza tion [address] DEPT [phone] [place] [address] Social History Tobacco Use Types Packs/Day Years Used Date Former Smoker Quit: 1966 Smokeless Tobacco: Former User Alcohol Use Standard Drinks/Week Comments Yes 0 (1 standard drink = 0.6 oz pure alcoho l) Sex Assigned at Date Recorded Not on file documented as of this encounter Patient Instructions Patient InstructionsShweta Cavazos COA - 08/04/2021 12:45 PM EDT Today you had your right eye(s) injected with a medication called Avastin. [...] about driving: We always recommend having a flag car driver on the day you get an [...] Normal and Not Expected side effects: Call [phone] (Eye Clinic) DAY or NIGHT, HOLIDAY or [...] encounter Progress Notes Lalit Willoughby MD - 08/04/2021 12:45 PM EDT ASSESSMENT: 1. Exudative age-related macular degeneration of both eyes with active choroidal neovascularization 4-5 weeks Avastin OD MSO only. PLAN: Follow up as scheduled: 4-5 weeks DFE/OCT. Re-eval with planned Avastin OU. FV + MSO. DFE in procedure room [place]. Lalit Willoughby MD documented in this encounter Plan of Treatment Upcoming Encounters Date Type Specialty Care Team Description 07/23/2022 Office Visit Ophthalmology aLlit Willoughby MD [facility] DR OPHTHALMOLOGY [place], [place] [address] (Wo rk) documented as of this encounter Procedures Procedure Name Priority Date/Time Associated Diagnosis Comme nts INTRAVITREAL Routine 08/04/2021 1:30 Exudative age-related Res ults for INJECTION PM EDT macular degeneration of this procedure PHARMACOLOGIC AGENT both eyes with active are in the - OD - RIGHT EYE choroidal results neovascularization section. documented in this encounter Results Intravitreal Injection Pharmacologic Agent - OD - Right Eye (08/04/2021 1:30 PM EDT) Anatomical Region Laterality Modality Other Specimen (Source) Anatomical Location Collection Method / Collectio n Time Received Time / Laterality Volume Narrative 08/04/2021 1:30 PM EDT Pre Operative Diagnosis: Age-related Exudative Macular Degenerat ion with Choroidal neovascularization Post Operative Diagnosis: Age-related Exudative Macular Degenerat ion with Choroidal neovascularization Procedure: Intravitreal injection of Christi stin 1.25 mg right eye Assist: Wood Pattern Maker Anesthesia: Topical proparacaine and top ical 4% lidocaine Complications: None Procedure: The patient was taken to the minor treat ment suite where the patient was reidentified using name and birthdate as critical identifiers. The correct eye as the operative site was reidentifi ed by preplaced site donnie, and the consent form was actively reviewed by mauricio tracey clinical services assistant and the surgeon. The right eye was prepped including inst illation of Betadine 5% into the right cul de sac for 5 minutes, facial p rep with ophthalmic Betadine, placement of a lid speculum. The Surgeon performed hand washing preop eratively, used gloves, and wore a face mask or used no talking technique during the procedure, as did the surgical assistant certified. After topical anesthesia of the injectio n [...] call the Eye Clinic or Eye Doctor electronic assembly, should they devel op pain in the [...] Date Dose Rate Site BEVACizumab (Avastin) Given 08/04/2021 1:45 PM EDT 1.25 mg Right Eye ophthalmic injection 1.25 mg 1.25 mg, Intravitreal, ONCE, 1 dose, On Sat08/04/21 at 1345, For ophthalmic use only. Syringe contains 0.1 mL of overfill , Routine documented in this encounter Care Teams Tube Sizer And Cutter Operator Relationship Specialty Start Date End Date Caroline Greenberg APRN PCP - General Family Medicine 06/16/[address] [place] [address] documented as of this encounter
--- OUTSIDE RECORDS SUMMARY | 2022-06-08 01:23 | XMS_ITS | Encounter Summary ---
:1935 Author Organization [facility] [place] [address] Care Team Providers Name Role Phone Caroline Greenberg APRN Primary Care Provider Reason for Visit Reason Comments Procedure Encounter Details Date Type Department Care Team Description 04/28/2021 Procedure visit Ophthalmology at Lalit Willoughby Exudati ve age-related [facility] NMD macular degeneration of [facility] both eyes with active Drive [address] lopez [place], [place] OPHTHALMOLOGY neovasculariza tion [address] DEPT [phone] [place] [address] Social History Tobacco Use Types Packs/Day Years Used Date Former Smoker Smokeless Tobacco: Former User Alcohol Use Standard Drinks/Week Comments Yes 0 (1 standard drink = 0.6 oz pure alcoho l) Sex Assigned at Date Recorded Not on file documented as of this encounter Patient Instructions Patient InstructionsPadmaja Calderon N - 04/28/2021 8:30 AM EDT Today you had your right [...] about driving: We always recommend having a local owner operator truck driver on the day you get [...] Normal and Not Expected side effects: Call [phone] (Eye Clinic) DAY or NIGHT, HOLIDAY or [...] encounter Progress Notes Lalit Willoughby MD - 04/28/2021 8:30 AM EDT ASSESSMENT: 1. Exudative age-related macular degeneration of both eyes with active choroidal neovascularization MSO only Avastin OD # 1. PLAN: Follow up as scheduled: 4-5 weeks Avastin OD MSO only 4-5 weeks Avastin OU (Both eyes) MSO only. 4-5 weeks Avastin OD MSO only. 4-5 weeks DFE/OCT. Re-eval with planned Avastin OU. FV + MSO. Sooner PRN Lalit Dupree. MD Case documented in this encounter Plan of Treatment Upcoming Encounters Date Type Specialty Care Team Description 07/23/2022 Office Visit Ophthalmology Lalit Willoughby MD [facility] OPHTHALMOLOGY [place], [place] [address] (Wo rk) documented as of this encounter Procedures Procedure Name Priority Date/Time Associated Diagnosis Comme nts INTRAVITREAL Routine 04/28/2021 9:11 Exudative age-related Res ults for INJECTION AM EDT macular degeneration of this procedure PHARMACOLOGIC AGENT both eyes with active are in the - OD - RIGHT EYE choroidal results neovascularization section. documented in this encounter Results Intravitreal Injection Pharmacologic Agent - OD - Right Eye (04/28/2021 9:11 AM EDT) Anatomical Region Laterality Modality Other Specimen (Source) Anatomical Location Collection Method / Collectio n Time Received Time / Laterality Volume Narrative 04/28/2021 9:11 AM EDT Pre Operative Diagnosis: Age-related Exudative Macular Degenerat ion with Choroidal neovascularization Post Operative Diagnosis: Age-related Exudative Macular Degenerat ion with Choroidal neovascularization Procedure: Intravitreal injection of Christi stin 1.25 mg right eye Assist: Transition Mgr Rn Anesthesia: Topical proparacaine and top ical 4% lidocaine Complications: None Procedure: The patient was taken to the minor treat ment suite where the patient was reidentified using name and birthdate as critical identifiers. The correct eye as the operative site was reidentifi ed by preplaced site donnie, and the consent form was actively reviewed by mauricio e audiology assistant and the surgeon. The right eye was prepped including inst illation of Betadine 5% into the right cul de sac for 5 minutes, facial p rep with ophthalmic Betadine, placement of a lid speculum. The Surgeon performed hand washing preop eratively, used gloves, and wore a face mask or used no talking technique during the procedure, as did the surgical garment assembly supervisor. After topical anesthesia of the injectio n [...] call the Eye Clinic or Eye Doctor preschool education director, should they devel op pain in the [...] Date Dose Rate Site BEVACizumab (Avastin) Given 04/28/2021 9:30 AM EDT 1.25 mg Right Eye ophthalmic injection 1.25 mg 1.25 mg, Intravitreal, ONCE, 1 dose, On Sat04/28/21 at 0930, For ophthalmic use only. Syringe contains 0.1 mL of overfill , Routine documented in this encounter Care Teams Test Driver Relationship Specialty Start Date End Date Caroline Greenberg APRN PCP - General Family Medicine 06/16/[address] [place] [address] documented as of this encounter
--- OUTSIDE RECORDS SUMMARY | 2022-06-08 01:23 | XMS_ITS | Encounter Summary ---
:1935 Author Organization [facility] Address [address] [place] [address] Care Team Providers Name Role Phone Dionicio Caroline Collin MENARD Primary Care Provider Reason for Visit Reason Comments Procedure Macular Degeneration Encounter Details Date Type Department Care Team Description 07/16/2020 Procedure visit Ophthalmology at Lalit Willoughby Exudati ve age-related [facility] NMD macular degeneration of [facility] left eye with active [address] [address] [place]ohn [place] OPHTHALMOLOGY neovascular[place] tion [address] DEPT [phone] [place] [address] Social History Tobacco Use Types Packs/Day Years Used Date Former Smoker Smokeless Tobacco: Former User Sex Assigned at Date Recorded Not on file documented as of this encounter Patient Instructions Patient Christine Woodruff - 07/16/2020 9:45 AM EDT Today you had your left [...] Normal and Not Expected side effects: Call [phone] (Eye Clinic) DAY or NIGHT, HOLIDAY or [...] encounter Progress Notes Lalit Willoughby MD - 07/16/2020 9:45 AM EDT ASSESSMENT: 1. Exudative age-related macular degeneration of left eye with active choroidal neovascularization Avastin # 1 OS for new Wet AMD PLAN: Follow up as scheduled: 4-6 weeks Avastin OS #2/3 MSO only 4-6 weeks Avastin OS #3/3 MSO only 4-6 weeks for Re-eval FV+MSO with DFE/OCT, Planned Avastin OS Lalit Dupree. MD Case documented in this encounter Plan of Treatment Upcoming Encounters Date Type Specialty Care Team Description 07/23/2022 Office Visit Ophthalmology Lalit Willoughby MD [facility] OPHTHALMOLOGY [place] [address] (Wo rk) documented as of this encounter Procedures Procedure Name Priority Date/Time Associated Diagnosis Comme nts INTRAVITREAL Routine 07/16/2020 10:59 Exudative age-related Re sults for INJECTION AM EDT macular degeneration of this procedure PHARMACOLOGIC AGENT left eye with active are in the - OS - LEFT EYE choroidal results neovascularization section. documented in this encounter Results Intravitreal Injection Pharmacologic Agent - OS - Left Eye (07/16/2020 10:59 AM EDT) Anatomical Region Laterality Modality Other Specimen (Source) Anatomical Location Collection Method / Collectio n Time Received Time / Laterality Volume Narrative 07/16/2020 10:59 AM EDT Pre Operative Diagnosis: Age-related Exudative Macular Degenerati on with Choroidal Neovascularization Post Operative Diagnosis: Age-related Exudative Macular Degenerati on with Choroidal Neovascularization Procedure: Intravitreal injection of Christi stin 1.25 mg left eye Assist: Shellfish Harvester Anesthesia: Topical Proparacaine and Top ical 4% Lidocaine Complications: None Procedure: The patient was taken to the minor treat ment suite where the patient was reidentified using name and birthdate as critical identifiers. The correct eye as the operative site was reidentifi ed by preplaced site donnie, and the consent form was actively reviewed by mauricio tracey assistant director of security and the surgeon. The left eye was [...] call the Eye Clinic or Eye Doctor pollution control technician, should the y develop pain in the [...] Date Dose Rate Site BEVACizumab (AVASTIN) Given 07/16/2020 11:15 AM EDT 1.25 mg Left Eye ophthalmic injection 1.25 mg 1.25 mg, Intravitreal, ONCE, 1 dose, On 07/16/20 at 1115, For ophthalmic use only. Syringe contains 0.1 mL of overfill , Routine documented in this encounter Care Teams Posting Machine Operator Relationship Specialty Start Date End Date Caroline Greenberg APRN PCP - General Family Medicine 06/16/[address] [place] [address] documented as of this encounter
--- OUTSIDE RECORDS SUMMARY | 2022-06-08 01:23 | XMS_ITS | Encounter Summary ---
:1935 Author Organization [facility] Address [address] [place] [address] Care Team Providers Name Role Phone Unavailable Primary Care Provider Unavailable Encounter Details Date Type Department Care Team Description 01/18/2012 Results Only [facility] Case Florez , Laboratory Services - [address] KIM BELTRAN [address] [place] [address] [place], [place] [address] [phone] Social History Tobacco Use Types Packs/Day Years Used Date Never Assessed Sex Assigned at Date Recorded Not on file documented as of this encounter Plan of Treatment Not on filedocumented as of this encounter Procedures Procedure Name Priority Date/Time Associated Diagnosis Comme [facility] SURGICAL PATHOLOGY Routine 01/18/2012 0:00 EST Re sults for this procedure are i n the results section. documented in this encounter Results SURGICAL PATHOLOGY (01/18/2012 0:00 EST) Pathology SURGICAL PATHOLOGY REPORT [facility] Report: Reports generated via electronic interface contain cody ginal data; LAB however they are lacking the format of the original re port. Caution should be taken when reading/interpreting unfo rmatted reports. Name: ? FEDERICO VICTOR TTE ? Accession #: ? [id number] ? : ? 1935 (Age: 76) ??F ? Collect Date: ? 01/18/2012 ? Location: ? [facility] ? Receive Date: ? 012 ? Provider: CASE FLOREZ DO Copy to: PETER GLOVER MD ? Final Pathologic Diagnosis: A. ?Skin of cheek, left upper, punch biop sies: 1. ?Actinic keratosis (2). ?? B. ?Skin of cheek, left lower, punch biop sy: 1. ?Actinic keratosis. Microscopic Description: ? (A, B) The stratum co rneum is thickened by orthohyperkeratosis with foci of parakeratosis. ??The epidermis is focally thicke kelton with elongate and bulbous rete ridges. ??The basal ker atinocytes show a variable degree of atypia including nuclear enlargement, dispola rity, and hyperchromasia. ??The dermis is marked by solar elastosis, vascular ectasia and a lymphohistiocy tic infiltrate. ??(Dr. Corral)/[facility] Document reviewed and electronically signed by: ADA CORRAL MD Report ??Date: 01/22/2012 16:48 By the signature above, the attending physician certif ies that he/she has personally conducted a gross and/or microscopic examin ation of the described specimens and rendered or confirmed the above diagnosi s. Specimen(s) Received: ? Lesions left cheek A. ?Punch biopsy upper lesion (#1) B. ? Punch biopsy lower lesion (#2) Clinical History: ? Not listed Gross Description: ? Received in formalin labelled Aziza Valenzuela and punch bx upper lesion ??1 are two circular punch biopsies of jimenez-white skin averaging 0.2 cm in diameter and 0.2 cm in thickness. ??The specimen is entirely submitted as (A). Received in formalin labelled Yasmin Victor te and punch bx lower lesion 2 is a circular punch biops y of jimenez-white skin measuring 0.2 cm in diameter and 0.1 cm in thickness. ??The s pecimen is submitted intact as (B). ?? (Zo Coley)/[facility] End of Report Specimen Performing Organization Address City/State/ZIP Code Phon e Number [facility] [address] [place] [address] SERVICES [facility] [address] [place] [address] documented in this encounter Visit Diagnoses Not on filedocumented in this encounter
--- OUTSIDE RECORDS SUMMARY | 2022-06-08 01:23 | XMS_ITS | Encounter Summary ---
:1935 [place] [address] Care Team Providers Name Role Phone Caroline Greenberg APRN Primary Care Provider Encounter Details Date Type Department Care Team Description 04/02/2022 Telephone Ophthalmology at [facility] Agata Saldana MD [facility] [place] [address] OPHTHALMOLOGY [phone] [place], [place] [address] (Wo rk) Social History Tobacco [...] Office Visit Ophthalmology Lalit Willoughby MD [facility] DR OPHTHALMOLOGY DE PT [place], [place] [address] (Wo rk) documented as of this encounter Visit Diagnoses Not on filedocumented in this encounter Care Teams Wood Setter Relationship Specialty Start Date End Date Caroline Greenberg APRN PCP - General Family Medicine 06/16/[address] [place] [address] documented as of this encounter
--- OUTSIDE RECORDS SUMMARY | 2022-06-08 01:23 | XMS_ITS | Clinical Summary ---
:1935 Author Organization [facility] [place] [address] Care Team Providers Name Role Phone Caroline Greenberg APRN Primary Care Provider Allergies Active Allergy Reactions Severity Noted Date Comments Codeine Phosphate loopy Escitalopram Oxalate Medium 06/08/2021 Other r eaction(s): DIDN'T LIKE THE WAY IT MADE HER FEEL Simvastatin Medium 06/08/2021 Other reaction( s): myalgia and genia h Sulfa (Sulfonamide Antibiotics) Medications Medication Sig Dispensed Refills Start Date End Date Status polyethylene glycol 0 11/14/2010 Active (MIRALAX) 17 gram packet ACETAMINOPHEN (TYLENOL 0 11/14/2010 Active ORAL) warfarin (COUMADIN) 5 Take 5 mg by 0 Active mg tablet mouth daily. 4 days weekly patient takes 1 tablet; all other days of the week patient takes 2.5 mg. levothyroxine Take 50 mcg by 0 A ctive (SYNTHROID) 50 mcg mouth daily. tablet buPROPion SR TK 1 T PO QD 0 05/10/2020 Act daniel (Wellbutrin SR) 100 mg tablet sustained-release 12 hr losartan (COZAAR) 100 TAKE ONE TABLET 0 05/17/2020 Active mg Tablet BY MOUTH DAILY amLODIPine (Norvasc) TK 1 T PO D 0 05/17/2020 Active 2.5 mg Tablet multivitamin Take 1 tablet by 0 Active (THERAGRAN) Tablet mouth daily. vit A/vit C/vit Take by mouth. 0 Active E/zinc/copper (OCUVITE PRESERVISION ORAL) lutein-zeaxanthin 25-5 Take 1 capsule by 0 1 Active mg Capsule mouth. oxygen-air delivery 0 09/12/2013 Active systems (HORIZON NASAL CPAP SYSTEM MISC) Active Problems No known active problems Encounters Date Type Specialty Care Team Description 05/18/2022 Procedure visit Ophthalmology Lalit Willoughby, Exudati ve age-related MD macular degener ation of both eyes with activ e choroidal neovascularizat ion 05/18/2022 Telephone [facility] Holly Garcia Triage RN 04/02/2022 Procedure visit Ophthalmology Lalit Willoughby, Exudati ve age-related MD macular degener ation of both eyes with activ e choroidal neovascularizat ion 04/02/2022 Telephone Ophthalmology Agata Wallis MD from Last 3 Months Immunizations Name Administration Dates Next Due Hepatitis A Vaccine, unspecified formulation 07/03/2006, Influenza Vaccine, Whole 08/30/2005 Td, adult 07/03/2006, 11/11/1995 Family History Medical History Relation Comments Cancer Maternal Uncle Macular Degeneration Mother Amblyopia Neg Hx Diabetes Neg Hx Glaucoma Neg Hx Thyroid Disease Neg Hx Relation Status Comments Maternal Uncle Mother Social History Tobacco Use Types Packs/Day Years Used Date Former Smoker Quit: 1967 Smokeless Tobacco: Former User Alcohol Use Standard Drinks/Week Comments Yes 0 (1 standard drink = 0.6 oz pure alcoho l) Sex Assigned at Date Recorded Not on file Last Filed Vital Signs Vital Sign Reading Time Taken Comments Blood Pressure 112/60 04/21/2015 1:24 PM EDT Pulse 80 04/21/2015 1:24 PM EDT Temperature - - Respiratory Rate - - Oxygen Saturation 97% 04/21/2015 1:24 PM EDT Inhaled Oxygen Concentration - - Weight 77.6 kg (171 lb) 04/21/2015 1:24 PM EDT Height 167.6 cm (5' 6) 04/21/2015 1:24 PM EDT Body Mass Index 27.6 04/21/2015 1:24 PM EDT Plan of Treatment Upcoming Encounters Date Type Specialty Care Team Description 07/23/2022 Office Visit Ophthalmology Lalit Willoughby MD [facility] OPHTHALMOLOGY [place], [place] [address] (Wo rk) Health Maintenance Due Date Last Done Comments Covid-19 Vaccine (#1) 1942 Tdap adult 1956 Zoster vaccine (1 of 2) 1987 Bone Density Scan 2002 Pneumoccocal Vaccine: 65+ (1 - PCV) 2002 Tetanus vaccine 07/03/2016 07/03/2006, 11/11/1995 Influenza (Flu) vaccine (1 of 1 - 07/12/2022 08/30/2005 Influenza standard series) Procedures Procedure Name Priority Date/Time Associated Diagnosis Comme nts INTRAVITREAL Routine 05/18/2022 3:36 Exudative age-related Res ults for INJECTION PM EDT macular degeneration of this procedure PHARMACOLOGIC AGENT both eyes with active are in the AMB - OU - BOTH EYES choroidal results neovascularization section. INTRAVITREAL Routine 04/02/2022 3:26 Exudative age-related Res ults for INJECTION PM EDT macular degeneration of this procedure PHARMACOLOGIC AGENT both eyes with active are in the AMB - OU - BOTH EYES choroidal results neovascularization section. from Last 3 Months Results Intravitreal Injection of Pharmacologic Agent - [...] Christi stin 1.25 mg left eye Assist: Casting Operator Anesthesia: Topical Proparacaine and Top ical 4% Lidocaine Complications: None Procedure: The patient was taken to the minor treat ment suite where the patient was reidentified using name and birthdate as critical identifiers. The correct eye as the operative site was reidentifi ed by preplaced site donnie, and the consent form was actively reviewed by mauricio tracey store assistant and the surgeon. The left eye was prepped including insti llation of Betadine 5% into the left cul de sac for 5 minutes, facial pr ep with ophthalmic Betadyie and placement of a lid speculum. The Surgeon performed hand washing preop eratively, used gloves, and wore a face mask or used no talking technique during the procedure, as did the surgical orderly. After topical anesthesia of the injectio n [...] call the Eye Clinic or Eye Doctor apple solutions consultant, should the y develop pain in the treated eye, increasing redness or a discharge from t he eye. Condition on Discharge: Stable. 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 The correct eye as the operative site was reidentifi ed by preplaced site donnie, and the consent form was actively reviewed by mauricio tracey store assistant and the surgeon. The right eye was prepped including inst illation of Betadine 5% into the right cul de sac for 5 minutes, facial p rep with ophthalmic Betadine, placement of a lid speculum. The Surgeon performed hand washing preop eratively, used gloves, and wore a face mask or used no talking technique during the procedure, as did the surgical orderly. After topical anesthesia of the injectio n [...] call the Eye Clinic or Eye Doctor apple solutions consultant, should they devel op pain in the treated eye, increasing redness or a discharge from t he eye. Condition on Discharge: Stable. Lalit Willoughby MD OPHTHALMOLOGY SERVICES ORDER ROWENA Intravitreal Injection of Pharmacologic Agent - OU [...] Christi stin 1.25 mg left eye Assist: Casting Operator Anesthesia: Topical Proparacaine and Top ical 4% Lidocaine Complications: None Procedure: The patient was taken to the minor treat ment suite where the patient was reidentified using name and birthdate as critical identifiers. The correct eye as the operative site was reidentifi ed by preplaced site donnie, and the consent form was actively reviewed by mauricio tracey store assistant and the surgeon. The left eye was prepped including insti llation of Betadine 5% into the left cul de sac for 5 minutes, facial pr ep with ophthalmic Betadyie and placement of a lid speculum. The Surgeon performed hand washing preop eratively, used gloves, and wore a face mask or used no talking technique during the procedure, as did the surgical orderly. After topical anesthesia of the injectio n [...] call the Eye Clinic or Eye Doctor apple solutions consultant, should the y develop pain in the treated eye, increasing redness or a discharge from t he eye. Condition on Discharge: Stable. 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 The correct eye as the operative site was reidentifi ed by preplaced site donnie, and the consent form was actively reviewed by mauricio tracey store assistant and the surgeon. The right eye was prepped including inst illation of Betadine 5% into the right cul de sac for 5 minutes, facial p rep with ophthalmic Betadine, placement of a lid speculum. The Surgeon performed hand washing preop eratively, used gloves, and wore a face mask or used no talking technique during the procedure, as did the surgical orderly. After topical anesthesia of the injectio n [...] call the Eye Clinic or Eye Doctor apple solutions consultant, should they devel op pain in the treated eye, increasing redness or a discharge from t he eye. Condition on Discharge: Stable. Lalit Willoughby MD OPHTHALMOLOGY SERVICES ORDER ROWENA from Last 3 Months Insurance Payer Benefit Plan / Subscriber ID Effective Phone Address T ype Group Dates MEDICARE MEDICARE PART A [id number] 2002-Prese [phone] [place] [address] AARP SUPPLEMENT AARP SUPPLEMENT [id number] 2017-Prese [address] [place] [address] (Home) [place] [address] Advance Directives Documents on File Type Date Recorded Patient Switchboard Operator Receptionist Explanati on Advance Directives and Living 01/10/2011 10:25 AM Will Care Teams Supervisor Scouring Pads Relationship Specialty Start Date End Date Caroline Greenberg, ELECTRICAL PROSPECTOR PCP - General Family Medicine 06/16/[address] [place] [address]
--- OUTSIDE RECORDS SUMMARY | 2022-06-08 01:24 | XMS_ITS | Encounter Summary ---
:1935 Author Organization [facility] [place] [address] Care Team Providers Name Role Phone Unknown Primary Care Provider Unavailable Encounter Details Date Type Department Care Team Description 11/14/2010 Follow-Up Sleep Medicine Liz Greenwood, [facility] Alexia marquez APRN [place], [place] [id number] [place] [address] PSYCHIATRY DEPT. [place] [id number] (Wo rk) Social History Tobacco Use Types Packs/Day Years Used Date Never Assessed Sex Assigned at Date Recorded Not on file documented as of this encounter Plan of Treatment Upcoming Encounters Date Type Specialty Care Team Description 07/23/2022 Office Visit Ophthalmology Lalit Willoughby MD [facility] OPHTHALMOLOGY DE PT [place], [place] [address] (Wo rk) documented as of this encounter Visit Diagnoses Not on filedocumented in this encounter Care Teams Lift Truck Operator Relationship Specialty Start Date End Date Unknown PCP - General 10/03/10 06/15/20 None documented as of this encounter
--- OUTSIDE RECORDS SUMMARY | 2022-06-08 01:24 | XMS_ITS | Encounter Summary ---
:1935 Author Organization [facility] Address [address] [place] [address] Care Team Providers Name Role Phone Unknown Primary Care Provider Unavailable Reason for Visit Reason Onset Date Comments Other 08/14/2013 Encounter Details Date Type Department Care Team Description 08/14/[facility] [facility] F[facility] M, ENGINE INSPECTOR Other [address] [place] [address] [phone] Social History Tobacco Use Types Packs/Day Years Used Date Former Smoker Sex Assigned at Date Recorded Not on file documented as of this encounter Miscellaneous Notes Telephone Encounter - Alley Aguilar - 08/14/2013 11:08 AM EDT PT called to request an rx for a new humidifier for her machine. Please write to [facility], thank-you! documented in this encounter Plan of Treatment Upcoming Encounters Date Type Specialty Care Team Description 07/23/2022 Office Visit Ophthalmology Lalit Willoughby MD [facility] OPHTHALMOLOGY DE PT [place], [place] [address] (Wo rk) documented as of this encounter Visit Diagnoses Diagnosis CARSON on CPAP Obstructive sleep apnea (adult) (pediatr ic) documented in this encounter Care Teams Setter Helper Relationship Specialty Start Date End Date Unknown PCP - General 10/03/10 06/15/20 None documented as of this encounter
--- OUTSIDE RECORDS SUMMARY | 2022-06-08 01:24 | XMS_ITS | Encounter Summary ---
:1935 Author Organization [facility] [place] [address] Care Team Providers Name Role Phone Unknown Primary Care Provider Unavailable Reason for Visit Reason Comments Obstructive Sleep Apnea Encounter Details Date Type Department Care Team Description 01/08/2013 [facility]SON on CPAP ([address] HAIR DRESSER Dx) [address] [place] [address] [phone] Social History Tobacco Use Types Packs/Day Years Used Date Former Smoker Sex Assigned at Date Recorded Not on file documented as of this encounter Last Filed Vital Signs Vital Sign Reading Time Taken Comments Blood Pressure 114/66 01/08/2013 2:17 PM EST Pulse 81 01/08/2013 2:17 PM EST Temperature - - Respiratory Rate - - Oxygen Saturation 97% 01/08/2013 2:17 PM EST Inhaled Oxygen Concentration - - Weight 80.1 kg (176 lb 9.6 oz) 01/08/2013 2:17 PM EST Height 162.6 cm (5' 4) 01/08/2013 2:17 PM EST Body Mass Index 30.31 01/08/2013 2:17 PM EST documented in this encounter Progress Notes Freya Garcia, HAIR DRESSER - 01/08/2013 2:19 PM EST Sleep Medicine Clinical Health Specialist Follow-Up Note HPI: Ms. Aziza Victor is a 77 y.o. female seen for follow-up of obstructive sleep apnea. Patient presents today for routine follow-up in CPAP clinic: Diagnostic Sleep Study date: 01/16/10 AHI: 41 per hour Minimum saturation: 80% Treatment: CPAP Pressure: 10 cwp Interface: Nasal mask-small Fit: Ok-its as good as it gets Chin strap: No Humidifier Setting: Passive Patient perceived outcome: Patient reports the CPAP experience is: Patient continues to appreciate CPAP for providing improvement in the quality of rest and energy. Ongoing Snoring: Not aware Mouth Breathing: No Dry Mouth: Yes Nocturnal Gasping: No Headaches upon wakening: No ROS: ENT: Nasal Obstruction: CONSTITUTIONAL: Weight: Stable Sleep Pattern: Typically to bed varies from 9-1030 pm. Pt. will affix mask when she is ready for sleep. Sleep position is supine and lateral. Patient does not wake during the night . Pt. rises around 530-545 am feeling wide awake . Daytime Symptoms: [place]: N/A Naps: No Involuntary Dozing: Rarely Driving: Does not report any sleepiness when driving Close calls related to sleepiness: No Accidents related to sleepiness: No Compliance Card Data: Date Range: 11/26/11-01/07/13 Settin cwp Residual AHI: 0.3 Vibratory Snore Index: 0.6 % Night in Large Leak: 0 Average usage days used-Hours: 5 hr 35 min # Days of usage: 396/409 % Days used > 4 hours 83%. Total % Days used 97% Health Changes since last Sleep Medicine Visit: N/A Physical Exam: Blood pressure: 114/66 Weight: 176 lbs. Other: Pulse 81 Assessment Ms. Aziza Victor is a 77 y.o. female seen for obstructive sleep apnea. Patients card data download shows pt. is using her CPAP routinely. Pt's AHI, VS and Leak appear to be well controlled with the current pressure setting of 10 cw. Humidifier/water chamber function/rational and settings was reviewed with patient at length. Mask fit/assembly also was reviewed with the patient along with supply replacement. RTC in one year. Time spent face to face: 30 Min. Time spent devoted to counseling and discussion: 15 Min. Recomendations: 1) CPAP 10 cw with ramp. Humidity setting passive. 2) Follow-up: RTC one year/PRN. 3) Driving safety discussed, recommend pt. not drive if drowsy, if drowsy while driving to pull overand take a nap. 4) Continue with CPAP therapy as prescribed. The patient indicates understanding of these issues and agrees with the plan. documented in this encounter Plan of Treatment Upcoming Encounters Date Type Specialty Care Team Description 07/23/2022 Office Visit Ophthalmology Lalit Willoughby MD [facility] [address] OPHTHALMOLOGY [place], [place] [address] (Wo rk) documented as of this encounter Visit Diagnoses Diagnosis CARSON on CPAP - Primary Obstructive sleep apnea (adult) (pediatr ic) documented in this encounter Care Teams Ob/Gyn Nurse Relationship Specialty Start Date End Date Unknown PCP - General 10/03/10 06/15/20 None documented as of this encounter
--- OUTSIDE RECORDS SUMMARY | 2022-06-08 01:24 | XMS_ITS | Encounter Summary ---
:1935 Author Organization [facility] [place] [address] Care Team Providers Name Role Phone Unknown Primary Care Provider Unavailable Reason for Visit Reason Comments Obstructive Sleep Apnea Encounter Details Date Type Department Care Team Description 01/08/2014 Follow-Up Sleep Center at [facility], CARSON on CPAP ([address] BUTTER GRADER Dx) [address] [place] [address] [phone] Social History Tobacco Use Types Packs/Day Years Used Date Former Smoker Sex Assigned at Date Recorded Not on file documented as of this encounter Last Filed Vital Signs Vital Sign Reading Time Taken Comments Blood Pressure 158/84 01/08/2014 11:13 AM EST Pulse 74 01/08/2014 11:13 AM EST Temperature - - Respiratory Rate - - Oxygen Saturation - - Inhaled Oxygen Concentration - - Weight 79.8 kg (176 lb) 01/08/2014 11:13 AM EST Height - - Body Mass Index 30.21 01/08/2013 2:17 PM EST documented in this encounter Progress Notes Jaquan Sanford MD - 01/19/2014 11:50 AM EDT I have reviewed Carolin Garcia CRT's note and agree with the assessment and recommendations. I did not see the patient during this encounter. JAQUAN SANFORD MD [facility] Garcia, BUTTER GRADER - 01/08/2014 10:53 AM EST Sleep Medicine Clinical Health Specialist Brief Follow-Up Note HPI: Ms. Aziza Victor is a 78 y.o. female seen for follow-up of obstructive sleep apnea. Patient presents today for follow-up in PAP clinic: Sleep Study: 01/16/10 AHI: 41/hr Sp02: 80% Treatment: CPAP Pressure: 10 cm Interface: Nasal mask Fit: ok Chin strap: no Humidifier Settin Snoring: no Dry Mouth: occsaionally Mouth Breathing: occasionally Patient Perceived Outcome: Patient reports she is still sneezing. She continues to have good qualitysleep and no daytime fatigue. Daytime Symptoms: [place]: incomplete Naps: no Involuntary Dozing: no Driving: Not sleepy when driving ROS: ENT: Nasal Obstruction: Constantly blowing her nose Constitutional: Weight stable Sleep Pattern: Bedtime: 930-10 pm, watches TV for 30-60 min then affixes the mask and is asleep promptly. Wake time: 5-530 am Awakenings: Nocturia-never Compliance Card Data: Date Range: 07/12-01/07/14 Settin cm Residual AHI: 0.1 Vibratory Snore Index: 1.3 % Night in Large Leak: 0 Average usage days used-Hours: 6 hr # Days of usage: 180/180 % Days used > 4 hours 90%. Total % Days used 100% Physical Exam: Respirations: Even and not labored at rest DERM: Skin Irritation none Filed Vitals: 01/08/14 1113 BP: 158/84 Pulse: 74 Weight: 79.833 kg (176 lb) Assessment Ms. Aziza Victor is a 78 y.o. female seen for obstructive sleep apnea. Patients card data shows patient is using CPAP routinely. Patients AHI, VSI and Leak appear to be well treated with the current pressure. She continues to have benefit from CPAP for providing improvement in her quality of sleep and daytime rest. Humidifier/Heater function/rational and settings were reviewed with the patient- we discussed the rationale with using heated humidity. To target her sneezing and runny nose I have asked that she increase the HH. Mask fit/assembly also was reviewed with the patient along with supply replacement-yes Time spent face to face: 30 Min. Recomendations: 1) CPAP 10 cm cw with ramp. Humidity setting-will increase 4-5. 2) Follow-up: RTC one year/PRN with Carolin 3) Driving safety discussed, recommend patient not drive if drowsy, if drowsy while driving to pulley maintainer and take a nap. The patient indicates understanding of these issues and agrees with the plan. documented in this encounter Plan of Treatment Upcoming Encounters Date Type Specialty Care Team Description 07/23/2022 Office Visit Ophthalmology Lalit Willoughby MD [facility] OPHTHALMOLOGY [place], [place] [address] (Wo rk) documented as of this encounter Visit Diagnoses Diagnosis CARSON on CPAP - Primary Obstructive sleep apnea (adult) (pediatr ic) documented in this encounter Care Teams Summer Associate Relationship Specialty Start Date End Date Unknown PCP - General 10/03/10 06/15/20 None documented as of this encounter
--- OUTSIDE RECORDS SUMMARY | 2022-06-08 01:24 | XMS_ITS | Encounter Summary ---
:1935 Author Organization [place] [address] Care Team Providers Name Role Phone Unknown Primary Care Provider Unavailable Encounter Details Date Type Department Care Team Description 09/16/2018 Hospital Encounter Laboratory [facility] [place] [address] Social History Tobacco Use Types Packs/Day [...] 07/23/2022 Office Visit Ophthalmology Lalit Willoughby MD [facility] OPHTHALMOLOGY [place], [place] [address] (Wo rk) documented as of this encounter Procedures Procedure Name Priority Date/Time Associated Diagnosis Comme nts SURGICAL PATHOLOGY Routine 09/16/2018 3:20 PM Res ults for this REPORT EST procedure are i n the results section. documented in this encounter Results Surgical Pathology Report (09/16/2018 3:20 PM EST) Component Value Ref Test Analysis Performed At [facility] gist Range Method Time Signature Surgical [id number] ? Location: [facility] Pathology OLIVE BRANCH Report The signing pathologist has (i) examined the relevant preparation(s) for the [facility] specimen(s) and (ii) rendered or confirmed the diagnosis(es) . [facility] . 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, [place], [place] CLINICAL INFORMATION Specimen Submitted: A - Skin, Lt side face - anterior, excision (1) B - Skin, Lt side face - posterior, excision (1) Referring Identifier: ?(not provided) Clinical History and Diagnosis: Nonhealing skin lesion left side of face, history of actinic keratosis SPECIMEN PROCESSING A - Labeled/Fixative: Left side of face anterior, formalin. Quantity/Size: ??Single, 1.6 x 0.6 x 0.3 cm. Tissue Description: Ellipse of centrally nodular, jimenez-white skin. Sections/Processing: Inked, serially sectioned and entirely submitted in 2 nohemy ettes as follows: ? A1: ??Tips ? A2: ??Body B - Labeled/Fixative: Left side face posterior side, formali n. Quantity/Size: ??Single, 1.5 x 0.6 x 0.3 cm. Tissue Description: Ellipse of centrally nodular, jimenez-white skin. Sections/Processing: Inked, serially sectioned and entirely submitted in 2 nohemy ettes as follows: ? B1: ??Tips ? B2: ??Body ??ejr Specimen (Source) Anatomical Collection Method Collection Time Re ceived Time Location / / Volume Laterality 09/16/2018 3:20 PM EST Case Perez DO PATHOLOGY/CYTOLOGY ORDERABL ES Performing Organization Address City/State/ZIP Code Phon e Number [place] [phone] documented in this encounter Visit Diagnoses Not on filedocumented in this encounter Care Teams Supervisor Assembly Relationship Specialty Start Date End Date Unknown PCP - General 10/03/10 06/15/20 None documented as of this encounter
--- OUTSIDE RECORDS SUMMARY | 2022-06-08 01:24 | XMS_ITS | Encounter Summary ---
:1935 [place] [address] Care Team Providers Name Role Phone Unknown Primary Care Provider Unavailable Encounter Details Date Type Department Care Team Description 04/21/2015 Follow-Up Sleep Center at [facility] Jodie Roberts DO CARSON on CPAP [address] [facility] [place] [address] [facility] [phone] [place] [id number] (Wo rk) Social History Tobacco Use Types [...] Mass Index 27.6 04/21/2015 1:24 PM EDT documented in this encounter Progress Notes Jaquan Sanford MD - 04/21/2015 2:11 PM EDT I evaluated Ms. Aziza Victor with Dr. Roberts and performed junior aspects of the history and examination. I actively participated in the formulation of the management strategy. I have reviewed Dr. Roberts's note and agree with the assessment and recommendations. Continues to do well. No changes. Follow up 1 year. Jaquan Sanford MD Jodie Roberts DO - 04/21/2015 1:49 PM EDT Sleep Medicine Follow-Up Note HPI: Ms. Aziza Victor is a 79 y.o. female seen at for follow-up regarding obstructive sleep apnea. The patient was initially diagnosed with a severe CARSON with an AHI of 41/hr and SvO2 jatin of 80% in 2009. Since the patient underwent CPAP titration trial she continues to utilize CPAP treatment with pressure at 10 cmH2O. The patient getting benefits from being on CPAP treatment with well controlled day and night time symptoms of CARSON. The patient recently got a new CPAP unit from [facility] so, she is presented today to evaluate compliance with CPAP as well as clinical response to CPAP treatment.The patient is getting through difficult time in her life. Her was diagnosed and currently progressing with Alzheimer's disease. She is his 03/06 process eng with all ensuing from this situation emotional and psychological consequences. She is stressed out and fatigued at the same time ,and she still remaines to be devoted to her sick . The patient reports her sleep becomes periodically fragmented with prolonged awakenings which sheattributes to insomnia due to stressful condition. If she sleeps 6 hrs or longer ( patient sleeps with CPAP only ) she would be well rested and would not have any daytime somnolence and fatigue. Otherwise, If her sleep is insufficient and interrupted with insomnia, she would be somnolent and fatigued during the day. The patient reports she is getting benefits from using CPAP overnight. If no CPAP used she would notsleep through the night at all, she would be tired and somnolent all day long. Again, if the patienthad 6 or more hours of sleep , she would not have any daytime symptoms suggestive of uncontrolled CARSON. The patient is very pleased with CPAP treatment outcome. She utilizes nasal mask which is not apparently the perfect one for her but it seems to be the best one among those she tried in the past. Treatment: CPAP Pressure: 10 cmH2O Interface: nasal mask Fit: OK Chin strap: no Patient perceived outcome: please, read above Ongoing Snoring: no Mouth Breathing: occasionally Dry Mouth: ocassionally Nocturnal Gasping: no ROS: ENT: Nasal Obstruction: no CONSTITUTIONAL: Weight: stable Sleep Pattern: 10:30 pm to 5-5:30 am, insomnia 2-3 times /monts Daytime Symptoms: [place]: 2 Naps: occdasionally Involuntary Dozing: no Driving: The patient does report difficulty with sleepiness and driving. Compliance Card Data: Date Range:03/22/2015 - 04/20/2015 Setting: CPAP 10 cmH2O Residual AHI: 0.2/hr Vibratory Snore Index: n/a 95% Night Leak: 10.8 lpm Average usage days used: 30/30 % Days used: 100% % Days with USage > 4 hrs: 87% PE: General: AOx3 not in distress Body mass index is 27.61 kg/(m^2). Filed Vitals: 04/21/15 1324 BP: 112/60 Pulse: 80 Height: 167.6 cm (5' 6) Weight: 77.565 kg (171 lb) SpO2: 97% Pul: Respirations: regula , CTA b/l no w/r/c Waking saturation at rest: 97% Assessment: Ms. Aziza Victor is a 79 y.o. female who is seen for follow- up of obstructive sleep apnea. CARSON appears to be well controlled, given the patient response to treatment with well consolidated and restorative night with no daytime fatigue and hypersomnolence if the patient not having episodes ofinsomnia. Compliance CPAP data indicated good patients compliance with CPAP treatment with % days with usage > 4 hrs at 87%. Respiratory events are well controlled with residual AHI of 0.2/hr with well contained mask airleak. The patient's insomnia is chronic and is related to psychologically stressful environment the patient is currently immersed in with having her sick with progressively deteriorating cognitive condition. The patient does not report any problems with her new CPAP machine and equipment. Reccomendations: 1) Continue treatment with CPAP at 10 cmH2O with nasal mask of her preference. 2) Follow-up in CPAP clinic in 1 year or sooner as needed. The patient indicates understanding of these issues and agrees with the plan. The patient was seen and discussed with Dr. Sanford. Arseniy V. Tsapenko M.D. ( Sleep Medicine Fellow) documented in this encounter Plan of Treatment Upcoming Encounters Date Type Specialty Care Team Description 07/23/2022 Office Visit Ophthalmology Lalit Willoughby MD [facility] OPHTHALMOLOGY [place], [place] [address] (Wo rk) documented as of this encounter Visit Diagnoses Diagnosis CARSON on CPAP Obstructive sleep apnea (adult) (pediatr ic) documented in this encounter Care Teams Search Engine Marketing Manager Relationship Specialty Start Date End Date Unknown PCP - General 10/03/10 06/15/20 None documented as of this encounter
--- OUTSIDE RECORDS SUMMARY | 2022-06-08 01:24 | XMS_ITS | Encounter Summary ---
:1935 Author Organization [facility] [place] [address] Care Team Providers Name Role Phone Unknown Primary Care Provider Unavailable Reason for Visit Reason Comments Obstructive Sleep Apnea Encounter Details Date Type Department Care Team Description 02/02/2015 Follow-Up Sleep Center at [facility] Freya Garcia, HOST/HOSTESS GROUND CARSON on CPAP [address] [place] [address] [phone] Social History Tobacco Use Types Packs/Day Years Used Date Former Smoker Sex Assigned at Date Recorded Not on file documented as of this encounter Last Filed Vital Signs Vital Sign Reading Time Taken Comments Blood Pressure 122/66 02/02/2015 11:03 AM EDT Pulse 70 02/02/2015 11:03 AM EDT Temperature - - Respiratory Rate - - Oxygen Saturation 97% 02/02/2015 11:03 AM EDT Inhaled Oxygen Concentration - - Weight 77.9 kg (171 lb 12.8 oz) 02/02/2015 11:03 AM EDT Height - - Body Mass Index 29.49 01/08/2013 2:17 PM EST documented in this encounter Progress Notes Jaquan Sanford MD - 02/02/2015 1:40 PM EDT I evaluated Ms. Aziza Victor with Carolin Garcia CRT and performed junior aspects of the history andexamination. I actively participated in the formulation of the management strategy. I have reviewed Carolin Garcia CRT's note and agree with the assessment and recommendations. Jaquan Sanford MD [facility]reya Garcia, HOST/HOSTESS GROUND - 02/02/2015 8:20 AM EDT Sleep Medicine Clinical Health Specialist Brief Follow-Up Note HPI: Ms. Aziza Victor is a 79 y.o. female seen for follow-up of obstructive sleep apnea. Patient presents today for follow-up in PAP clinic: One year follow up Sleep Study: 01/16/10 AHI: 41/hr Sp02: 80% Treatment: CPAP Pressure: 10 cm Interface: Nasal mask Fit: ok Chin strap: no Humidifier Settin Snoring: no Dry Mouth: occsaionally Mouth Breathing: occasionally Patient Perceived Outcome: Patient reports she thinking of changing to a different style mask. She wakes within 2 hr and has to remove it if she can't adjust it properly to return to sleep. Also her HHis no longer functioning despite her [facility] gave her a HH. P sent her CPAP away for repair however the cost to repair was to high for her. They then gave her a rental unit while hers was being repaired.That has since came back but still did not work properly. She would like a new updated unit that works. Daytime Symptoms: [place]: 4 Naps: no Involuntary Dozing: no Driving: Not sleepy when driving ROS: ENT: Nasal Obstruction: no Constitutional: Weight stable Sleep Pattern: Bedtime: 10-1030 pm, watches TV for 30-60 min then affixes the mask and is asleep promptly. Wake time: 5-6 am Awakenings: [place] wakes within 2 hr after she's fallen asleep, may have to adjust her mask but cannot always fall back to sleep with the mask on. She doesn't know why she 's waking. Compliance Card Data: Date Range: 11/04-02/01/15 Settin cm Residual AHI: 0.2 Vibratory Snore Index: 3 % Night in Large Leak: 0 Average usage days used-Hours: 5 hr 45 min # Days of usage: 90/90 % Days used > 4 hours 86.7%. Total % Days used 100% Physical Exam: Respirations: Even and not labored at rest DERM: Skin Irritation no Filed Vitals: 02/02/15 1103 BP: 122/66 Pulse: 70 Weight: 77.928 kg (171 lb 12.8 oz) SpO2: 97% Assessment Ms. Aziza Victor is a 79 y.o. female seen for obstructive sleep apnea. Patients adherence card data shows patient is using CPAP. Patients AHI, VSI and Leak appear to be well treated with the current pressure at 10 cm. Patient is doing well with the current pressure and reports improvement/noting ongoing benefit with her sleep quality, daytime energy and alertness. Patients CPAP is not functioning, she does not have HH capability and she will need a new updated replacement which I will write a script for today along with nasal pillows to try. Humidifier/Heater function/rational and settings were reviewed with the patient Mask fit/assembly also was reviewed with the patient along with supply replacement Time spent face to face: 30 Min. Recomendations: 1) CPAP 11 cw with ramp. Humidity setting. 2) Follow-up: RTC 3 mos with Carolin (KE+) 3) Driving safety discussed, recommend patient not drive if drowsy, if drowsy while driving to pulley worker and take a nap. 4) Patient would like to try nasal pillows 5) Script written for nasal pillows and new updated CPAP The patient indicates understanding of these issues and agrees with the plan. The case was discussed with Dr. Sanford who saw the patient and participated in the formulation and decision making. documented in this encounter Plan of Treatment Upcoming Encounters Date Type Specialty Care Team Description 07/23/2022 Office Visit Ophthalmology Lalit Willoughby MD [facility] OPHTHALMOLOGY [place], [place] [address] (Wo rk) documented as of this encounter Visit Diagnoses Diagnosis CARSON on CPAP Obstructive sleep apnea (adult) (pediatr ic) documented in this encounter Care Teams Capping Machine Operator Relationship Specialty Start Date End Date Unknown PCP - General 10/03/10 06/15/20 None documented as of this encounter
--- OUTSIDE RECORDS SUMMARY | 2022-06-08 01:25 | XMS_ITS ---
:1935 Author Care Team Providers Name Role Phone ELENA HERRMANN Primary Care Provider [phone] ELENA HERRMANN Referring Provider [phone] ELENA HERRMANN Primary Care Provider [phone] Allergies Code Code System Name Reaction Severity Status Onset 794117 RxNorm Escitalopram ? ? Active ? 31277 RxNorm Simvastatin ? ? Active ? Sulfa (Sulfonamide ? ? Active ? Antibiotics) Medications Name Status Start Date Stop [...] Plan of Care Reminders Provider Appointments None recorded. ? ? Lab None recorded. ? ? Referral None recorded. ? ? Procedures None recorded. ? ? Surgeries None recorded. ? ? Imaging None recorded. ? ? Vitals Height Weight BMI Blood Pressure 167.01 cm 72.57 kg 26 kg/m2 146/60 mm[Hg]
[2022-06-08 16:49] LABS: INR 2.8 (0.9-1.1); Prothrombin Time 26.2 sec (9.3-11.0)
== END 2022-06-08 01:21 | disposition home or self-care (01) ==
LOC: LBO 01:20
DX: I26.99 Other pulmonary embolism without acute cor pulmonale (principal); Z79.01 Long term (current) use of anticoagulants
CPT/HCPCS: 36415; 85610

== ENCOUNTER → 2022-06-11 12:48 | Outpatient (BNVA) | payer MEDICARE, SELFPAY | PROVIDERS: Visit Provider Student in an Organized Health Care Education/Training Program | DX: M17.11 Unilateral primary osteoarthritis, right knee (principal); M17.12 Unilateral primary osteoarthritis, left knee | CPT/HCPCS: 20610; J7325 ==

== ENCOUNTER 2022-07-17 02:15 | Outpatient (CLI) | payer MEDICARE, SELFPAY ==
[2022-07-17 10:54] LABS: INR 3.1 (0.9-1.1); Prothrombin Time 28.9 sec (9.3-11.0)
== END 2022-07-17 02:16 | disposition home or self-care (01) ==
LOC: LBO 02:15
DX: I26.99 Other pulmonary embolism without acute cor pulmonale (principal); Z79.01 Long term (current) use of anticoagulants
CPT/HCPCS: 36415; 85610

== ENCOUNTER 2022-08-24 01:49 | Outpatient (CLI) | payer MEDICARE, SELFPAY ==
[2022-08-24 13:36] LABS: INR 2.4 (0.9-1.1)
== END 2022-08-24 01:50 | disposition home or self-care (01) ==
LOC: LBO 01:50
DX: Z79.01 Long term (current) use of anticoagulants (principal); I26.99 Other pulmonary embolism without acute cor pulmonale
CPT/HCPCS: 36415; 85610

== ENCOUNTER 2022-09-28 11:11 | Outpatient (CLI) | payer MEDICARE, SELFPAY ==
[2022-09-28 14:43] LABS: INR 2.7 (0.9-1.1); Prothrombin Time 25.5 sec (9.3-11.0)
== END 2022-09-28 11:12 | disposition home or self-care (01) ==
LOC: LBO 11:11
PROVIDERS: PCP Nurse Practitioner Family; Visit Provider Nurse Practitioner Family
DX: Z79.01 Long term (current) use of anticoagulants (principal); I26.99 Other pulmonary embolism without acute cor pulmonale
CPT/HCPCS: 36415; 85610

== ENCOUNTER 2022-10-26 01:06 | Outpatient (CLI) | payer MEDICARE, SELFPAY ==
[2022-10-26 14:05] LABS: INR 2.5 (0.9-1.1); Prothrombin Time 24.1 sec (9.3-11.0)
== END 2022-10-26 01:07 | disposition home or self-care (01) ==
PROVIDERS: PCP Nurse Practitioner Family
DX: I26.99 Other pulmonary embolism without acute cor pulmonale (principal); Z79.01 Long term (current) use of anticoagulants
CPT/HCPCS: 36415; 85610

== ENCOUNTER 2022-11-28 03:01 | Outpatient (CLI) | payer MEDICARE, SELFPAY ==
[2022-11-28 14:35] LABS: INR 2.7 (0.9-1.1); Prothrombin Time 25.9 sec (9.3-11.0)
== END 2022-11-28 03:02 | disposition home or self-care (01) ==
LOC: LBO 03:02
PROVIDERS: PCP Nurse Practitioner Family; Visit Provider Nurse Practitioner Family
DX: Z79.01 Long term (current) use of anticoagulants (principal); I26.99 Other pulmonary embolism without acute cor pulmonale
CPT/HCPCS: 36415; 85610

== ENCOUNTER 2022-12-03 10:27 | Outpatient (CLI) | payer MEDICARE, SELFPAY ==
--- NOTE | 2022-12-03 10:24 | DI.RAD_ITS ---
Exam(s) XR KNEE RT 3V AP,LAT,SADE EXAM: XR KNEE RT 3V AP,LAT,SADE CLINICAL HISTORY: f/u R knee OA. TECHNIQUE: 2D digital imaging was performed. Three views. COMPARISON: None FINDINGS: BONES: No acute fracture is present. No bony destructive lesion is seen. JOINTS: Severe narrowing lateral femoral tibial joint space with a tuod-in-daeh appearance. Prominen t spurring from the lateral tibial plateau and lateral femoral condyle. Spurring also noted at the t ibial spines and femoral intercondylar notch. Spurring at articular aspect of patella. No joint eff usion is seen. SOFT TISSUE: Corticated bony densities posterior to proximal fibula. 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 DATA REPOSITORY: RADIATION DOSE DELIVERED:
--- NOTE | 2022-12-03 10:24 | DI.RAD_ITS ---
Exam(s) XR KNEE LT 3V AP,LAT,SADE EXAM: XR KNEE LT 3V AP,LAT,SADE CLINICAL HISTORY: f/u L kne OA. TECHNIQUE: 2D digital imaging was performed. Three views. COMPARISON: CR LEFT KNEE 3 VIEW COMPLETE from 01/04/2016 FINDINGS: BONES: No acute fracture is present. No bony destructive lesion is seen. JOINTS: Severe narrowing lateral femoral tibial joint space of the adjacent prominent periarticular s purring. Spurring at articular aspect of patella. Spurring at the tibial spines.. No joint effusio n is seen. SOFT TISSUE: Question of posterior loose body. 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 DATA REPOSITORY: RADIATION DOSE DELIVERED:
== END 2022-12-03 10:28 | disposition home or self-care (01) ==
LOC: DIORS 10:28
PROVIDERS: PCP Nurse Practitioner Family; Referring Provider Nurse Practitioner Family; Visit Provider Student in an Organized Health Care Education/Training Program
DX: M17.0 Bilateral primary osteoarthritis of knee (principal)
CPT/HCPCS: 73562; 99213

== ENCOUNTER → 2022-12-17 09:50 | Outpatient (BNVA) | payer MEDICARE, SELFPAY | PROVIDERS: PCP Nurse Practitioner Family; Referring Provider Nurse Practitioner Family; Visit Provider Student in an Organized Health Care Education/Training Program | DX: M17.11 Unilateral primary osteoarthritis, right knee (principal); M17.12 Unilateral primary osteoarthritis, left knee | CPT/HCPCS: 20610; J7325 ==

== ENCOUNTER 2023-01-01 02:02 | Outpatient (CLI) | payer MEDICARE, SELFPAY ==
[2023-01-01 14:33] LABS: Prothrombin Time 29.9 sec (9.3-11.0)
== END 2023-01-01 02:03 | disposition home or self-care (01) ==
PROVIDERS: PCP Nurse Practitioner Family
DX: Z79.01 Long term (current) use of anticoagulants (principal); I26.99 Other pulmonary embolism without acute cor pulmonale
CPT/HCPCS: 36415; 85610

== ENCOUNTER 2023-02-04 02:28 | Outpatient (CLI) | payer MEDICARE, SELFPAY ==
[2023-02-04 14:47] LABS: INR 2.5 (0.9-1.1)
== END 2023-02-04 02:29 | disposition home or self-care (01) ==
PROVIDERS: PCP Nurse Practitioner Family
DX: I26.99 Other pulmonary embolism without acute cor pulmonale (principal); Z79.01 Long term (current) use of anticoagulants
CPT/HCPCS: 36415; 85610

== ENCOUNTER 2023-03-06 16:21 | Outpatient (CLI) | payer MEDICARE, SELFPAY ==
[2023-03-06 16:17] LABS: INR 2.3 (0.9-1.1); Prothrombin Time 22.9 sec (9.3-11.0)
== END 2023-03-06 16:22 | disposition home or self-care (01) ==
LOC: LBO 16:21
PROVIDERS: PCP Nurse Practitioner Family; Visit Provider Nurse Practitioner Family
DX: I26.99 Other pulmonary embolism without acute cor pulmonale (principal); Z79.01 Long term (current) use of anticoagulants
CPT/HCPCS: 36415; 85610

== ENCOUNTER 2023-04-01 01:11 | Outpatient (CLI) | payer MEDICARE, SELFPAY ==
--- NOTE | 2023-04-01 07:45 | DI.MAMMO_ITS ---
Exam(s) MAMMO SCREENING EXAM: MAMMO SCREENING CLINICAL HISTORY: screening,z12.39 TECHNIQUE: Bilateral full field digital CC and MLO mammographic images were obtained with 3D tomosyn thesis and utilizing computer aided detection (CAD). COMPARISON: Available for comparison. FINDINGS: Masses/Architectural Distortion: None seen. Microcalcifications: No suspicious pleomorphic-type are seen. Skin Thickening/Nipple Retraction: None. IMPRESSION: 1. No significant interval change with no specific features of malignancy noted. 2. Unless there is more urgent need, screening mammography is recommended, as per [employer] guidelines. BI-RADS Category 1 - Negative Breast Density - Category B - Scattered areas of fibroglandular density Breast density category C or D implies that the patient has dense breast tissue. Dense breast tissue is very common and is not abnormal but dense breast tissue can make it harder to find cancer on a ma mmogram. Also, dense breast tissue may increase their breast cancer risk. This information about the result of the mammogram report was provided to the patient to raise their awareness. Use this report when you speak with the patient about their risks for breast cancer, which includes their family hist ory. At that time, you may recommend for more screening tests (Ultrasound or MRI) as they might be us eful based on their risk. A negative radiographic report should not delay biopsy if a dominant or clinically suspicious mass is present. Up to ten percent of cancers are not identified on mammography. A negative report may reinforce clinical impression. Adenosis and dense breasts may obscure an underlying neoplasm. False positive reports average 6 to 10%. Patient will receive a letter notifying them of these results.
== END 2023-04-01 01:31 ==
LOC: DI 01:11
PROVIDERS: PCP Nurse Practitioner Family; Visit Provider Nurse Practitioner Family
DX: Z12.31 Encounter for screening mammogram for malignant neoplasm of breast (principal)
CPT/HCPCS: 77063; 77067

== ENCOUNTER 2023-04-10 14:47 | Outpatient (CLI) | payer MEDICARE, SELFPAY ==
[2023-04-10 14:42] LABS: INR 2.1 (0.9-1.1); Prothrombin Time 21.4 sec (9.3-11.0)
== END 2023-04-10 14:48 | disposition home or self-care (01) ==
LOC: LBO 14:48
PROVIDERS: PCP Nurse Practitioner Family; Visit Provider Nurse Practitioner Family
DX: I26.99 Other pulmonary embolism without acute cor pulmonale (principal); Z79.01 Long term (current) use of anticoagulants
CPT/HCPCS: 36415; 85610

== ENCOUNTER 2023-05-03 02:52 | Outpatient (CLI) | payer MEDICARE, SELFPAY ==
[2023-05-03 11:12] LABS: HGB 13.6 g/dL (11.2-15.7); MCH 31.4 pg (27.0-33.0); MCV 92 fL (80-95); MPV 9.2 fL (8.0-11.0); Platelet Count 216 10^3/uL (130-400); RBC 4.33 10^6/uL (3.93-5.22); RDW 12.4 % (11.7-14.6); RDW-SD 42.6 fL; WBC 6.65 10^3/uL (4.4-10.8)
[2023-05-03 11:21] LABS: INR 2.2 (0.9-1.1); Prothrombin Time 22.5 sec (9.3-11.0)
[2023-05-03 11:49] LABS: ALT 27 U/L (14-59); AST 23 U/L (15-37); Alkaline Phosphatase 69 U/L (46-116); Anion Gap 10.8 mmol/L (3-11); BUN 30 mg/dL (7-18); Bilirubin, Total 0.9 mg/dL (0.2-1.0); CO2 25.2 mmol/L (21.0-32.0); Chloride 104 mmol/L (98-107); Estimated GFR 55.21 (mL/min/1.73m2); Glucose 93 mg/dL (74-106); Potassium 4.2 mmol/L (3.5-5.1); Sodium 140 mmol/L (136-145); TSH (W/Ref FT4) 3.38 uIU/mL (0.36-3.74); Total Protein 7.5 g/dL (6.4-8.2)
== END 2023-05-03 02:53 | disposition home or self-care (01) ==
PROVIDERS: PCP Nurse Practitioner Family; Visit Provider Nurse Practitioner Family
DX: R53.83 Other fatigue (principal); E05.00 Thyrotoxicosis with diffuse goiter without thyrotoxic crisis or storm; E78.5 Hyperlipidemia, unspecified; I26.99 Other pulmonary embolism without acute cor pulmonale; Z79.01 Long term (current) use of anticoagulants
CPT/HCPCS: 36415; 80053; 85027; 84443; 85610

== ENCOUNTER 2023-06-11 04:26 | Outpatient (CLI) | payer MEDICARE, SELFPAY ==
[2023-06-11 13:04] LABS: INR 2.6 (0.9-1.1); Prothrombin Time 25.9 sec (9.3-11.0)
== END 2023-06-11 04:27 | disposition home or self-care (01) ==
LOC: LBO 04:29
PROVIDERS: PCP Nurse Practitioner Family; Visit Provider Nurse Practitioner Family
DX: I26.99 Other pulmonary embolism without acute cor pulmonale (principal); Z79.01 Long term (current) use of anticoagulants
CPT/HCPCS: 36415; 85610

== ENCOUNTER → 2023-06-17 09:54 | Outpatient (BNVA) | payer MEDICARE, SELFPAY | PROVIDERS: PCP Nurse Practitioner Family; Visit Provider Student in an Organized Health Care Education/Training Program | DX: M17.11 Unilateral primary osteoarthritis, right knee (principal); M17.12 Unilateral primary osteoarthritis, left knee | CPT/HCPCS: 20610; J7325 ==

== ENCOUNTER 2023-07-17 04:22 | Outpatient (CLI) | payer MEDICARE, SELFPAY ==
[2023-07-17 12:06] LABS: INR 2.5 (0.9-1.1); Prothrombin Time 25.7 sec (9.3-11.0)
== END 2023-07-17 04:23 | disposition home or self-care (01) ==
LOC: LBO 04:23
PROVIDERS: PCP Nurse Practitioner Family; Visit Provider Nurse Practitioner Family
DX: I26.99 Other pulmonary embolism without acute cor pulmonale (principal); Z79.01 Long term (current) use of anticoagulants
CPT/HCPCS: 36415; 85610

== ENCOUNTER → 2023-07-18 08:27 | Outpatient (BNVA) | payer MEDICARE, SELFPAY | PROVIDERS: PCP Nurse Practitioner Family; Referring Provider Nurse Practitioner Family; Visit Provider Nurse Practitioner Adult Health | DX: G56.02 Carpal tunnel syndrome, left upper limb (principal) | CPT/HCPCS: 95908; 99203; 99214 ==

== ENCOUNTER 2023-08-20 03:19 | Outpatient (CLI) | payer MEDICARE, SELFPAY ==
[2023-08-20 14:19] LABS: INR 2.7 (0.9-1.1); Prothrombin Time 25.3 sec (9.1-11.1)
== END 2023-08-20 03:20 | disposition home or self-care (01) ==
PROVIDERS: PCP Nurse Practitioner Family; Visit Provider Nurse Practitioner Family
DX: I26.99 Other pulmonary embolism without acute cor pulmonale (principal)
CPT/HCPCS: 36415; 85610

== ENCOUNTER 2023-09-19 02:34 | Outpatient (CLI) | payer MEDICARE, SELFPAY ==
[2023-09-19 14:42] LABS: INR 2.7 (0.9-1.1)
== END 2023-09-19 02:35 | disposition home or self-care (01) ==
PROVIDERS: PCP Nurse Practitioner Family; Visit Provider Nurse Practitioner Family
DX: I26.99 Other pulmonary embolism without acute cor pulmonale (principal)
CPT/HCPCS: 36415; 85610

== ENCOUNTER → 2023-09-23 14:36 | Outpatient (BNVA) | payer MEDICARE, SELFPAY | PROVIDERS: PCP Nurse Practitioner Family; Referring Provider Nurse Practitioner Family; Visit Provider Student in an Organized Health Care Education/Training Program | DX: G56.02 Carpal tunnel syndrome, left upper limb (principal) | CPT/HCPCS: 99213 ==

== ENCOUNTER 2023-09-28 08:52 | Emergency (ER) | payer MEDICARE, SELFPAY ==
[2023-09-28] VITALS (19 sets, daily range): BP systolic 145–179; BP diastolic 55–90; PULSE 62–80; RESP 10–25; TEMP 36.6; O2SAT 97
--- NOTE | 2023-09-28 08:45 | RT.EKG_ITS ---
APPROVED REPORT Exam: Resting ECG Reason for Exam: Dizziness Patient Location: E HR:73 bpm ECG Measurements Heart Rate 73 AXIS VT 162 P 57 QRSd 148 QRS -8 QT 423 T 168 QTc 466 Conclusion Sinus rhythm...normal P axis, V-rate 60- 99 Probable left atrial enlargement...P >50mS, <-0.10mV V1 Left bundle branch block...QRSd>120, broad/notched R sinus rhythm, left axis, LBBB unchanged from prior
--- NOTE | 2023-09-28 09:30 | DI.CT_ITS ---
Exam(s) CT BRAIN NECK CTA EXAM: CT BRAIN NECK CTA CLINICAL HISTORY: dizziness. TECHNIQUE: Imaging Protocol: Axial CT angiography was performed with multi-slice acquisition and mu lti-planar and 3D reconstructions. CONTRAST MATERIAL: Intravenous: Omnipaque 350 Contrast volume:100 ml COMPARISON: No exams were available for comparison FINDINGS: CT Head W/O and W contrast: Ventricles and Extra axial spaces: Normal in size and morphology for the patient's age. Hemorrhage: None. Cerebral parenchyma: Mild atrophy. No evidence infarct or mass. Midline shift: None. Brainstem/Cerebellum: Normal. Calvarium: Normal. Visualized Paranasal sinuses/Mastoids: Clear. Soft Tissues: Unremarkable. Enhancement: Normal. CTA Brain W: Internal Carotid Arteries: Petrous: Normal. Cavernous: Calcification, no stenosis. Cerebral: Normal. Middle Cerebral Arteries: Right: No aneurysm, occlusion or significant stenosis. Left: No aneurysm, occlusion or significant stenosis. Anterior Cerebral Arteries: Right: No aneurysm, occlusion or significant stenosis. Left: No aneurysm, occlusion or significant stenosis. Posterior cerebral Arteries: Right: No aneurysm, occlusion or significant stenosis. Left: No aneurysm, occlusion or significant stenosis. Vertebral Arteries: Right: No aneurysm, occlusion or significant stenosis. Left: No aneurysm, occlusion or significant stenosis. Basilar Artery: No aneurysm, occlusion or significant stenosis. CTA Neck W: Common Carotid: Right: No dissection, occlusion or significant stenosis. Left: No dissection, occlusion or significant stenosis. External Carotid: Right: No dissection, occlusion or significant stenosis. Left: No dissection, occlusion or significant stenosis. Internal Carotid: Right: Minimal plaque. No dissection, occlusion or significant stenosis. Left: Minimal plaque. No dissection, occlusion or significant stenosis. Vertebral Artery: Right: No dissection, occlusion or significant stenosis. Left: No dissection, occlusion or significant stenosis. Lung Apices: Normal. Bones: No acute abnormality. Degenerative changes. Soft Tissues: Diffusely enlarged thyroid without visible dominant nodule. Consistent with multinodul ar goiter. IMPRESSION: 1. Normal CTA examination of the [place]. 2. Unremarkable CT Head. 3. CTA neck: Mild calcific plaque. No significant stenosis. RADIATION DOSE DELIVERED: Total DLP DATA REPOSITORY: All CT scans at this facility are submitted to the National Radiology Data Registry (NRDR) Dose Index Registry (DIR) with the [employer] (ACR). RADIATION OPTIMIZATION: All CT scans at this facility use at least one of these dose optimization te chniques: automated exposure control; mA and/or kV adjustment per patient size (includes targeted exa ms where dose is matched to clinical indication); or iterative reconstruction.
--- NOTE | 2023-09-28 09:40 | W.ED.GENAD ---
Discharge Plan Disposition Patient Disposition: Home Discharge Details Clinical Impression: Vertigo Primary Care Provider: Darshan Hansen ED Provider: Arnaud Roper Home Meds and New Rx's Prescriptions: New meclizine 25 mg tablet 25 mg PO TID PRN (Reason: dizziness) Qty: 30 0RF Continued lutein-zeaxanthin [Ocuvite Lutein 25] 25-5 mg capsule 1 cap PO DAILY amlodipine 2.5 mg tablet 2.5 mg PO DAILY Qty: 90 4RF latanoprost 0.005 % drops 1 drp ophthalmic (eye) DAILY CPAP Rx Instructions: SLEEP [place], [facility] [place] [facility] acetaminophen 500 mg tablet See Rx Instructions PO BID Qty: 2 Patient Comments: 03/16/19 takes 2 tablets AM, 1 tablet at HS DL Rx Instructions: 2 tabs AM, 1 tab PM PO twice a day; bupropion HCl [Wellbutrin SR] 100 mg tablet sustained-release 12 hr 100 mg PO DAILY Qty: 90 3RF levothyroxine 50 mcg tablet 50 mcg PO DAILY Qty: 90 4RF Rx Instructions: 1 TAB DAILY losartan 100 mg tablet 100 mg PO DAILY Qty: 90 4RF Rx Instructions: instead of Diovan warfarin 5 mg tablet 5 - 10 mg PO HS MDD 10mg Qty: 100 4RF Protocol: Dose Management Condition: Saturday Dose/Route: 5 mg Instruction: 1 x 5 mg tablet Condition: Saturday Dose/Route: 2.5 mg Instruction: 0.5 x 5 mg tablets Condition: Saturday Dose/Route: 5 mg Instruction: 1 x 5 mg tablet Condition: Saturday Dose/Route: 2.5 mg Instruction: 0.5 x 5 mg tablets Condition: Dose/Route: 5 mg Instruction: 1 x 5 mg tablet Condition: Saturday Dose/Route: 2.5 mg Instruction: 0.5 x 5 mg tablets Condition: Saturday Dose/Route: 5 mg Instruction: 1 x 5 mg tablet Protocol Text: Adjustment Start Date: 09/19/23 INR Value: 2.7 INR Date: 09/19/23 Recheck Date: 10/19/23 Rx Instructions: TAKE 0-2 TABS DIRECTED BY CORNER MED BASED ON BLOOD TEST Discharge Instructions Instructions: Vertigo (ED) Additional Instructions: Please use walker or cane for any ambulation to ensure that you are safe moving around your home. You may take the prescribed medication as needed for further dizziness or vertigo. If you have any new or significant worsening of symptoms such as passing out, falls, headache or chest pain return immediately to the emergency department for reassessment Please stay appropriately hydrated, eat a nutritious diet, and follow-up with your primary care provider for reassessment and to ensure your symptoms are improving. Referrals: Darshan Hansen NP [Primary Care Provider] - 5 days Discharge Data Discharge Date/Time-TO BE ENTERED AT DEPARTURE: 09/28/23 13:06 Medical Decision Making Patient presenting to the emergency department for chief complaint of dizziness. She states that yesterday morning she bent over to get something and when she stood up she became dizzy. She had noted some ear discomfort but nothing that was persistent. Throughout the day yesterday symptoms were intermittent but then starting yesterday evening they became more persistent. Had some continued symptoms this morning causing her to come to the emergency department for evaluation. Patient denies any pain or discomfort, chest pain, syncope, or any other symptoms beyond the noted dizziness only with movement. Patient has significant past medical history of PE on anticoagulation chronically, hypertension, otherwise no other contributing medical history noted. Patient denies any recent medication changes. Physical exam does show some horizontal nystagmus mainly towards the right lateral gaze but this is a very subtle finding. Neuro exam is otherwise unremarkable, hints exam shows no obvious abnormalities except for noted horizontal nystagmus. Did perform Dayton-Hallpike maneuver and Aung maneuver to see if this helped patient's symptoms which did seem to somewhat reduce patient's dizziness but not completely resolved. Given her medical history and that she is on anticoagulation will perform full work-up including blood work and CT imaging. Pending results will give small dose of meclizine Please see physician interpretation for full interpretation of EKG but upon my review patient is in sinus rhythm, does have bundle branch block but no significant change from previous EKG dated 2008. Reviewed patient's labs and overall noncontributory with no emergent findings noted. CT imaging showed no acute or emergent findings noted. Urinalysis does show moderate amount of leukocyte Estrace otherwise does appear to be a contaminated specimen. Given the patient has no urinary symptoms will not further investigate this. Patient was able to ambulate through the department with assist of walker and had slight improvement of symptoms but still felt a little dizzy. Discussed safe and appropriate home use of walker along with monitoring symptoms and return precautions. Otherwise outpatient follow-up with primary care provider for recheck and will prescribe meclizine for home use. After discussion of diagnosis and plan of care, family member and patient has no further needs, questions, or concerns and states clear understanding to return to the emergency department for any worsening symptoms. This documentation was generated using [employer] dictation system, please disregard any oddities of phrase or misspellings. Imaging Data Radiologic Study: Imaging: CT Scan My impression: Exam(s) a CT:CT brain & neck CTA Exam(s) CT BRAIN NECK CTA EXAM: CT BRAIN NECK CTA CLINICAL HISTORY: dizziness. TECHNIQUE: Imaging Protocol: Axial CT angiography was performed with multi-slice acquisition and multi-planar and 3D reconstructions. CONTRAST MATERIAL: Intravenous: Omnipaque 350 Contrast volume:100 ml COMPARISON: No exams were available for comparison FINDINGS: CT Head W/O and W contrast: Ventricles and Extra axial spaces: Normal in size and morphology for the patient's age. Hemorrhage: None. Cerebral parenchyma: Mild atrophy. No evidence infarct or mass. Midline shift: None. Brainstem/Cerebellum: Normal. Calvarium: Normal. Visualized Paranasal sinuses/Mastoids: Clear. Soft Tissues: Unremarkable. Enhancement: Normal. CTA Brain W: Internal Carotid Arteries: Petrous: Normal. Cavernous: Calcification, no stenosis. Cerebral: Normal. Middle Cerebral Arteries: Right: No aneurysm, occlusion or significant stenosis. Left: No aneurysm, occlusion or significant stenosis. Anterior Cerebral Arteries: Right: No aneurysm, occlusion or significant stenosis. Left: No aneurysm, occlusion or significant stenosis. Posterior cerebral Arteries: Right: No aneurysm, occlusion or significant stenosis. Left: No aneurysm, occlusion or significant stenosis. Vertebral Arteries: Right: No aneurysm, occlusion or significant stenosis. Left: No aneurysm, occlusion or significant stenosis. Basilar Artery: No aneurysm, occlusion or significant stenosis. CTA Neck W: Common Carotid: Right: No dissection, occlusion or significant stenosis. Left: No dissection, occlusion or significant stenosis. External Carotid: Right: No dissection, occlusion or significant stenosis. Left: No dissection, occlusion or significant stenosis. Internal Carotid: Right: Minimal plaque. No dissection, occlusion or significant stenosis. Left: Minimal plaque. No dissection, occlusion or significant stenosis. Vertebral Artery: Right: No dissection, occlusion or significant stenosis. Left: No dissection, occlusion or significant stenosis. Lung Apices: Normal. Bones: No acute abnormality. Degenerative changes. Soft Tissues: Diffusely enlarged thyroid without visible dominant nodule. Consistent with multinodular goiter. IMPRESSION: 1. Normal CTA examination of the [place]. 2. Unremarkable CT Head. 3. CTA neck: Mild calcific plaque. No significant stenosis. Lab Data Lab results reviewed: Yes I reviewed the patient's lab results. HPI General Mode of arrival: ambulatory. Date/Time Provider Initiated Documentation: 09/28/23 09:04. Limitations to Documentation: no limitations. Information obtained by: patient, family and RN notes reviewed. History of Present Illness 88 year old F presents to the emergency department with the chief complaint of Dizziness, described as moderate, Patient reports no radiation. Patient started experiencing this day(s) (1) and it has been intermittent. No relieving factors improve symptom(s), Movement worsens symptoms . Patient notes no other symptoms.. Patient did receive the following treatments prior to arrival, none Related Data Home Medications Medication Instructions Recorded Confirmed Cpap 09/12/13 09/23/23 lutein 25 mg-zeaxanthin 5 mg 1 cap PO DAILY 12/27/20 09/28/23 capsule (Ocuvite Lutein) acetaminophen 500 mg tablet See Rx Instructions PO BID ##2 03/15/22 09/28/23 bupropion HCl 100 mg tablet,12 hr 100 mg PO DAILY #90 tab-caps 11/07/22 09/28/23 sustained-release (Wellbutrin SR) levothyroxine 50 mcg tablet 50 mcg PO DAILY #90 tab-caps 11/07/22 09/28/23 losartan 100 mg tablet 100 mg PO DAILY #90 tab-caps 11/07/22 09/28/23 warfarin 5 mg tablet 5 - 10 mg PO HS #100 tab-caps 11/07/22 09/28/23 latanoprost 0.005 % eye drops 1 drp ophthalmic (eye) DAILY 12/03/22 09/28/23 amlodipine 2.5 mg tablet 2.5 mg PO DAILY #90 tab-caps 03/19/23 09/28/23 meclizine 25 mg tablet 25 mg PO TID PRN dizziness #30 tabs 09/28/23 Previous Rx's Medication Instructions Recorded bupropion HCl 100 mg tablet,12 hr 100 mg PO DAILY #90 tab-caps 11/07/22 sustained-release (Wellbutrin SR) levothyroxine 50 mcg tablet 50 mcg PO DAILY #90 tab-caps 11/07/22 losartan 100 mg tablet 100 mg PO DAILY #90 tab-caps 11/07/22 warfarin 5 mg tablet 5 - 10 mg PO HS #100 tab-caps 11/07/22 amlodipine 2.5 mg tablet 2.5 mg PO DAILY #90 tab-caps 03/19/23 meclizine 25 mg tablet 25 mg PO TID PRN dizziness #30 tabs 09/28/23 Allergies Allergy/AdvReac Type Severity Reaction Status Date / Time Sulfa (Sulfonamide Allergy Verified 09/28/23 11:37 Antibiotics) escitalopram oxalate AdvReac Intermediate DIDN'T Verified 09/28/23 11:37 [From Lexapro] LIKE THE WAY IT MADE HER FEEL simvastatin AdvReac Intermediate myalgia Verified 09/28/23 11:37 and rash General Stated Complaint: Dizzy/Sync UMANG: 3 Review of Systems Constitutional Constitutional: Denies chills, Denies fever(s), Denies headache(s), Denies malaise and Denies weakness Eyes Eyes: Denies change in vision ENT Ears, Nose, Mouth, and Throat: Denies bleeding gums, Reports dizziness, Reports otalgia, Denies facial pain, Denies headache(s) and Denies epistaxis Cardiovascular Cardiovascular: Denies chest pain, Denies syncope, Denies irregular heart rhythm, Denies lightheadedness and Denies dyspnea Respiratory Respiratory: Denies dyspnea Gastrointestinal Gastrointestinal: Denies nausea and Denies vomiting Neurologic Neurologic: Reports as per HPI, Denies abnormal movements, Reports dizziness, Denies syncope, Denies headache(s), Denies lack of coordination, Denies localized weakness and Denies weakness PFSH All Active Problems (Updated 09/28/23 @ 12:14 by Arnaud Roper NP) Vertigo (Acute) Left carpal tunnel syndrome (Acute) Skin lesions (Acute) Fatigue (Acute) Numbness and tingling in left hand (Chronic) Acquired skin tag (Acute) Macular degeneration of both eyes (Acute ~06/2020) 06/16/20 [facility] [place] [facility] Adv. 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 Hyperlipidemia (Chronic) Graves' disease (Acute) Hypothyroid 2007 thyroid US diffuse goiter Generalized osteoarthrosis (Chronic) DJD hands and neck and knees Essential hypertension (Chronic 09/17/13) Eczema (Acute 07/14/15) Depression (Acute) stress, with dementia Passed 10/2018 Abnormal ECG (Acute 10/10/07) BBB pattern; 03/18 echo- nl RV,LV, and valves; EF 65% Chronic rhinitis (Chronic) Chronic otitis externa (Acute 07/14/15) Medical History Hives of unknown origin Prolapse of vaginal coyle without uterine prolapse Osteoarthritis Surgical History Total replacement of hip 1991 left 2002 right Abdominal hysterectomy Hemorrhoidectomy Family History Father , 75 Heart disease Maternal Grandfather , 70 Heart disease Sister Heart disease Son No problems noted. Son No problems noted. Son No problems noted. Mother , age 86 No problems noted. Maternal Grandfather , age 73 No problems noted. Maternal Grandmother , in her 20s from bad surgery No problems noted. Paternal Grandmother , in her 80s No problems noted. Social History Smoking/Tobacco Use Status: Never Second Hand Exposure: Yes Smoking risk assessment performed?: Yes Alcohol Intake: current Alcohol Intake frequency: a few times a week Alcohol type: wine Drug use: Never Substance use type: does not use Household members: none Housing: house Communication Needs: Corrective Lenses Do you need help understanding health information?: Rarely Pets and animals: No Sexually active: No Do you think of yourself as: straight/heterosexual Current gender identity: female What is your relationship status?: How often do you talk on the phone with friends or family?: three or more times per week How often do you get together with friends or relatives?: three or more times per week How often do you attend mandaeism or sabianist services?: 4 or more times per year Panel score (0-1 are the most socially isolated patients): 2 Cassandra/Amish: Anabaptism Special cassandra needs: No Seatbelt use: always 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 Do you feel safe at home: Yes Do you feel safe in your relationship?: Yes Exam Const General: cooperative, healthy appearing, no acute distress and well groomed Orientation: alert, awake and oriented x3 HENMT Head: normal to inspection Ears: hearing grossly normal bilaterally and TM's normal bilaterally Mouth: oral mucosae normal and moist mucous membranes Throat: posterior oropharynx normal Eyes Visual Ruby: normal visual ruby by confrontation Alignment and Position: alignment normal Periorbital: periorbital findings normal Eyelids: eyelids normal Sclera: sclerae normal Cornea: corneas normal Pupils: PERRL EOM: EOM intact bilaterally Neck Neck: normal visual inspection, full ROM, no lymphadenopathy and no meningeal signs Resp Effort & Inspection: normal respiratory effort and able to speak in complete sentences Auscultation: clear to auscultation bilaterally Cardio Rate: regular rate Rhythm: regular rhythm Heart Sounds: S1 normal and S2 normal Neuro General: patient alert, patient awake, patient oriented x3, gait normal, tone normal, moves all extremities, CN's II-XI intact bilaterally and not confused Cognition: normal cognition Speech: speech normal Motor: muscle tone normal throughout, strength 5/5 throughout, no pronator drift, no movement abnormalities noted and no fasciculations Sensory Exam: no sensory deficits noted Course Vital Signs Vital signs: Vital Signs Temperature 36.6 C 09/28/23 08:56 Pulse 75 09/28/23 08:56 Respiratory Rate 18 09/28/23 08:56 Blood Pressure 179/72 H 09/28/23 08:56 Pulse Oximetry 97 09/28/23 08:56 Temperature 36.6 C 09/28/23 08:56 Temperature Source Oral 09/28/23 08:56 Pulse 75 09/28/23 08:56 Respiratory Rate 18 09/28/23 08:56 Respiratory Effort Normal 09/28/23 09:13 Blood Pressure 179/72 H 09/28/23 08:56 Blood Pressure Position Sitting 09/28/23 08:56 Pulse Oximetry 97 09/28/23 08:56 Oxygen Delivery Method Room Air 09/28/23 08:56 Oxygen Flow Rate 0 09/28/23 08:56 Pain Level 0 09/28/23 08:56
[2023-09-28] MEDS: Meclizine 12.5 MG TAB PO (09:55)
[2023-09-28 10:02] LABS: Abs Immature Grans 0.01 10^3/uL (0.0-0.06); Absolute Basophil Count 0.05 10^3/uL (0.0-0.2); Absolute Lymphocyte Count 1.81 10^3/uL (1.2-3.4); Absolute Monocyte Count 0.34 10^3/uL (0.1-0.8); Absolute Neutrophil Count 2.58 10^3/uL (1.2-6.7); HCT 41.3 % (36.0-46.0); HGB 13.9 g/dL (11.2-15.7); Immature Grans % 0.2; Lymphocytes % 36.3; MCH 31.9 pg (27.0-33.0); MCHC 33.7 % (32.0-36.0); MCV 95 fL (80-95); MPV 9.4 fL (8.0-11.0); Monocytes % 6.8; Neutrophils % 51.7; Platelet Count 206 10^3/uL (130-400); RBC 4.36 10^6/uL (3.93-5.22); RDW 12.3 % (11.7-14.6); RDW-SD 43.2 fL; WBC 4.99 10^3/uL (4.4-10.8)
[2023-09-28 10:13] LABS: INR 2.5 (0.9-1.1); Prothrombin Time 23.5 sec (9.1-11.1)
[2023-09-28 10:17] LABS: ALT 22 U/L (14-59); AST 20 U/L (15-37); Albumin 3.9 g/dL (3.4-5.0); Alkaline Phosphatase 68 U/L (46-116); Anion Gap 5.9 mmol/L (3-11); BUN 28 mg/dL (7-18); Bilirubin, Total 0.8 mg/dL (0.2-1.0); CO2 27.1 mmol/L (21.0-32.0); CREATININE 0.7 mg/dL (0.55-1.02); Calcium 9.4 mg/dL (8.5-10.1); Chloride 104 mmol/L (98-107); Estimated GFR 84.17 (mL/min/1.73m2); Glucose 106 mg/dL (74-106); Potassium 4.2 mmol/L (3.5-5.1); Sodium 137 mmol/L (136-145); Total Protein 7.4 g/dL (6.4-8.2); Troponin I < 50 ng/L (<or=60)
[2023-09-28] MEDS: Normal Saline Flush 10 ML SYR IVP (10:49)
[2023-09-28] MEDS: Normal Saline - Diluent 50 ML VIAL IJ (10:49)
[2023-09-28] MEDS: Omnipaque 350 MG/ML 100 ML BTL IJ (10:51)
--- NOTE | 2023-09-28 11:26 | DI.VRAD_ITS ---
PROCEDURE INFORMATION: Exam: CTA Head With Contrast, Arteriography Exam date and time: 09/28/2023 10:49 AM Age: 88 years old Clinical indication: Dizziness and giddiness TECHNIQUE: Imaging protocol: Computed tomographic angiography of the head with contrast. Exam focused on the arteries. 3D rendering (Not supervised by radiologist): MIP and/or 3D reconstructed images were created by the technologist. Radiation optimization: All CT scans at this facility use at least one of these dose optimization techniques: automated exposure control; mA and/or kV adjustment per patient size (includes targeted exams where dose is matched to clinical indication); or iterative reconstruction. Contrast material: OMNI 350; Contrast volume: 85 ml; Contrast route: INTRAVENOUS (IV); COMPARISON: No relevant prior studies available. FINDINGS: ANTERIOR CIRCULATION: Right internal carotid artery: Mild cavernous carotid disease the right. Right middle cerebral artery: No occlusion or significant stenosis. No aneurysm. Right anterior cerebral artery: No occlusion or significant stenosis. No aneurysm. Left internal carotid artery: Mild cavernous carotid disease on the left. Left middle cerebral artery: No occlusion or significant stenosis. No aneurysm. Left anterior cerebral artery: No occlusion or significant stenosis. No aneurysm. POSTERIOR CIRCULATION: Right vertebral artery: No occlusion or significant stenosis. No aneurysm. Left vertebral artery: No occlusion or significant stenosis. No aneurysm. Basilar artery: No occlusion or significant stenosis. No aneurysm. Right posterior cerebral artery: origin of the posterior cerebral artery on the right without significant stenosis. Left posterior cerebral artery: No occlusion or significant stenosis. No aneurysm. Veins: Venous contamination without venous thrombus. Brain: Moderate diffuse involutional changes in the brain without acute hemorrhage or acute territorial infarct. No abnormal enhancement in the brain. Cerebral ventricles: No ventriculomegaly. Pituitary gland and sella: No focal mass. Bones/joints: Unremarkable. No acute fracture. Soft tissues: Unremarkable. IMPRESSION: 1. No acute intracranial abnormality. 2. No large vessel occlusion at the [id number]. PROCEDURE INFORMATION: Exam: CTA Neck With Contrast Exam date and time: 09/28/2023 10:49 AM Age: 88 years old Clinical indication: Dizziness and giddiness TECHNIQUE: Imaging protocol: Computed tomographic angiography of the neck with contrast. Exam focused on the cervical segments of the vasculature. 3D rendering (Not supervised by radiologist): MIP and/or 3D reconstructed images were created by the technologist. Radiation optimization: All CT scans at this facility use at least one of these dose optimization techniques: automated exposure control; mA and/or kV adjustment per patient size (includes targeted exams where dose is matched to clinical indication); or iterative reconstruction. Contrast material: OMNI 350; Contrast volume: 85 ml; Contrast route: INTRAVENOUS (IV); COMPARISON: No relevant prior studies available. FINDINGS: Right common carotid artery: No stenosis. No dissection or occlusion. Right internal carotid artery: Mild internal carotid artery disease at the origin on the right. Right external carotid artery: No occlusion or stenosis of the origin. Left common carotid artery: No stenosis. No dissection or occlusion. Left internal carotid artery: Mild internal carotid artery disease on the origin on the left. Left external carotid artery: No occlusion or stenosis of the origin. Right vertebral artery: No stenosis. No dissection or occlusion. Left vertebral artery: No stenosis. No dissection or occlusion. Right subclavian artery: Mild narrowing at the origin of the right subclavian artery. Left subclavian artery: Moderate disease at the origin of the left subclavian artery. Aorta: Moderate atherosclerotic changes of the thoracic aortic arch. Other arteries: Mild narrowing the origin of the innominate artery. Dental: Artifact from patient's dental hardware. Lymph nodes: No lymphadenopathy. Soft tissues: Normal. No significant soft tissue swelling. Bones/joints: Degenerative changes and reversal lordosis without acute fracture. Lungs: Clear lung apices. Mediastinal space: Heterogeneous enlarged thyroid extending in the upper mediastinum probably due to goiter. Consider ultrasound follow-up. IMPRESSION: 1. Mild internal carotid artery stenosis by NASCET criteria bilaterally. 2. Findings suggestive of thyroid goiter. REFERENCES: NASCET CRITERIA. The degree of stenosis in the cervical segment of the internal carotid artery is based on NASCET criteria. Normal is no stenosis. Mild is less than 50% stenosis. Moderate is 50-69% stenosis. Severe is 70% to 99% stenosis. Total occlusion is no detectable patent lumen. Dictated and Authenticated by: Pablito Patel MD. Ordering:SALOME Lares MD
--- NOTE | 2023-09-28 12:15 | NUR.NOTE ---
Referral faxed to PCP for vertigo within the next week. Nursing Note:
[2023-09-28 12:35] LABS: Bilirubin Negative (Negative); Blood Negative (Negative); Clarity Clear (Clear); Glucose Negative (Negative); Ketones Negative (Negative); Leukocyte Esterase Moderate (Negative); Nitrite Negative (Negative); Specific Gravity 1.015 (1.005-1.025); Urobilinogen 0.2 mg/dL (Up to 0.2)
[2023-09-28 12:43] LABS: Bacteria Many HPF (Negative); C & S Indicated? No/Sq. Contamination; Casts Negative LPF (Negative); Crystals Negative HPF (Negative); Epithelial Cells Moderate HPF (Negative); Mucus Negative (Negative)
== END 2023-09-28 13:06 | disposition home or self-care (01) ==
PROVIDERS: Emergency Provider Nurse Practitioner Family; PCP Nurse Practitioner Family
DX: R42 Dizziness and giddiness (principal)
CPT/HCPCS: 36415; 70496; 70498; 80053; 93005; 99285; 81003; 81015; 83735; 84484; 85025; 85610; 85730; 93010; 99283; J3490

== ENCOUNTER 2023-10-08 10:43 | Day surgery (SDC) | payer MEDICARE, SELFPAY ==
[2023-10-08 11:13] VITALS: BP 150/69; PULSE 68; RESP 18; TEMP 36.7; O2SAT 98
--- NOTE | 2023-10-08 11:40 | ANES.PREOP_ITS ---
General Info Date of Service Date Performed: 10/08/23 Height: 5 ft 1 in Weight: 70.6 kg Body Mass Index (BMI): 29.4 Surgical Procedure: Operation Date: 10/08/23 13:55 Proposed Procedure Side Surgeon p Wrist ECTR Left Mynor Moreno MD Meds Allergies and Home Medications Allergies Allergy/AdvReac Type Severity Reaction Status Date / Time Sulfa (Sulfonamide Allergy Verified 10/08/23 11:10 Antibiotics) escitalopram oxalate AdvReac Intermediate DIDN'T Verified 10/08/23 11:10 [From Lexapro] LIKE THE WAY IT MADE HER FEEL simvastatin AdvReac Intermediate myalgia Verified 10/08/23 11:10 and rash Home Medication Medication Instructions Recorded Cpap DAILY 09/12/13 lutein 25 mg-zeaxanthin 5 mg 1 cap PO DAILY 12/27/20 capsule (Ocuvite Lutein) acetaminophen 500 mg tablet See Rx Instructions PO BID ##2 03/15/22 bupropion HCl 100 mg tablet,12 hr 100 mg PO DAILY #90 tab-caps 11/07/22 sustained-release (Wellbutrin SR) levothyroxine 50 mcg tablet 50 mcg PO DAILY #90 tab-caps 11/07/22 losartan 100 mg tablet 100 mg PO DAILY #90 tab-caps 11/07/22 warfarin 5 mg tablet 5 - 10 mg PO HS #100 tab-caps 11/07/22 latanoprost 0.005 % eye drops 1 drp ophthalmic (eye) DAILY 12/03/22 amlodipine 2.5 mg tablet 2.5 mg PO DAILY #90 tab-caps 03/19/23 meclizine 25 mg tablet 25 mg PO TID PRN dizziness #30 tabs 09/28/23 Current Visit Medications: Current Medications Generic Name Dose Route Start Last Admin Trade Name Freq PRN Reason Stop Dose Admin Ringer's Solution 1,000 mls @ 80 mls/hr 10/08/23 06:00 IV 10/08/23 16:00 INFUSION AJAY Cefazolin Sodium/Dextrose 2 gm in 50 mls @ 100 mls/hr 10/08/23 06:00 Ancef Duplex IVPB 10/08/23 16:00 PREOP AJAY IV Miscellaneous Supplies 1 each 10/08/23 06:00 Iv Access IV 10/08/23 16:00 DIRECTED AJAY Sodium Chloride 0 ml 10/08/23 06:00 Normal Saline Flush 10 Ml Syr IV 10/08/23 16:00 PRN PRN Sodium Chloride 0 ml 10/08/23 06:00 Normal Saline 10 Ml Vial IJ 10/08/23 16:00 DIRECTED PRN Sterile Water 0 ml 10/08/23 06:00 Water,Injection,Sterile 10 Ml Vial IJ 10/08/23 16:00 DIRECTED PRN PFSH Active Problems Active Problems: Problem Status Onset Code Vertigo R42 Left carpal tunnel syndrome G56.02 Skin lesions L98.9 Fatigue R53.83 Numbness and tingling in left hand R20.0, R20.2 Acquired skin tag L91.8 Macular degeneration of both eyes ~06/2020 H35.30 Chronic anticoagulation Z79.01 Stress incontinence in female 09/24/14 N39.3 Rectocele 09/30/13 N81.6 Primary osteoarthritis of both knees 11/14/15 M17.0 Polyp of colon K63.5 Other pulmonary embolism without acute cor pulmonale I26.99 Obstructive sleep apnea syndrome 12/08/09 G47.33 Low back pain M54.5 Iatrogenic pulmonary embolism and infarction 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.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, I26.99 Hyperlipidemia E78.5 Graves' disease E05.00 Generalized osteoarthrosis M15.9 Essential hypertension 09/17/13 I10 Eczema 07/14/15 L30.9 Depression F32.9 Abnormal ECG 10/10/07 R94.31 Chronic rhinitis J31.0 Chronic otitis externa 07/14/15 H60.60 Medical History Medical History Hives of unknown origin Prolapse of vaginal coyle without uterine prolapse Osteoarthritis Surgical History Surgical History 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 Abdominal hysterectomy Hemorrhoidectomy Tobacco Smoking/Tobacco Use Status: Former Tobacco Use Passive smoking exposure: No Second hand exposure: Yes Alcohol Alcohol Intake: current Alcohol intake frequency: a few times a week Alcohol type: wine Substance Use Substance use: Never Substance use type: does not use Vital Signs and Lab Results Vital Signs Most Recent Vital Signs in EMR: Most Recent Vital Signs Temp Pulse Resp BP Pulse Ox 36.7 C 68 18 150/69 H 98 10/08/23 11:13 11/28/23 11:13 10/08/23 11:13 10/08/23 11:13 10/08/23 11:13 Lab Results Blood Type / Crossmatch: No Data to Display Complete Blood Count: White Blood Count 4.99 10^3/uL (4.4-10.8) 09/28/23 09:45 Red Blood Count 4.36 10^6/uL (3.93-5.22) 09/28/23 09:45 Hemoglobin 13.9 g/dL (11.2-15.7) 09/28/23 09:45 Hematocrit 41.3 % (36.0-46.0) 09/28/23 09:45 Platelet Count 206 10^3/uL (130-400) 09/28/23 09:45 Complete Metabolic Panel: Sodium 137 mmol/L (136-145) 09/28/23 09:45 Potassium 4.2 mmol/L (3.5-5.1) 09/28/23 09:45 Chloride 104 mmol/L (98-107) 09/28/23 09:45 Carbon Dioxide 27.1 mmol/L (21.0-32.0) 09/28/23 09:45 BUN 28 mg/dL (7-18) H 09/28/23 09:45 Creatinine 0.7 mg/dL (0.55-1.02) 09/28/23 09:45 Est GFR (CKD-EPI 2020) 84.17 (mL/min/1.73m2) 09/28/23 09:45 Magnesium 2.0 mg/dL (1.8-2.4) 09/28/23 09:45 Calcium 9.4 mg/dL (8.5-10.1) 09/28/23 09:45 Albumin 3.9 g/dL (3.4-5.0) 09/28/23 09:45 Glucose 106 mg/dL (74-106) 09/28/23 09:45 Liver Function Panel: Alanine Aminotransferase (ALT/SGPT) 22 U/L (14-59) 09/28/23 09: 45 Aspartate Amino Transf (AST/SGOT) 20 U/L (15-37) 09/28/23 09:45 Coagulation Panel: INR International Normalized Ratio 2.5 (0.9-1.1) H 09/28/23 09 :45 Prothrombin Time 23.5 sec (9.1-11.1) H 09/28/23 09:45 Activated Partial Thromboplast Time 33.0 sec (23.6-32.8) H 09/28/23 09:45 Cardiac Panel: Troponin I < 50 ng/L (<or=60) 09/28/23 Arterial Blood Gas: No Data to Display Venous Blood Gas: No Data to Display Pancreas Panel: No Data to Display Thyroid Panel: No Data to Display Infectious Disease: No Data to Display Blood Cultures: No Data to Display Toxicology Panel: No Data to Display Imaging and Studies Imaging and Studies Study information below may be from another EMR and interpreted by another provider. Please see original notes in EMR for more complete details. EKG Summary: 09/28/23: Exam: Resting ECG Reason for Exam: Dizziness Patient Location: E HR:73 bpm ECG Measurements Heart Rate 73 AXIS RI 162 P 57 QRSd 148 QRS -8 QT 423 T168 QTc 466 Conclusion Sinus rhythm...normal P axis, V-rate 60- 99 Probable left atrial enlargement...P >50mS, <-0.10mV V1 Left bundle branch block...QRSd>120, broad/notched R sinus rhythm, left axis, LBBB unchanged from prior I have reviewed and I agree with the emergency room physician's ECG interpretation. Anesthesia Assessment and Plan Anesthesia History Personal History: No History of Anesthesia Complications Family History: No Family History of Anesthesia Complications Exercise Tolerance Exercise Tolerance: Metabolic Equivalents>4 Cardiac & Pulmonary Exam Cardiac Exam: Normal S1/S2 Heart Sounds Pulmonary Exam: Clear Bilateral Breath Sounds Implantable Cardiac Device Does patient have a Pacemaker or an ICD?: No Airway Exam Known Difficult Airway: No Mallampati Class: 1 Mouth Opening: Normal (> 3cm) Thyromental Distance: Greater than 3 cm Neck Range of Motion: Full ROM Neck Circumference: Normal Teeth Condition: Normal Dentition ASA Classification ASA Score: ASA 3 Emergency Case?: No NPO Status NPO Status: NPO Clears >2 hours, Solids >8 hours Anesthesia Plan Resuscitation Status: Full Code Anesthesia Technique: General Anesthesia Airway Planned: Natural Airway Monitors Used: Standard Monitors
[2023-10-08] MEDS: Lactated Ringers 1,000 ML 80 ML IV (11:45)
[2023-10-08 11:46] VITALS: BMI 29.4
[2023-10-08] MEDS: ceFAZolin 2 GM/50 ML BAG IVPB (12:13)
[2023-10-08] MEDS: Lidocaine 1% Multi-Dose W/EPI 1/100,000 50 ML VIAL (12:25)
--- NOTE | 2023-10-08 12:31 | PDOC.DSDIS_ITS ---
Date of service: 10/08/23 Time of Service: 12:32 Discharge Plan Disposition Patient Disposition: Home Condition: Good Discharge Details Reason For Visit: Left carpal tunnel syndrome Attending Provider: Mynor Moreno Primary Care Provider: Darshan Hansen Home Meds and New Rx's Prescriptions: Continued lutein-zeaxanthin [Ocuvite Lutein 25] 25-5 mg capsule 1 cap PO DAILY amlodipine 2.5 mg tablet 2.5 mg PO DAILY Qty: 90 4RF latanoprost 0.005 % drops 1 drp ophthalmic (eye) DAILY CPAP DAILY Rx Instructions: [facility], [facility] acetaminophen 500 mg tablet See Rx Instructions PO BID Qty: 2 Patient Comments: 03/16/19 takes 2 tablets AM, 1 tablet at HS DL Rx Instructions: 2 tabs AM, 1 tab PM PO twice a day; bupropion HCl [Wellbutrin SR] 100 mg tablet sustained-release 12 hr 100 mg PO DAILY Qty: 90 3RF levothyroxine 50 mcg tablet 50 mcg PO DAILY Qty: 90 4RF Rx Instructions: 1 TAB DAILY losartan 100 mg tablet 100 mg PO DAILY Qty: 90 4RF Rx Instructions: instead of Diovan warfarin 5 mg tablet 5 - 10 mg PO HS MDD 10mg Qty: 100 4RF Protocol: Dose Management Condition: Saturday Dose/Route: 5 mg Instruction: 1 x 5 mg tablet Condition: Saturday Dose/Route: 2.5 mg Instruction: 0.5 x 5 mg tablets Condition: Saturday Dose/Route: 5 mg Instruction: 1 x 5 mg tablet Condition: Saturday Dose/Route: 2.5 mg Instruction: 0.5 x 5 mg tablets Condition: Dose/Route: 5 mg Instruction: 1 x 5 mg tablet Condition: Saturday Dose/Route: 2.5 mg Instruction: 0.5 x 5 mg tablets Condition: Saturday Dose/Route: 5 mg Instruction: 1 x 5 mg tablet Protocol Text: Adjustment Start Date: 09/19/23 INR Value: 2.7 INR Date: 09/19/23 Recheck Date: 10/19/23 Rx Instructions: TAKE 0-2 TABS DIRECTED BY [facility] BASED ON BLOOD TEST meclizine 25 mg tablet 25 mg PO TID PRN (Reason: dizziness) Qty: 30 0RF Discharge Instructions Stand Alone Forms: Tiffanie Dacosta Tunnel Release Referrals: Mynor Moreno MD [ [facility] STAFF PHYSICIAN] - Activity:: Elevate Remove Dressings/Wound Care:: 48 hours Shower/Bathe:: 48 hours Diet:: As Tolerated Discharge Orders Discharge Orders: Discharge Order (Routine); Ordered 10/08/23 Ordered By: Lizbeth Ferrara
[2023-10-08 12:37] VITALS: BP 136/67; PULSE 60; RESP 16; TEMP 36.5; O2SAT 97
--- NOTE | 2023-10-08 12:50 | W.PM.OP ---
Date of service: 10/08/23 Time of Service: 12:15 Operative Note Operative Note DATE OF PROCEDURE: 10/08/23 PRE-OP DIAGNOSIS: Left Carpal Tunnel Syndrome POST-OP DIAGNOSIS: same PROCEDURE: Left Endoscopic Carpal Tunnel Release SURGEON: Mynor Moreno ANESTHESIA TYPE: General:No Airway Refer to Anesthesia Record ESTIMATED BLOOD LOSS: 0 PATHOLOGY: none sent TOURNIQUET TIME: 3 COMPLICATIONS: None Patient was transported to: same day Patient's condition: stable Indications: I have seen Aziza in clinic for symptoms of carpal tunnel syndrome. The numbness, tingling, and pain limited function. Clinical exam findings confirmed the diagnosis of carpal tunnel syndrome. Nonoperative measures such as bracing, time, activity modifications had been tried but disability and pain persisted. I discussed carpal tunnel release with the patient. I reviewed the risks of the procedure to include, but not limited to, bleeding, infection, pain, stiffness, incomplete release, damage to nerves or vessels, persistent numbness, recurrence. Despite these risks, the patient elected to proceed. Findings: There was tightened carpal tunnel. This was dilated and released successfully with the endoscopic with increased space within the tunnel. The antebrachial fascia was released proximally freeing the median nerve at the wrist. Procedure Description: Aziza was greeted in the preoperative holding area where the correct side was identified and marked. The consent was reviewed with the patient and signed. The history and physical was updated. All questions were answered. She was taken back to the operating room. The patient was placed into the supine position on the operating room table with the left arm on an arm board. A nonsterile tourniquet was placed high onto the arm. All bony prominences were well padded. Prophylactic antibiotics in the form of Cefazolin were administered. The left arm was then prepped with Chloraprep and draped in a standard fashion with stockinette and extremity drape. A timeout to confirm correct identity, side and site, procedure, allergies, anesthesia, and medical concerns was performed. The surgical site was marked in the volar wrist creases in line with the radial border of the fourth ray. This area was anesthetized with approximately 6cc of 1% Lidocaine. The limb was then exsanguinated with an Esmarch. The skin was incised with a 15 blade, approximately 1cm. The skin only was cut and the deeper tissue was dissected bluntly with a tenotomy scissor, avoiding passing nerve and venous structures. The fascia was penetrated and opened bluntly. A two-prong skin hook was placed under this proximal fascial edge. A series of hamate finders were used to identify and dilate the carpal tunnel. Synovial elevator was used to free synovial attachments to the underside of the transverse carpal ligament. My thumb was kept in the palm to donnie the distal extent of the carpal tunnel and correctly position the hand. The Microaire endoscope was inserted without difficulty and without resistance. Excellent visualization showed horizontally running fibers of the transverse carpal ligament (TCL). The distal extent of the TCL was visualized and the end of the scope palpated with the thumb. The blade was elevated and withdrawn from distal to proximal. The TCL was split into two flaps. The endoscope was reinserted to confirm complete release and any remnant ligament was incised. The scope was withdrawn and the proximal aspect of the carpal tunnel was grossly inspected and appeared release with the median nerve visible. The antebrachial fascia at the level of the wrist was then freed from the overlying skin and then the underlying median nerve with blunt dissection. This was transected longitudinally for about 3cm proximal to the wrist incision. The wound was then irrigated with easy flow of irrigant distally and proximally. The incision was closed with a single 4-0 Nylon suture. The wound was dressed with Xeroform, Gauze, Kerlix and Johnie. The tourniquet was deflated with the initial dressing and held with some pressure. Blood flow returned easily to all digits with capillary refill less than 2 seconds. The patient tolerated the procedure well and was returned to the Same Day Surgery area in a stable condition suffering no known complication.
[2023-10-08 13:17] VITALS: BP 151/68; PULSE 57; RESP 18; O2SAT 97
--- NOTE | 2023-10-08 13:20 | W.ANESPOSTOP ---
Postoperative Evaluation Date, Time and Location Date Performed: 10/08/23 Time Performed: 13:20 Patient Location: Day Surgery Unit Vital Signs Most Recent Imported Vital Signs: Most Recent Vital Signs Temp Pulse Resp BP Pulse Ox 36.5 C 57 L 18 151/68 H 97 10/08/23 12:37 10/08/23 13:17 10/08/23 13:17 10/08/23 13:17 10/08/23 13:17 Pain Score Most Recent Pain Score: Most Recent Pain Score Pain Level 0 10/08/23 13:17 Assessment Mental Status: Awake (Alert & Oriented to Patient Baseline) Airway and Respiratory Function: Patent airway with normal (patient baseline) respiratory exam Cardiovascular Function: Hemodynamically Stable Hydration Status: Adequately Hydrated Nausea & Vomiting: No Nausea or Vomiting Pain: Pt. Denies Any Pain Peripheral Nerve Block: Patient did not receive a nerve block
== END 2023-10-08 14:03 | disposition home or self-care (01) ==
PROVIDERS: PCP Nurse Practitioner Family; Visit Provider Student in an Organized Health Care Education/Training Program
PROC: 01N54ZZ Release Median Nerve, Percutaneous Endoscopic Approach (ICD-10-PCS; CPT 29848; principal; 2023-10-08 13:45)
DX: G56.02 Carpal tunnel syndrome, left upper limb (principal)
CPT/HCPCS: 29848; J0690; J2405; J2704; J3010

== ENCOUNTER → 2023-10-18 10:44 | Outpatient (BNVA) | payer MEDICARE, SELFPAY | PROVIDERS: PCP Nurse Practitioner Family; Referring Provider Nurse Practitioner Family | DX: Z47.89 Encounter for other orthopedic aftercare (principal); G56.02 Carpal tunnel syndrome, left upper limb ==

== ENCOUNTER 2023-10-21 05:28 | Outpatient (CLI) | payer MEDICARE, SELFPAY ==
[2023-10-21 13:52] LABS: INR 2.1 (0.9-1.1); Prothrombin Time 20.1 sec (9.1-11.1)
== END 2023-10-21 05:29 | disposition home or self-care (01) ==
LOC: LBO 05:29
PROVIDERS: PCP Nurse Practitioner Family; Visit Provider Nurse Practitioner Family
DX: I26.99 Other pulmonary embolism without acute cor pulmonale (principal); Z79.01 Long term (current) use of anticoagulants
CPT/HCPCS: 36415; 85610

== ENCOUNTER 2023-11-28 04:17 | Outpatient (CLI) | payer MEDICARE, SELFPAY ==
[2023-11-28 14:22] LABS: INR 3.7 (0.9-1.1); Prothrombin Time 33.5 sec (9.1-11.1)
== END 2023-11-28 04:18 ==
LOC: LBO 04:18
PROVIDERS: PCP Nurse Practitioner Family; Visit Provider Nurse Practitioner Family
DX: I26.99 Other pulmonary embolism without acute cor pulmonale (principal)
CPT/HCPCS: 36415; 85610; J1040

== ENCOUNTER 2023-12-05 04:06 | Outpatient (CLI) | payer MEDICARE, SELFPAY ==
[2023-12-05 11:30] LABS: INR 2.8 (0.9-1.1); Prothrombin Time 25.7 sec (9.1-11.1)
== END 2023-12-05 04:07 | disposition home or self-care (01) ==
PROVIDERS: PCP Nurse Practitioner Family; Visit Provider Nurse Practitioner Family
DX: I26.99 Other pulmonary embolism without acute cor pulmonale (principal)
CPT/HCPCS: 36415; 85610

== ENCOUNTER 2023-12-13 03:42 | Outpatient (CLI) | payer MEDICARE, SELFPAY ==
[2023-12-13 13:22] LABS: INR 2.8 (0.9-1.1); Prothrombin Time 25.6 sec (9.1-11.1)
== END 2023-12-13 03:43 | disposition home or self-care (01) ==
LOC: LBO 03:43
PROVIDERS: PCP Nurse Practitioner Family; Visit Provider Nurse Practitioner Family
DX: I26.99 Other pulmonary embolism without acute cor pulmonale (principal)
CPT/HCPCS: 36415; 85610

== ENCOUNTER 2023-12-26 14:31 | Outpatient (REF) | payer MEDICARE, SELFPAY ==
[2023-12-26 21:16] LABS: Absolute Basophil Count 0.06 10^3/uL (0.0-0.2); Absolute Eosinophil Count 0.37 10^3/uL (0.0-0.7); Absolute Monocyte Count 0.47 10^3/uL (0.1-0.8); Absolute Neutrophil Count 3.34 10^3/uL (1.2-6.7); Eosinophils % 6.2; HCT 40.8 % (36.0-46.0); HGB 13.5 g/dL (11.2-15.7); Lymphocytes % 28.6; MCHC 33.1 % (32.0-36.0); MCV 94 fL (80-95); MPV 9.7 fL (8.0-11.0); Monocytes % 7.9; Neutrophils % 56.3; Platelet Count 242 10^3/uL (130-400); RBC 4.35 10^6/uL (3.93-5.22); RDW 12.5 % (11.7-14.6); RDW-SD 43.1 fL; WBC 5.94 10^3/uL (4.4-10.8)
[2023-12-26 22:36] LABS: ALT 23 U/L (14-59); AST 19 U/L (15-37); Albumin 3.8 g/dL (3.4-5.0); Alkaline Phosphatase 80 U/L (46-116); Anion Gap 13.3 mmol/L (3-11); BUN 24 mg/dL (7-18); Bilirubin, Total 0.7 mg/dL (0.2-1.0); CO2 24.7 mmol/L (21.0-32.0); CREATININE 0.8 mg/dL (0.55-1.02); Calcium 9.2 mg/dL (8.5-10.1); Chloride 106 mmol/L (98-107); Estimated GFR 71.71 (mL/min/1.73m2); Glucose 177 mg/dL (74-106); Potassium 4.1 mmol/L (3.5-5.1); Sodium 144 mmol/L (136-145); TSH (W/Ref FT4) 2.69 uIU/mL (0.36-3.74); Total Protein 6.8 g/dL (6.4-8.2); Vitamin B12 689 pg/mL (193-986)
[2023-12-30 10:09] LABS: Syphilis Serology (RPR) Negative (Negative)
== END 2023-12-26 14:32 | disposition home or self-care (01) ==
LOC: LBN 14:31
PROVIDERS: PCP Nurse Practitioner Family; Referring Provider Nurse Practitioner Family; Visit Provider Nurse Practitioner Family
DX: R41.3 Other amnesia (principal); N39.0 Urinary tract infection, site not specified
CPT/HCPCS: 80053; 87077; 82607; 84443; 85025; 86592; 87086; 87186

== ENCOUNTER → 2023-12-30 09:43 | Outpatient (BNVA) | payer MEDICARE, SELFPAY | PROVIDERS: PCP Nurse Practitioner Family; Visit Provider Student in an Organized Health Care Education/Training Program | DX: M17.0 Bilateral primary osteoarthritis of knee (principal) | CPT/HCPCS: 20610; J7325 ==

== ENCOUNTER 2024-01-03 10:31 | Outpatient (CLI) | payer MEDICARE, SELFPAY ==
[2024-01-03 15:05] LABS: INR 2.4 (0.9-1.1); Prothrombin Time 22.7 sec (9.1-11.1)
[2024-01-03 21:28] LABS: Bilirubin Negative (Negative); Blood Negative (Negative); Clarity Clear (Clear); Glucose Negative (Negative); Ketones Trace mg/dL (Negative); Leukocyte Esterase Small (Negative); Nitrite Negative (Negative); Urobilinogen 0.2 mg/dL (Up to 0.2)
[2024-01-03 21:41] LABS: Epithelial Cells Few HPF (Negative); RBC 0-2 HPF (0-2)
[2024-01-03 21:42] LABS: Bacteria Moderate HPF (Negative); C & S Indicated? Yes; Casts Negative LPF (Negative); Crystals Negative HPF (Negative); Mucus Trace (Negative)
== END 2024-01-03 10:32 ==
LOC: LBO 01-08 10:33
PROVIDERS: PCP Nurse Practitioner Family; Visit Provider Nurse Practitioner Family
DX: I26.99 Other pulmonary embolism without acute cor pulmonale (principal); N39.3 Stress incontinence (female) (male)
CPT/HCPCS: 36415; 87077; 81003; 81015; 85610; 87086; 87186

== ENCOUNTER 2024-01-15 16:48 | Outpatient (REF) | payer MEDICARE, SELFPAY ==
[2024-01-15 13:27] LABS: Bilirubin Negative (Negative); Blood Trace-lysed (Negative); Clarity Cloudy (Clear); Glucose Negative (Negative); Ketones Negative (Negative); Leukocyte Esterase Large (Negative); Nitrite Positive (Negative); Urobilinogen 0.2 mg/dL (Up to 0.2)
[2024-01-15 13:38] LABS: Bacteria Many HPF (Negative); C & S Indicated? No/Sq. Contamination; Casts 0-2 Hyaline LPF (Negative); Crystals Negative HPF (Negative); Epithelial Cells Many HPF (Negative); Mucus Negative (Negative); RBC 0-2 HPF (0-2); WBC 20-50 HPF (0-5)
== END 2024-01-15 16:49 | disposition home or self-care (01) ==
LOC: LBN 16:48
PROVIDERS: PCP Nurse Practitioner Family; Referring Provider Nurse Practitioner Family; Visit Provider Nurse Practitioner Family
DX: R82.998 Other abnormal findings in urine (principal); R39.89 Other symptoms and signs involving the genitourinary system
CPT/HCPCS: 81003; 81015

== ENCOUNTER 2024-01-27 07:30 | Emergency (ER) | payer MEDICARE, SELFPAY ==
[2024-01-27 07:32] VITALS: BP 168/50; PULSE 82; RESP 16; TEMP 36.5; O2SAT 96
--- NOTE | 2024-01-27 07:45 | DI.RAD_ITS ---
Exam(s) XR RIBS RT PA CHEST 3V EXAM: XR RIBS RT PA CHEST 3V CLINICAL HISTORY: cough, right rib pain. TECHNIQUE: 2D digital imaging was performed. COMPARISON: CT CT BRAIN NECK CTA from 09/28/2023 FINDINGS: Four views: Right ribs-three views: No evidence of acute right rib fracture nor right rib lesion. Ipsilateral cl avicle is intact. Chest [id number] PA view: Heart size normal. The mediastinum is not widened. No infiltrates nor p leural effusions and no pneumothorax. There is a peripherally calcified structure in the upper left mediastinum measuring 2.3 by 1.8 cm. There is also widening of the superior left mediastinum at this level. This corresponds to abnormally enlarged thyroid gland with calcified nodules in left lobe as seen on CT angiography of 09/28/2023. IMPRESSION: No right rib fracture seen. Lungs are clear. No pneumothorax. Incidentally noted is calcified nodule with measurements as above in an enlarged thyroid gland, as se en on CT scan of 09/28/2023. DATA REPOSITORY: RADIATION DOSE DELIVERED:
[2024-01-27 07:48] VITALS: RESP 18
--- NOTE | 2024-01-27 07:48 | W.ED.GENAD ---
Discharge Plan Disposition Patient Disposition: Home Condition: Stable Discharge Details Clinical Impression: Cough, Chronic UTI Primary Care Provider: Darshan Hansen ED Provider: Pablito Marroquin Home Meds and New Rx's Prescriptions: New cefpodoxime 200 mg tablet 200 mg PO BID 7 Days Qty: 14 0RF Rx Instructions: must administer with a meal/food No Action lutein-zeaxanthin [Ocuvite Lutein 25] 25-5 mg capsule 1 cap PO DAILY latanoprost 0.005 % drops 1 drp ophthalmic (eye) DAILY CPAP DAILY Rx Instructions: SLEEP [facility], [facility] acetaminophen 500 mg tablet See Rx Instructions PO BID Qty: 2 Patient Comments: 03/16/19 takes 2 tablets AM, 1 tablet at HS DL Rx Instructions: 2 tabs AM, 1 tab PM PO twice a day; warfarin 5 mg tablet 5 - 10 mg PO HS MDD 10mg Qty: 100 4RF Protocol: Dose Management Condition: Saturday Dose/Route: 5 mg Instruction: 1 x 5 mg tablet Condition: Saturday Dose/Route: 2.5 mg Instruction: 0.5 x 5 mg tablets Condition: Saturday Dose/Route: 5 mg Instruction: 1 x 5 mg tablet Condition: Saturday Dose/Route: 2.5 mg Instruction: 0.5 x 5 mg tablets Condition: Dose/Route: 2.5 mg Instruction: 0.5 x 5 mg tablets Condition: Saturday Dose/Route: 2.5 mg Instruction: 0.5 x 5 mg tablets Condition: Saturday Dose/Route: 5 mg Instruction: 1 x 5 mg tablet Protocol Text: Adjustment Start Date: Saturday01/03/24 INR Value: 2.4 INR Date: 01/03/24 Recheck Date: 02/02/24 Rx Instructions: TAKE 0-2 TABS DIRECTED BY [facility] MED BASED ON BLOOD TEST losartan 100 mg tablet 100 mg PO DAILY Qty: 90 4RF Rx Instructions: instead of Diovan levothyroxine 50 mcg tablet 50 mcg PO DAILY Qty: 90 4RF Rx Instructions: 1 TAB DAILY bupropion HCl [Wellbutrin SR] 100 mg tablet sustained-release 12 hr 100 mg PO DAILY Qty: 90 3RF amlodipine 2.5 mg tablet 2.5 mg PO DAILY Qty: 90 4RF Discharge Instructions Instructions: Urinary Tract Infection in Women (ED), Acute Cough (ED) HPI General Date/Time Provider Initiated Documentation: 01/27/24 07:32. 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 Compliant with anticoagulation. Patient Dors that this feels different than her prior PEs. Also recovering from a urinary tract infection Related Data Home Medications Medication Instructions Recorded Confirmed Cpap DAILY 09/12/13 12/31/23 lutein 25 mg-zeaxanthin 5 mg 1 cap PO DAILY 12/27/20 01/27/24 capsule (Ocuvite Lutein) acetaminophen 500 mg tablet See Rx Instructions PO BID ##2 03/15/22 01/27/24 warfarin 5 mg tablet 5 - 10 mg PO HS #100 tab-caps 11/07/22 01/27/24 latanoprost 0.005 % eye drops 1 drp ophthalmic (eye) DAILY 12/03/22 01/27/24 amlodipine 2.5 mg tablet 2.5 mg PO DAILY #90 tab-caps 12/30/23 01/27/24 bupropion HCl 100 mg tablet,12 hr 100 mg PO DAILY #90 tab-caps 12/30/23 01/27/24 sustained-release (Wellbutrin SR) levothyroxine 50 mcg tablet 50 mcg PO DAILY #90 tab-caps 12/30/23 01/27/24 losartan 100 mg tablet 100 mg PO DAILY #90 tab-caps 12/30/23 01/27/24 cefpodoxime 200 mg tablet 200 mg PO BID 7 days #14 tabs 01/27/24 Previous Rx's Medication Instructions Recorded warfarin 5 mg tablet 5 - 10 mg PO HS #100 tab-caps 11/07/22 amlodipine 2.5 mg tablet 2.5 mg PO DAILY #90 tab-caps 12/30/23 bupropion HCl 100 mg tablet,12 hr 100 mg PO DAILY #90 tab-caps 12/30/23 sustained-release (Wellbutrin SR) levothyroxine 50 mcg tablet 50 mcg PO DAILY #90 tab-caps 12/30/23 losartan 100 mg tablet 100 mg PO DAILY #90 tab-caps 12/30/23 cefpodoxime 200 mg tablet 200 mg PO BID 7 days #14 tabs 01/27/24 Allergies Allergy/AdvReac Type Severity Reaction Status Date / Time escitalopram oxalate AdvReac Intermediate DIDN'T Verified 01/27/24 07:36 [From Lexapro] LIKE THE WAY IT MADE HER FEEL simvastatin AdvReac Intermediate myalgia Verified 01/27/24 07:36 and rash General Stated Complaint: GenMedical UMANG: 3 Review of Systems Narrative: Review of Systems Constitutional: negative Eyes: negative ENT: negative Cardiovascular: negative Respiratory: negative Gastrointestinal: negative : negative Musculoskeletal: Chest wall pain Skin: negative Neurologic: negative Psych: negative Exam Narrative Exam Narrative: Physical Examination General: alert, awake, cooperative, resting comfortably, no acute distress HEENT: normocephalic, atraumatic; PERRL, EOM intact, conjunctiva normal; no nasal discharge; moist mucous membranes, oral and pharyngeal mucosa normal, tolerating secretions Neck: supple, trachea midline; full ROM Chest: normal to inspection Respiratory: normal respiratory effort, speaking in full sentences, clear to auscultation, no wheezing, rales or rhonchi Cardiac: regular rate, regular rhythm, S1S2 intact, no murmurs rubs or gallops GI: abdomen soft, non-tender, non-distended; no palpable mass or hepatosplenomegaly Skin: no lesions, rashes or trauma appreciated Neuro: AAOx3, normal speech, moving all extremities Extremities: No peripheral edema Psych: Appropriate mood and affect Course Vital Signs Vital signs: Vital Signs Temperature 36.5 C 01/27/24 07:32 Pulse 82 01/27/24 07:32 Respiratory Rate 16 01/27/24 07:32 Blood Pressure 168/50 H 01/27/24 07:32 Pulse Oximetry 96 01/27/24 07:32 Temperature 36.5 C 01/27/24 07:32 Temperature Source Temporal Artery Scan 01/27/24 07:32 Pulse 82 01/27/24 07:32 Respiratory Rate 16 01/27/24 07:32 Respiratory Effort Normal 01/27/24 07:47 Blood Pressure 168/50 H 01/27/24 07:32 Pulse Oximetry 96 01/27/24 07:32 Medical Decision Making 88-year-old female history of PE on anticoagulation presents with 1 week of cough productive, acute onset rib discomfort in the setting of heavy coughing this morning, nonpleuritic in nature no associated diaphoresis nausea vomiting or shortness of breath, afebrile nontoxic not hypoxic no peripheral edema, high clinical suspicion for musculoskeletal strain of thoracic cage most also consider cough induced rib fracture versus pleural effusion versus pneumonia versus pleurisy lower suspicion for PE or aortic pathology or ACS. Screening x-ray rib series, trial of nebs steroids anti-inflammatory close reassessment. Will also screen patient's urine as she is concerned that her urinary tract infection might be persistent despite limited symptomatology 10: 19 lungs clear on x-ray resting comfortably. Evidence of persistent UTI. Will initiate cefpodoxime as an outpatient. Home care instructions and return precautions given Quality:[facility] Health Related Social Needs: No Data to Display PFSH All Active Problems (Updated 01/27/24 @ 10:19 by Pablito Marroquin MD) Chronic UTI (Acute) Cough (Acute) Memory change (Acute) Vertigo (Acute) Trochanteric bursitis, right hip (Acute) Skin lesions (Acute) Fatigue (Acute) Numbness and tingling in left hand (Chronic) Acquired skin tag (Acute) Macular degeneration of both eyes (Acute ~06/2020) 06/16/20 [facility] Ophthalmology Adv. 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 Hyperlipidemia (Chronic) Graves' disease (Acute) Hypothyroid 2007 thyroid US diffuse goiter Generalized osteoarthrosis (Chronic) DJD hands and neck and knees Essential hypertension (Chronic 09/17/13) Eczema (Acute 07/14/15) Depression (Acute) stress, with dementia Passed 10/2018 Abnormal ECG (Acute 10/10/07) BBB pattern; 03/18 echo- nl RV,LV, and valves; EF 65% Chronic rhinitis (Chronic) Chronic otitis externa (Acute 07/14/15) Medical History Hives of unknown origin 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 Son No problems noted. Son No problems noted. Mother , age 86 No problems noted. Maternal Grandfather , age 73 No problems noted. Maternal Grandmother , in her 20s from bad surgery No problems noted. Paternal Grandmother , in her 80s No problems noted. Social History Smoking/Tobacco Use Status: Former Tobacco Use tobacco type: cigarettes Quit Date: 11/11/1966 Second Hand Exposure: Yes Smoking risk assessment performed?: Yes Alcohol Intake: current Alcohol Intake frequency: a few times a week Alcohol type: wine Drug use: Never Substance use type: does not use Household members: none Housing: house Communication Needs: Corrective Lenses Do you need help understanding health information?: Rarely Pets and animals: No Sexually active: No Do you think of yourself as: straight/heterosexual Current gender identity: female What is your relationship status?: How often do you talk on the phone with friends or family?: three or more times per week How often do you get together with friends or relatives?: three or more times per week How often do you attend judaism or holiness services?: 4 or more times per year Panel score (0-1 are the most socially isolated patients): 2 Cassandra/Protestant: Quaker Special cassandra needs: No Seatbelt use: always Drive intox or ride w/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
[2024-01-27] MEDS: Albuterol/Ipratropium 3 ML UPD VIAL UPD (07:52)
[2024-01-27] MEDS: Dexamethasone 10 MG/ML VIAL PO (07:52)
[2024-01-27] MEDS: Ketorolac 15 MG/ML VIAL IM (07:52)
[2024-01-27 10:06] LABS: Bilirubin Negative (Negative); Blood Trace-intact (Negative); Clarity Sl Cloudy (Clear); Glucose Negative (Negative); Ketones Negative (Negative); Leukocyte Esterase Large (Negative); Nitrite Positive (Negative); Urobilinogen 0.2 mg/dL (Up to 0.2); pH 5.5 (5-8)
[2024-01-27 10:12] LABS: Bacteria Many HPF (Negative); C & S Indicated? No/Sq. Contamination; Casts 0-2 Hyaline LPF (Negative); Crystals Negative HPF (Negative); Epithelial Cells Moderate HPF (Negative); Mucus Negative (Negative); RBC 0-2 HPF (0-2); WBC 20-50 HPF (0-5)
== END 2024-01-27 10:24 | disposition home or self-care (01) ==
PROVIDERS: Emergency Provider Emergency Medicine; PCP Nurse Practitioner Family
DX: R05.9 Cough, unspecified (principal); N39.0 Urinary tract infection, site not specified; I10 Essential (primary) hypertension; E78.5 Hyperlipidemia, unspecified; Z86.711 Personal history of pulmonary embolism; Z79.01 Long term (current) use of anticoagulants; Z87.891 Personal history of nicotine dependence
CPT/HCPCS: 96372; 99284; 71046; 71100; 81003; 81015; J1100; J1885; J7620

== ENCOUNTER 2024-02-14 11:18 | Emergency (ER) | payer MEDICARE, SELFPAY ==
[2024-02-14 11:48] VITALS: BP 172/67; PULSE 78; RESP 18; TEMP 36.7; O2SAT 95
--- NOTE | 2024-02-14 13:42 | W.ED.GENAD ---
Discharge Plan Disposition Patient Disposition: Home Condition: Improving Discharge Details Chief Complaint: Orthopedic Clinical Impression: Fall, Contusion of hip, left, Contusion of knee, right, Abrasion of knee, left Primary Care Provider: Darshan Hansen ED Provider: Zakia Gage Home Meds and New Rx's Prescriptions: No Action lutein-zeaxanthin [Ocuvite Lutein 25] 25-5 mg capsule 1 cap PO DAILY latanoprost 0.005 % drops 1 drp ophthalmic (eye) DAILY CPAP DAILY Rx Instructions: SLEEP [facility], [facility] acetaminophen 500 mg tablet See Rx Instructions PO BID Qty: 2 Patient Comments: 03/16/19 takes 2 tablets AM, 1 tablet at HS DL Rx Instructions: 2 tabs AM, 1 tab PM PO twice a day; warfarin 5 mg tablet 5 - 10 mg PO HS MDD 10mg Qty: 100 4RF Protocol: Dose Management Condition: Saturday Dose/Route: 5 mg Instruction: 1 x 5 mg tablet Condition: Saturday Dose/Route: 2.5 mg Instruction: 0.5 x 5 mg tablets Condition: Saturday Dose/Route: 5 mg Instruction: 1 x 5 mg tablet Condition: Saturday Dose/Route: 2.5 mg Instruction: 0.5 x 5 mg tablets Condition: Dose/Route: 2.5 mg Instruction: 0.5 x 5 mg tablets Condition: Saturday Dose/Route: 2.5 mg Instruction: 0.5 x 5 mg tablets Condition: Saturday Dose/Route: 5 mg Instruction: 1 x 5 mg tablet Protocol Text: Adjustment Start Date: Saturday02/03/24 INR Value: 2.6 INR Date: 02/03/24 Recheck Date: 03/04/24 Rx Instructions: TAKE 0-2 TABS DIRECTED BY [facility] BASED ON BLOOD TEST losartan 100 mg tablet 100 mg PO DAILY Qty: 90 4RF Rx Instructions: instead of Diovan levothyroxine 50 mcg tablet 50 mcg PO DAILY Qty: 90 4RF Rx Instructions: 1 TAB DAILY bupropion HCl [Wellbutrin SR] 100 mg tablet sustained-release 12 hr 100 mg PO DAILY Qty: 90 3RF amlodipine 2.5 mg tablet 2.5 mg PO DAILY Qty: 90 4RF Discharge Instructions Instructions: Fall Prevention for Older Adults (ED), Contusion in Adults (ED), Swollen Knee Joint (ED) Additional Instructions: Call Dr. Moreno's office for a follow-up appointment and recheck. Return here for any new or worrisome symptoms such as headache, vomiting, confusion or any concerns. Take acetaminophen as needed for pain and continue warfarin as previously directed. Discharge Data Discharge Physician: Zakia Gage [facility] General Date/Time Provider Initiated Documentation: 02/14/24 13:42. Limitations to Documentation: no limitations. Information obtained by: patient (And close friend). 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 The fall occurred last night. She denies hitting her head. She denies any headache chest pain or abdominal pain. She denies any dizziness prior to or after the fall. According to her friend she has been acting normally. She has not had any vomiting, visual changes, discharge from her ears or nose. She has been seen for 2 recent UTIs and was placed on antibiotics. She cannot recall the date of her last tetanus shot. She is complaining of pain in the left hip left femur and both knees. She has been able to ambulate but noted swelling next to her knee today and came in for evaluation. She took acetaminophen last night for the pain. She states the pain is moderate in severity and denied any aggravating or alleviating factors. She denies any numbness tingling or weakness. She denies any dysuria or abdominal pain. Related Data Home Medications Medication Instructions Recorded Confirmed Cpap DAILY 09/12/13 02/03/24 lutein 25 mg-zeaxanthin 5 mg 1 cap PO DAILY 12/27/20 02/03/24 capsule (Ocuvite Lutein) acetaminophen 500 mg tablet See Rx Instructions PO BID ##2 03/15/22 02/03/24 warfarin 5 mg tablet 5 - 10 mg PO HS #100 tab-caps 11/07/22 02/03/24 latanoprost 0.005 % eye drops 1 drp ophthalmic (eye) DAILY 12/03/22 02/03/24 amlodipine 2.5 mg tablet 2.5 mg PO DAILY #90 tab-caps 12/30/23 02/03/24 bupropion HCl 100 mg tablet,12 hr 100 mg PO DAILY #90 tab-caps 12/30/23 02/03/24 sustained-release (Wellbutrin SR) levothyroxine 50 mcg tablet 50 mcg PO DAILY #90 tab-caps 12/30/23 02/03/24 losartan 100 mg tablet 100 mg PO DAILY #90 tab-caps 12/30/23 02/03/24 Previous Rx's Medication Instructions Recorded warfarin 5 mg tablet 5 - 10 mg PO HS #100 tab-caps 11/07/22 amlodipine 2.5 mg tablet 2.5 mg PO DAILY #90 tab-caps 12/30/23 bupropion HCl 100 mg tablet,12 hr 100 mg PO DAILY #90 tab-caps 12/30/23 sustained-release (Wellbutrin SR) levothyroxine 50 mcg tablet 50 mcg PO DAILY #90 tab-caps 12/30/23 losartan 100 mg tablet 100 mg PO DAILY #90 tab-caps 12/30/23 Allergies Allergy/AdvReac Type Severity Reaction Status Date / Time escitalopram oxalate AdvReac Intermediate DIDN'T Verified 01/27/24 07:36 [From Lexapro] LIKE THE WAY IT MADE HER FEEL simvastatin AdvReac Intermediate myalgia Verified 01/27/24 07:36 and rash General Stated Complaint: Orthopedic UMANG: 3 Review of Systems Narrative: see hpi Hematologic/Lymphatic Comments: The patient gets her INR checked every month. Exam Narrative Exam Narrative: The patient is a well-developed well-nourished female is alert and oriented x 4. Her GCS is 15. She is pleasant and cooperative. She does not appear in acute distress. Const General: cooperative, healthy appearing, comfortable, no acute distress, well developed, well groomed and well hydrated Nutritional Appearance: average body habitus and well nourished Orientation: alert, awake and oriented x3 [facility] Head: normal to inspection, normocephalic and atraumatic Ears: hearing grossly normal bilaterally and external ears normal General nose exam: external nose normal, nares normal and no nasal discharge Face and sinus: normal facial exam, sinuses nontender and face symmetric Mouth: oral mucosae normal, lip normal, tongue normal, oropharynx normal, moist mucous membranes and other (Normal phonation. The patient is handling secretions.) Throat: posterior oropharynx normal and uvula midline Eyes General: appearance normal, both eyes and all related structures Eyelids: eyelids normal Conjunctivae: conjunctivae normal Sclera: sclerae normal Cornea: corneas normal Pupils: PERRL EOM: EOM intact bilaterally and No nystagmus Neck Neck: normal visual inspection, full ROM, no lymphadenopathy, no meningeal signs, trachea midline and supple Lymphatic: no lymphadenopathy noted Chest Chest: normal inspection of the chest Resp Effort & Inspection: normal respiratory effort, able to speak in complete sentences, no audible wheezes, no nasal flaring, no respiratory distress, no retractions, no stridor, not tachypneic, no tracheal deviation, no use of accessory muscles, No prolonged expiratory phase and other (Normal inspiratory to expiratory ratio.) Auscultation: clear to auscultation bilaterally, no rales, no rhonchi, no wheezes and no rubs Tactile Fremitus: tactile fremitus absent Cardio Jugular venous pressure: no JVD Palpation: normal PMI Rate: regular rate Rhythm: regular rhythm Heart Sounds: S1 normal, S2 normal, no gallops, no murmurs and no rubs GI Inspection: normal to inspection and non-distended Palpation: soft, no hepatosplenomegaly, no guarding and nontender Percussion: normal to percussion Auscultation: normal bowel sounds General: No CVA tenderness Back/Spine/Pelvis Back: no CVA tenderness and No back tenderness Cervical Spine: normal cervical lordosis, cervical ROM normal, No cervical muscular tenderness, No pain with cervical ROM, No cervical spinal tenderness and No step off deformity Thoracic/Lumbar Spine: thoracic and lumbar spine normal to inspection, No thoracic spinal tenderness and No lumbar spinal tenderness Pelvis: no pain with anterior-posterior compression and no pain with lateral compression Skin General skin exam: turgor normal, no petechiae, no purpura and other (Skin is normal for ethnicity.) Rashes: no rashes Other: Superficial abrasion over the left patella. Large hematoma over the distal left femur. Neuro General: patient alert, patient awake, patient oriented x3, moves all extremities, no meningeal signs, no focal motor deficits and CN's II-XI intact bilaterally Cranial Nerves: CN's II-XI intact bilaterally, PERRL, accommodation normal, EOM intact bilaterally, no nystagmus, facial strength normal, tongue midline, hearing normal and no nystagmus Cognition: normal cognition Speech: speech normal Motor: muscle tone normal throughout and strength 5/5 throughout Sensory Exam: no sensory deficits noted Extrem General: full ROM, capillary refill normal, no clubbing, cyanosis or edema and no calf tenderness Other: The patient's lower extremities appear normal she is able to flex and extend and internally and externally rotate her hips. There is a hematoma above the left knee over the distal femur. And a small abrasion over the left patella. There is no active bleeding and appears clean and dry. She is neurovascularly intact. She is able to flex and extend both knees. She is neurovascularly intact. Psych Appearance: grossly normal Affect: normal affect Attitude: cooperative Thought Process: normal Thought Content: normal Insight: insight good Judgment: judgment good Other: The patient appears to have capacity make medical decisions. Course 1534 PM. I have reviewed the patient's films and lab work. They have not been read by the radiologist. I have spoken with him and he will be reading them shortly. 1542 pm I have updated the patient and she will follow-up with Dr. Moreno next week if her x-rays are negative. If positive we will obtain an orthopedic consult Vital Signs Vital signs: Vital Signs Temperature 36.7 C 02/14/24 11:48 Pulse 78 02/14/24 11:48 Respiratory Rate 18 02/14/24 11:48 Blood Pressure 172/67 H 02/14/24 11:48 Pulse Oximetry 95 02/14/24 11:48 Temperature 36.7 C 02/14/24 11:48 Temperature Source Temporal Artery Scan 02/14/24 11:48 Pulse 78 02/14/24 11:48 Respiratory Rate 18 02/14/24 11:48 Blood Pressure 172/67 H 02/14/24 11:48 Blood Pressure Position Sitting 02/14/24 11:48 Pulse Oximetry 95 02/14/24 11:48 Oxygen Delivery Method Room Air 02/14/24 11:48 Oxygen Flow Rate 0 02/14/24 11:48 Medical Decision Making This is a 88-year-old female who appears younger than her stated age who had a mechanical fall at home last night. She is on warfarin therapy, but denies hitting her head or loss of consciousness. She was not dizzy prior to arrival after the fall. She is acting normally according to her friend. She has not had any vomiting and has a normal neurologic exam. I do not see an indication for CT scanning of her head or cervical spine which is nontender without step-off and with full range of motion. Her main complaint is of the right hip pain, bilateral knee pain and pain in the left side. My plan is to obtain plain films of her pelvis left hip left femur and bilateral knees. I will also check her blood work and INR as well as her electrolytes renal function and liver function test. I will observe her in the department for any deterioration and we will order a CT scan of her head and neck if she deteriorates. She also has an abrasion over her left knee and we will update her tetanus shot. There is no evidence of foreign body or open fracture. She has not taken any acetaminophen since last night and I will write for IV acetaminophen for pain control. Medical Records Medical records reviewed: Yes I reviewed the patient's medical records. Imaging Data Radiologic Study: Imaging: X-Ray (Pelvis) Radiologist's impression: No acute abnormality. Radiologic Study #2: Imaging: X-Ray (Left femur) Radiologist's impression: No acute abnormality. Radiologic Study #3: Imaging: X-Ray (Left knee) Radiologist's impression: No acute abnormality Radiologic Study #4: Imaging: X-Ray (Right knee) Radiologist's impression: Degenerative changes no acute abnormality Lab Data Lab results reviewed: Yes I reviewed the patient's lab results. Lab results narrative: PT is therapeutic Quality:SDOH Health Related Social Needs: No Data to Display Critical Care Time Critical Care Time Critical Care Time: Yes Total Critical Care Time: 37 Attestation: This includes time at the bedside including frequent updates, discussion with the radiologist and review of plain films and lab work. PFSH All Active Problems (Updated 02/14/24 @ 16:11 by Zakia Gage MD) Abrasion of knee, left (Acute) Contusion of knee, right (Acute) Contusion of hip, left (Acute) Fall (Acute) Chronic UTI (Acute) Cough (Acute) Memory change (Acute) Vertigo (Acute) Trochanteric bursitis, right hip (Acute) Skin lesions (Acute) Fatigue (Acute) Numbness and tingling in left hand (Chronic) Acquired skin tag (Acute) Macular degeneration of both eyes (Acute ~06/2020) 06/16/20 [facility] Ophthalmology Adv. 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; recurred; -extermination supervisor anticoagulant therapy Hyperlipidemia (Chronic) Graves' disease (Acute) Hypothyroid 2007 thyroid US diffuse goiter Generalized osteoarthrosis (Chronic) DJD hands and neck and knees Essential hypertension (Chronic 09/17/13) Eczema (Acute 07/14/15) Depression (Acute) stress, with dementia Passed 10/2018 Abnormal ECG (Acute 10/10/07) BBB pattern; 03/18 echo- nl RV,LV, and valves; EF 65% Chronic rhinitis (Chronic) Chronic otitis externa (Acute 07/14/15) Medical History Hives of unknown origin 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 Son No problems noted. Son No problems noted. Mother , age 86 No problems noted. Maternal Grandfather , age 73 No problems noted. Maternal Grandmother , in her 20s from bad surgery No problems noted. Paternal Grandmother , in her 80s No problems noted. Social History Smoking/Tobacco Use Status: Former Tobacco Use tobacco type: cigarettes Quit Date: 11/11/1966 Second Hand Exposure: Yes Smoking risk assessment performed?: Yes Alcohol Intake: current Alcohol Intake frequency: a few times a week Alcohol type: wine Drug use: Never Substance use type: does not use Household members: none Housing: house Communication Needs: Corrective Lenses Do you need help understanding health information?: Rarely Pets and animals: No Sexually active: No Do you think of yourself as: straight/heterosexual Current gender identity: female What is your relationship status?: How often do you talk on the phone with friends or family?: three or more times per week How often do you get together with friends or relatives?: three or more times per week How often do you attend methodist or buddhism services?: 4 or more times per year Panel score (0-1 are the most socially isolated patients): 2 Cassandra/Rastafari: Baptism Special cassandra needs: No Seatbelt use: always Drive intox or ride w/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
--- NOTE | 2024-02-14 13:58 | DI.RAD_ITS ---
Exam(s) XR PELVIS AP XR KNEE LT 3V AP,LAT,SADE XR FEMUR LT EXAM: XR PELVIS AP CLINICAL HISTORY: trauma. TECHNIQUE: 2D digital imaging was performed. Single AP view. COMPARISON: CR XR pelvis AP from 10/14/2018 CR XR KNEE LT 3V AP,LAT,SADE from 02/14/2024 CR XR FEMUR LT from 02/14/2024 FINDINGS: BONES: No acute fracture is present. No bony destructive lesion is seen. JOINTS: No dislocation present. Stable appearance of bilateral hip prostheses. Degenerative changes of the knee, greatest of the lateral femoral tibial joint. SOFT TISSUE: Normal. IMPRESSION: No acute abnormality. DATA REPOSITORY: RADIATION DOSE DELIVERED:
--- NOTE | 2024-02-14 14:00 | DI.RAD_ITS ---
Exam(s) XR KNEE RT 4V AP,LAT,SADE,PAT EXAM: XR KNEE RT 4V AP,LAT,SADE,PAT CLINICAL HISTORY: trauma. TECHNIQUE: 2D digital imaging was performed. Four views. COMPARISON: CR XR KNEE LT 3V AP,LAT,SADE from 02/14/2024 FINDINGS: BONES: No acute fracture is present. No bony destructive lesion is seen. JOINTS: Moderate to severe narrowing of the lateral femoral tibial joint space and periarticular spur ring. Spurring at the tibial aspect of the patella. No joint effusion is seen. SOFT TISSUE: Normal. IMPRESSION: Degenerative changes. No acute abnormality. DATA REPOSITORY: RADIATION DOSE DELIVERED:
[2024-02-14 14:29] LABS: Abs Immature Grans 0.01 10^3/uL (0.0-0.06); Absolute Basophil Count 0.05 10^3/uL (0.0-0.2); Absolute Eosinophil Count 0.15 10^3/uL (0.0-0.7); Absolute Lymphocyte Count 1.62 10^3/uL (1.2-3.4); Absolute Neutrophil Count 4.64 10^3/uL (1.2-6.7); Basophils % 0.7; Eosinophils % 2.2; HCT 41.5 % (36.0-46.0); HGB 13.4 g/dL (11.2-15.7); Immature Grans % 0.1; Lymphocytes % 23.2; MCH 30.7 pg (27.0-33.0); MCHC 32.3 % (32.0-36.0); MCV 95 fL (80-95); MPV 9.2 fL (8.0-11.0); Monocytes % 7.2; Neutrophils % 66.6; Platelet Count 214 10^3/uL (130-400); RBC 4.37 10^6/uL (3.93-5.22); RDW 12.4 % (11.7-14.6); WBC 6.97 10^3/uL (4.4-10.8)
[2024-02-14] MEDS: ACETAMINOPHEN 1,000 MG/100 ML BTL 400 MG IVPB (14:31)
[2024-02-14 14:45] LABS: ALT 24 U/L (14-59); AST 19 U/L (15-37); Albumin 3.8 g/dL (3.4-5.0); Alkaline Phosphatase 68 U/L (46-116); Anion Gap 7.3 mmol/L (3-11); BUN 20 mg/dL (7-18); Bilirubin, Total 0.7 mg/dL (0.2-1.0); CO2 28.7 mmol/L (21.0-32.0); CREATININE 0.7 mg/dL (0.55-1.02); Calcium 8.8 mg/dL (8.5-10.1); Chloride 102 mmol/L (98-107); Estimated GFR 84.17 (mL/min/1.73m2); Glucose 96 mg/dL (74-106); Potassium 4.2 mmol/L (3.5-5.1); Sodium 138 mmol/L (136-145); Total Protein 7.1 g/dL (6.4-8.2)
[2024-02-14 14:50] LABS: INR 2.5 (0.9-1.1); PTT Activated 33.9 sec (23.6-32.8); Prothrombin Time 23.5 sec (9.1-11.1)
== END 2024-02-14 16:22 | disposition home or self-care (01) ==
PROVIDERS: Emergency Provider Emergency Medicine Emergency Medical Services; PCP Nurse Practitioner Family
DX: S70.02XA Contusion of left hip, initial encounter (principal); S80.01XA Contusion of right knee, initial encounter; S80.211A Abrasion, right knee, initial encounter; I10 Essential (primary) hypertension; Z79.01 Long term (current) use of anticoagulants; Z86.711 Personal history of pulmonary embolism; Z23 Encounter for immunization; Z96.643 Presence of artificial hip joint, bilateral; Z87.891 Personal history of nicotine dependence
CPT/HCPCS: 73552; 73562; 80053; 90471; 90715; 99284; 72170; 73564; 85025; 85610; 85730; J0131

== ENCOUNTER 2024-03-31 05:11 | Outpatient (CLI) | payer MEDICARE, SELFPAY ==
[2024-03-31 14:11] LABS: INR 2.5 (0.9-1.1); Prothrombin Time 23.3 sec (9.1-11.1)
== END 2024-03-31 05:12 | disposition home or self-care (01) ==
PROVIDERS: PCP Nurse Practitioner Family; Visit Provider Nurse Practitioner Family
DX: I26.99 Other pulmonary embolism without acute cor pulmonale (principal)
CPT/HCPCS: 36415; 85610

== ENCOUNTER 2024-04-27 05:54 | Outpatient (CLI) | payer MEDICARE, SELFPAY ==
[2024-04-27 14:02] LABS: INR 3.6 (0.9-1.1)
== END 2024-04-27 05:55 | disposition home or self-care (01) ==
PROVIDERS: PCP Nurse Practitioner Family; Visit Provider Nurse Practitioner Family
DX: Z79.01 Long term (current) use of anticoagulants (principal)
CPT/HCPCS: 36415; 85610

== ENCOUNTER 2024-05-18 03:29 | Outpatient (CLI) | payer MEDICARE, SELFPAY ==
[2024-05-18 14:28] LABS: INR 2.5 (0.9-1.1); Prothrombin Time 23.5 sec (9.1-11.1)
== END 2024-05-18 03:30 | disposition home or self-care (01) ==
PROVIDERS: PCP Nurse Practitioner Family; Visit Provider Nurse Practitioner Family
DX: I26.99 Other pulmonary embolism without acute cor pulmonale (principal); Z79.01 Long term (current) use of anticoagulants
CPT/HCPCS: 36415; 85610

== ENCOUNTER 2024-06-30 02:09 | Outpatient (CLI) | payer MEDICARE, SELFPAY ==
[2024-06-30 15:09] LABS: INR 2.3 (0.9-1.1); Prothrombin Time 21.8 sec (9.1-11.1)
== END 2024-06-30 02:10 | disposition home or self-care (01) ==
PROVIDERS: PCP Nurse Practitioner Family; Visit Provider Nurse Practitioner Family
DX: Z79.01 Long term (current) use of anticoagulants (principal); I26.99 Other pulmonary embolism without acute cor pulmonale
CPT/HCPCS: 36415; 85610

== ENCOUNTER → 2024-07-06 10:13 | Outpatient (BNVA) | payer MEDICARE, SELFPAY | PROVIDERS: PCP Nurse Practitioner Family; Visit Provider Student in an Organized Health Care Education/Training Program | DX: M17.0 Bilateral primary osteoarthritis of knee (principal) | CPT/HCPCS: 20610 ==

== ENCOUNTER 2024-08-03 03:25 | Outpatient (CLI) | payer MEDICARE, SELFPAY ==
[2024-08-03 14:38] LABS: INR 3.1 (0.9-1.1); Prothrombin Time 28.3 sec (9.1-11.1)
== END 2024-08-03 03:26 | disposition home or self-care (01) ==
PROVIDERS: PCP Nurse Practitioner Family; Visit Provider Nurse Practitioner Family
DX: Z79.01 Long term (current) use of anticoagulants (principal); I26.99 Other pulmonary embolism without acute cor pulmonale
CPT/HCPCS: 36415; 85610

== ENCOUNTER 2024-09-30 10:52 | Outpatient (CLI) | payer MEDICARE, SELFPAY ==
[2024-09-30 10:23] LABS: INR 2.5 (0.9-1.1)
== END 2024-09-30 10:53 | disposition home or self-care (01) ==
LOC: LBO 10:53
PROVIDERS: PCP Nurse Practitioner Family; Visit Provider Nurse Practitioner Family
DX: Z79.01 Long term (current) use of anticoagulants (principal)
CPT/HCPCS: 36415; 85610

== ENCOUNTER 2024-11-09 03:08 | Outpatient (CLI) | payer MEDICARE, SELFPAY ==
[2024-11-09 14:13] LABS: Prothrombin Time 27.5 sec (9.1-11.1)
== END 2024-11-09 03:09 | disposition home or self-care (01) ==
PROVIDERS: PCP Nurse Practitioner Family; Visit Provider Nurse Practitioner Family
DX: Z79.01 Long term (current) use of anticoagulants (principal); I26.99 Other pulmonary embolism without acute cor pulmonale
CPT/HCPCS: 36415; 85610

== ENCOUNTER 2024-12-24 14:53 | Outpatient (CLI) | payer MEDICARE, SELFPAY ==
[2024-12-24 13:47] LABS: INR 2.6 (0.9-1.1); Prothrombin Time 24.6 sec (9.1-11.1)
== END 2024-12-24 14:54 | disposition home or self-care (01) ==
LOC: LBO 14:54
PROVIDERS: PCP Nurse Practitioner Family; Visit Provider Nurse Practitioner Family
DX: Z79.01 Long term (current) use of anticoagulants (principal)
CPT/HCPCS: 36415; 85610

== ENCOUNTER → 2025-01-04 09:35 | Outpatient (BNVA) | payer MEDICARE, SELFPAY | PROVIDERS: PCP Nurse Practitioner Family; Referring Provider Nurse Practitioner Family | DX: M17.11 Unilateral primary osteoarthritis, right knee (principal); M17.12 Unilateral primary osteoarthritis, left knee | CPT/HCPCS: 20610; 99213; J7325 ==

== ENCOUNTER 2025-01-08 00:18 | Outpatient (CLI) | payer MEDICARE, SELFPAY ==
--- NOTE | 2025-01-08 10:24 | DI.MAMMO_ITS ---
Exam(s) MAMMO SCREENING EXAM: MAMMO SCREENING CLINICAL HISTORY: screening,Z12.39 TECHNIQUE: Mammograms were interpreted according to the usual protocol including computer analysis w [employer] CAD system, tomosynthesis and C-view imaging. COMPARISON: 2014 through 2022 FINDINGS: The breasts are composed of scattered fibroglandular densities, Breast Density category B. No suspicious masses or suspicious microcalcifications are seen. No skin thickening or abnormal axillary lymph nodes are seen. There has been no significant change from prior exams. IMPRESSION: BI-RADS Category 1, Negative mammogram Yearly screening mammography is recommended. Breast Density - Category B, scattered fibroglandular densities. A negative radiographic report should not delay biopsy if a dominant or clinically suspicious mass is present. Up to ten percent of cancers are not identified on mammography. A negative report may reinforce clinical impression. Adenosis and dense breasts may obscure an underlying neoplasm. False positive reports average 6 to 10%. Patient will receive a letter notifying them of these results.
== END 2025-01-08 00:38 ==
LOC: DI 00:18
PROVIDERS: PCP Nurse Practitioner Family; Visit Provider Nurse Practitioner Family
DX: Z12.31 Encounter for screening mammogram for malignant neoplasm of breast (principal); R92.323 Mammographic fibroglandular density, bilateral breasts
CPT/HCPCS: 77063; 77067

== ENCOUNTER 2025-02-04 02:39 | Outpatient (CLI) | payer MEDICARE, SELFPAY ==
[2025-02-04 11:12] LABS: INR 2.9 (0.9-1.1)
== END 2025-02-04 02:40 | disposition home or self-care (01) ==
LOC: LBO 02:39
PROVIDERS: PCP Nurse Practitioner Family; Visit Provider Nurse Practitioner Family
DX: Z79.01 Long term (current) use of anticoagulants (principal); I26.99 Other pulmonary embolism without acute cor pulmonale
CPT/HCPCS: 36415; 85610

== ENCOUNTER 2025-03-08 00:33 | Outpatient (CLI) | payer MEDICARE, SELFPAY ==
[2025-03-08 15:30] LABS: INR 2.8 (0.9-1.1); Prothrombin Time 26.2 sec (9.1-11.1)
== END 2025-03-08 00:34 | disposition home or self-care (01) ==
PROVIDERS: PCP Nurse Practitioner Family; Visit Provider Nurse Practitioner Family
DX: Z79.01 Long term (current) use of anticoagulants (principal); I26.99 Other pulmonary embolism without acute cor pulmonale
CPT/HCPCS: 36415; 85610

== ENCOUNTER 2025-03-31 03:01 | Outpatient (CLI) | payer MEDICARE, SELFPAY ==
[2025-03-31 13:50] LABS: INR 2.4 (0.9-1.1); Prothrombin Time 22.6 sec (9.1-11.1)
[2025-03-31 14:09] LABS: Anion Gap 3.8 mmol/L (3-11); BUN 21 mg/dL (7-18); CO2 28.2 mmol/L (21.0-32.0); CREATININE 0.7 mg/dL (0.55-1.02); Calcium 8.8 mg/dL (8.5-10.1); Chloride 104 mmol/L (98-107); Estimated GFR 83.65 (mL/min/1.73m2); Glucose 121 mg/dL (74-106); Potassium 4.1 mmol/L (3.5-5.1); Sodium 136 mmol/L (136-145); TSH (W/Ref FT4) 2.93 uIU/mL (0.36-3.74)
== END 2025-03-31 03:02 | disposition home or self-care (01) ==
PROVIDERS: PCP Nurse Practitioner Family; Visit Provider Nurse Practitioner Family
DX: I10 Essential (primary) hypertension (principal); E05.00 Thyrotoxicosis with diffuse goiter without thyrotoxic crisis or storm; Z79.01 Long term (current) use of anticoagulants; I26.99 Other pulmonary embolism without acute cor pulmonale
CPT/HCPCS: 36415; 80048; 84443; 85610

== ENCOUNTER 2025-04-15 03:31 | Outpatient (CLI) | payer MEDICARE, SELFPAY ==
[2025-04-15 14:32] LABS: INR 2.3 (0.9-1.1); Prothrombin Time 21.7 sec (9.1-11.1)
== END 2025-04-15 03:32 | disposition home or self-care (01) ==
PROVIDERS: PCP Nurse Practitioner Family; Visit Provider Nurse Practitioner Family
DX: Z79.01 Long term (current) use of anticoagulants (principal); I26.99 Other pulmonary embolism without acute cor pulmonale
CPT/HCPCS: 36415; 85610

== ENCOUNTER 2025-05-21 01:02 | Outpatient (CLI) | payer MEDICARE, SELFPAY ==
[2025-05-21 10:51] LABS: INR 2.8 (0.9-1.1); Prothrombin Time 26.2 sec (9.1-11.1)
== END 2025-05-21 01:03 | disposition home or self-care (01) ==
PROVIDERS: PCP Nurse Practitioner Family; Visit Provider Nurse Practitioner Family
DX: Z79.01 Long term (current) use of anticoagulants (principal); I26.99 Other pulmonary embolism without acute cor pulmonale
CPT/HCPCS: 36415; 85610

== ENCOUNTER 2025-06-24 03:52 | Outpatient (CLI) | payer MEDICARE, SELFPAY ==
[2025-06-24 11:11] LABS: INR 2.6 (0.9-1.1); Prothrombin Time 24.6 sec (9.1-11.1)
== END 2025-06-24 03:53 | disposition home or self-care (01) ==
PROVIDERS: PCP Nurse Practitioner Family; Visit Provider Nurse Practitioner Family
DX: I26.99 Other pulmonary embolism without acute cor pulmonale (principal)
CPT/HCPCS: 36415; 85610

== ENCOUNTER → 2025-07-05 09:19 | Outpatient (BNVA) | payer MEDICARE, SELFPAY | PROVIDERS: PCP Nurse Practitioner Family; Referring Provider Nurse Practitioner Family; Visit Provider Student in an Organized Health Care Education/Training Program | DX: M17.0 Bilateral primary osteoarthritis of knee (principal) | CPT/HCPCS: 20610; J7325 ==

== ENCOUNTER 2025-07-26 01:46 | Outpatient (CLI) | payer MEDICARE, SELFPAY ==
[2025-07-26 14:52] LABS: INR 2.1 (0.9-1.1); Prothrombin Time 20.4 sec (9.1-11.1)
== END 2025-07-26 01:47 | disposition home or self-care (01) ==
PROVIDERS: PCP Nurse Practitioner Family; Visit Provider Nurse Practitioner Family
DX: I26.99 Other pulmonary embolism without acute cor pulmonale (principal)
CPT/HCPCS: 36415; 85610

== ENCOUNTER 2025-09-01 01:41 | Outpatient (CLI) | payer MEDICARE, SELFPAY ==
[2025-09-01 13:58] LABS: INR 2.8 (0.9-1.1); Prothrombin Time 25.9 sec (9.1-11.1)
== END 2025-09-01 01:42 | disposition home or self-care (01) ==
PROVIDERS: PCP Nurse Practitioner Family; Visit Provider Nurse Practitioner Family
DX: Z79.01 Long term (current) use of anticoagulants (principal); I26.99 Other pulmonary embolism without acute cor pulmonale
CPT/HCPCS: 36415; 85610

== ENCOUNTER 2025-10-04 03:51 | Outpatient (CLI) | payer MEDICARE, SELFPAY ==
[2025-10-04 14:36] LABS: INR 2.7 (0.9-1.1); Prothrombin Time 25.0 sec (9.1-11.1)
== END 2025-10-04 03:52 | disposition home or self-care (01) ==
LOC: LBO 03:51
PROVIDERS: PCP Nurse Practitioner Family; Visit Provider Nurse Practitioner Family
DX: Z79.01 Long term (current) use of anticoagulants (principal); I26.99 Other pulmonary embolism without acute cor pulmonale
CPT/HCPCS: 36415; 85610

== ENCOUNTER 2025-11-10 02:55 | Outpatient (CLI) | payer MEDICARE, SELFPAY ==
[2025-11-10 14:14] LABS: INR 2.9 (0.9-1.1); Prothrombin Time 27.7 sec (9.1-11.1)
== END 2025-11-10 02:56 | disposition home or self-care (01) ==
LOC: LBO 02:55
PROVIDERS: PCP Nurse Practitioner Family; Visit Provider Nurse Practitioner Family
DX: Z79.01 Long term (current) use of anticoagulants (principal); I26.99 Other pulmonary embolism without acute cor pulmonale
CPT/HCPCS: 36415; 85610